=== PATIENT | female | born 1950 | race Caucasian/White ===

== ENCOUNTER 2019-08-13 14:03 | Outpatient (CLI) | payer MEDICARE, SELFPAY ==
[2019-08-13 15:43] LABS: Add Urine Microscopic? YES; Appearance Urine Clear (Clear); Basophils Percent Auto 0.4 % (0.2-1.2); Bilirubin Urine Negative (Negative); Blood Urine 1+ (Negative); Color Urine Yellow (Yellow); Eosinophils Absolute Auto 0.2 K/mm3 (0-0.3); Eosinophils Percent Auto 2.2 % (0-4.4); Glucose Urine UA Negative (Negative); Hematocrit 41.5 % (37.0-47.0); Immature Granulocyte Absolute 0.03 K/mm3 (0.00-0.031); Immature Granulocyte Percent A 0.4 % (0-0.5); Ketones Urine Trace mg/dL (Negative); Leukocyte Esterase Ur Negative LEU/UL (Negative); Lymphocytes Absolute Auto 2.47 K/mm3 (0.9-3.2); Lymphocytes Percent Auto 30.8 % (18.3-44.2); Mean Corpuscular HGB Conc 31.3 g/dl (32-36); Mean Corpuscular Hemoglobin 29.5 pg (26-34); Mean Corpuscular Volume 94.1 fl (80-100); Mean Platelet Volume 11.9 fl (7.4-10.4); Monocytes Absolute Auto 0.6 K/mm3 (0.1-0.6); Mucus Urine Rare /lpf; Neutrophils Absolute Auto 4.8 K/mm3 (1.3-6.7); Neutrophils Percent Auto 59.2 % (45.5-73.1); Nitrate Urine Negative (Negative); Platelet Count Result 173 k/mm3 (150-375); Protein Urine 1+ mg/dL (Negative); Red Blood Count 4.41 M/mm3 (4.2-5.4); Red Cell Distribution Width 13.2 % (11.5-14.5); Squamous Epithelial Cell Urine Few /hpf (Few); WBC Urine 0-3 /hpf
[2019-08-13 15:48] LABS: INR 0.9; Prothrombin Time 12.2 Seconds (11.1-14.7)
[2019-08-13 15:49] LABS: Partial Thromboplastin Time 31.5 SECONDS (22.3-36.8)
[2019-08-13 15:51] LABS: Albumin Level 4.1 g/dL (3.5-5.1); Blood Urea Nitrogen 14 mg/dL (7-17); Calcium 8.3 mg/dL (8.4-10.2); Carbon Dioxide 32 mmol/L (22-30); Chloride 99 mmol/L (98-107); Estimated Glomerular Filt Rate > 60; Glucose 86 mg/dL (65-105); Potassium 3.9 mmol/L (3.4-5.0); Sodium 142 mmol/L (137-145)
[2019-08-13 16:10] LABS: Hemoglobin A1C 5.5 % (<5.7)
[2019-08-13 16:22] LABS: Urine Cotinine NEGATIVE
== END 2019-08-13 14:04 | disposition home or self-care (01) ==
LOC: ANHSURGERY 14:08
PROVIDERS: PCP Family Medicine Adolescent Medicine; Visit Provider Orthopaedic Surgery
DX: Z01.818 Encounter for other preprocedural examination (principal); M17.11 Unilateral primary osteoarthritis, right knee
CPT/HCPCS: 36415; 80048; 80307; 81001; 82040; 83036; 85025; 85610; 85730; 86850; 86900; 86901; 87081

== ENCOUNTER 2019-08-19 14:49 | Inpatient (IN) | payer MEDICARE, SELFPAY ==
[2019-08-13 14:43] VITALS: BP 128/54; PULSE 50; RESP 20; TEMP 36.8; O2SAT 97; BMI 23.7
[2019-08-19] VITALS (12 sets, daily range): BP systolic 111–168; BP diastolic 46–84; PULSE 51–85; RESP 12–18; TEMP 36.3–37.1; O2SAT 95–100
--- NOTE | ~2019-08-19 | XR_ITS ---
EXAMINATION: XR knee RT 2V DATE: 08/19/2019 14:53 CDT INDICATION: Right total knee arthroplasty TECHNIQUE: 2 views right knee FINDINGS: There is a right total knee arthroplasty in expected position. Subcutaneous gas with fluid and air in the joint and overlying skin rufus are consistent with recent surgery. No evidence of p eriprosthetic fracture. IMPRESSION: 1. Recent right total knee arthroplasty. Reviewed, dictated and finalized at location A.
--- NOTE | 2019-08-19 08:20 | WPDHPUPDATE1 ---
History and Physical Update Update Date/Time: 08/19/19 08:20 History and Physical has been reviewed, including an updated exam of the patient. There are NO changes in the patient's condition. Risks, benefits, and alternatives have been discussed and questions answered. Patient agrees to proceed with procedure.
--- NOTE | 2019-08-19 08:21 | WPDHPUPDATE1 ---
History and Physical Update Update Date/Time: 08/19/19 08:21 History and Physical has been reviewed, including an updated exam of the patient. There are NO changes in the patient's condition. Risks, benefits, and alternatives have been discussed and questions answered. Patient agrees to proceed with procedure.
--- NOTE | 2019-08-19 09:35 | WPDANESPNB ---
Anes - Peripheral Nerve Block Date/Time: 08/19/19 09:35 I have discussed with the patient/family/POA the placement of a peripheral nerve block for post-operative pain management, including associated risks, benefits, complications, and side effects. Alternative methods of post-operative analgesia were detailed. Questions were solicited and answers provided to the satisfaction of the patient/family/POA. Time-Out: A pre-procedural Time-Out was completed immediately before starting the procedure and confirmed: Patient Identification, Site, Procedure, Patient Position and the Availability of Requisite Equipment. Clinical Indications: Acute post-operative pain management requested by the operative surgeon. Nerve Block Insertion Note Anes-nerve block: adductor canal right Patient position: supine Skin prep: chlorhexidine Needle: 22 gauge, stimulating, insulated echogenic needle. Needle length: 80 mm Technique: ultrasound Injectate: bupivacaine 0.5% with epi 5 mcg/ml (30cc) Observations: tolerated well Complications: none Procedure start time:: 1144 Procedure end time:: 114
[2019-08-19] MEDS: LACTATED RINGERS 1,000 ML 30 ML IV CONT ×2 (10:40→14:26)
--- NOTE | 2019-08-19 10:51 | WPDANESEPPF ---
Anes - Initial Pre Proc Eval Procedure: Operation Date: 08/19/19 12:00 Proposed Procedures p Right Total Knee Arthroplasty - Hector Merrill MD Date/Time: 08/19/19 10:51 Surgeon: Hector Merrill MD Pre Op Diagnosis: Rt Knee DJD Patient Data Age: 68 Gender: F Height: 1.57 m Weight: 58.9 kg Last Vital Signs Temp 36.8 C 08/13/19 14:43 Pulse 50 L 08/13/19 14:43 Resp 20 08/13/19 14:43 BP 128/54 L 08/13/19 14:43 Pulse Ox 97 08/13/19 14:43 Allergies Allergy/AdvReac Type Severity Reaction Status Date / Time adhesive tape Allergy Unknown RASH Verified 08/19/19 11:08 clindamycin Allergy Unknown Diarrhea Verified 08/19/19 11:08 morphine Allergy Unknown Nausea and Verified 08/19/19 11:08 Vomiting nitrofurantoin Allergy Unknown Nausea and Verified 08/19/19 11:08 Vomiting Penicillins Allergy Unknown Rash Verified 08/19/19 11:08 Sulfa (Sulfonamide AdvReac Mild FINE RASH Verified 08/19/19 11:08 Antibiotics) Home Medications Medication Instructions Recorded Confirmed Type chlorhexidine gluconate 4 % 1 applic TOPICAL ONCE #237 ml 07/22/19 08/13/19 Rx topical liquid alirocumab [Praluent Pen] 75 mg SUBCUT ONCE 08/13/19 08/13/19 History alprazolam 1 mg PO TID PRN 08/13/19 08/13/19 History clonazepam [Klonopin] 1 mg PO HS 08/13/19 08/13/19 History oamaksb-jwncfileng-TBJ-caff 1 cap PO Q4-6H PRN 08/13/19 08/13/19 History [Ascomp with Codeine] donepezil [Aricept] 10 mg PO HS 08/13/19 08/13/19 History duloxetine [Cymbalta] 60 mg PO DAILY 08/13/19 08/13/19 History ezetimibe [Zetia] 10 mg PO HS 08/13/19 08/13/19 History fexofenadine [Swapna Allergy] 180 mg PO DAILY 08/13/19 08/13/19 History gabapentin 800 mg PO QID 08/13/19 08/13/19 History memantine 5 mg PO BID 08/13/19 08/13/19 History nitroglycerin [Nitrostat] 0.4 mg SUBLINGUAL ONCE PRN 08/13/19 08/13/19 History oxycodone 15 mg PO Q6H PRN 08/13/19 08/13/19 History pantoprazole 40 mg PO HS 08/13/19 08/13/19 History rosuvastatin [Crestor] 40 mg PO HS 08/13/19 08/13/19 History Other Studies: Neg stress echo , EF 70% 2014 medical and cardiac clearance in chart Patient hx anesthesia problems: none Family hx anesthesia problems: none PMFSH Past Medical History Medical History (Updated 08/18/19 @ 10:41 by Emerson Seals DO) Chronic pain Chronic, continuous use of opioids Dementia Fibromyalgia GERD (gastroesophageal reflux disease) History of heart attack 1994 Hyperlipidemia Migraine MVP (mitral valve prolapse) Neuropathy Osteoarthritis Seizure last one in Surgical History Surgical History (Updated 08/18/19 @ 10:41 by Emerson Seals DO) History of coronary artery stent placement x2 2007 Hx of CABG x2 vessel 1994 Social History Social History Smoking status: Current every day smoker Alcohol intake: current Anes - Eval Final PreProcedure Day of Procedure 08/19/19 10:51 Patient weight: normal Heart: regular rate and rhythm Lungs: clear to auscultation and normal air movement Airway: Mallampati scale class III Neurological: alert and oriented Last oral intake: >/= 8 hours ASA classification: III Emergent: no Anesthetic plan: proceed Anesthesia type and monitoring: general LMA and standard monitoring Informed Consent: The patient's anesthetic plan and its attendant risks and benefits were discussed with the patient/family/POA. Questions were solicited and answers provided to the satisfaction of the patient/family/POA.
[2019-08-19] MEDS: TRANEXAMIC ACID 1,000MG/ISO100 1,000 MG/100 ML BAG 200 MG IVPB (11:15)
[2019-08-19] MEDS: IBUPROFEN IV 800 MG/200 ML 800 MG/200 ML BAG 400 MG IVPB (11:25)
[2019-08-19] MEDS: ceFAZolin 2 GM/D5W 50 ML 2 GM/50 ML BAG IVPB ×2 (11:57→17:29)
[2019-08-19] MEDS: GENTAMICIN BONE CEMENT REFOBACIN 1 EACH TOPICAL (13:02)
--- NOTE | 2019-08-19 14:43 | PM.OP ---
Procedure Note - Brief Procedure Note - Brief Date of procedure: 08/19/19 Pre-op diagnosis: Rt Knee DJD Post-op diagnosis: same Procedure performed: R TKA Anesthesia: GETA Surgeon: Hector Merrill MD Estimated blood loss (mL): 100 Complications: No immediate complications Condition: stable Disposition: PACU
--- NOTE | 2019-08-19 16:36 | ADMGEN ---
This patient, Natalie Millan, was admitted to 3 Med Surg Room 329-01. Patient/family oriented to hospital policies and general routines including ID bracelet, bed and alarms, visiting hours, pain management, procedures, bathroom and other care routines, personal items, smoking policy, room service/diet, and visiting hours. Valuables list has been completed. Information on how to activate the Rapid Response Team has been discussed. Patient/Family are encouraged to report perceived risks to care and to ask questions if they do not understand what they are told or what they should do.
[2019-08-19] MEDS: DOCUSATE SODIUM 100 MG CAPSULE PO (17:26)
[2019-08-19] MEDS: CELECOXIB 200 MG CAPSULE PO (17:27)
[2019-08-19] MEDS: MEMANTINE 5 MG TABLET PO (17:27)
[2019-08-19] MEDS: SODIUM CHLORIDE 0.9% IV 1,000 ML 125 ML IV CONT (18:02)
[2019-08-19] MEDS: DIAZEPAM 5 MG TABLET PO (19:02)
--- NOTE | 2019-08-19 20:23 | OP_ITS ---
DATE OF PROCEDURE: 08/19/2019 PREOPERATIVE DIAGNOSIS: Right knee DJD. POSTOPERATIVE DIAGNOSIS: Right knee DJD. PROCEDURE: Right total knee arthroplasty. ANESTHESIA: General. COMPLICATIONS: None. INDICATIONS: This is a 68-year-old female with right knee DJD and severe pain and she was indicated for right total knee arthroplasty. DESCRIPTION OF PROCEDURE: The patient was taken to the operating room in stable condition and placed in the supine position. General anesthesia was induced and then, the right lower extremity was prepped and draped sterilely from the toes to the thigh. A midline skin incision was made. Medial parapatellar arthrotomy was made. Patella was everted. IM emily was placed in the femur and distal femoral cut was made at 5 degrees of valgus on the femur removing approximately 9 mm of bone from the high side. Next, the knee was sized to a 65, so a cutting block then was placed in line with Whitesides line and anterior, posterior, and chamfer cuts were made to the femur. Next, an IM emily was placed in the tibia and a transtibial cut was made removing approximately 10 mm of bone from the high side of the tibia. The tibia was planed to a smooth surface. Posterior osteophytes were removed from the femur with an osteotome. A trial of 75 tibial component was placed and then, a trial 65 femoral component was placed. The tibial trial was in line with the 1/3rd medial aspect of the tibial tubercle. A 12 CR poly trial was placed, and the knee came out to full extension. Next, the patella was measured and it measured approximately 27 mm in thickness. The patella then was cut and the cut was approximately 7 mm. A patellar component guide then was placed and drill holes were performed. A trial 31 patellar component was placed. Then, the knee joint was reduced when the knee was placed for range of motion and it was found that there was good patellar tracking without any tilt. There was good stability in varus and valgus stress. There was good anterior-posterior stability and the knee came out to full extension. There was no excessive rollback in flexion. Trial instrumentation was removed and then, a Biomet #75 tibia was cemented in place and then, a 65 femoral component was cemented into place and then, a 31 3-pronged polyethylene patellar component was placed. Once cement was hardened, the knee came out to full extension again and it was very stable in the anterior-posterior plane also of the varus-valgus plane as well. The patella tracked without any tilt. There was no excessive rollback in flexion. The wound was irrigated thoroughly. The tourniquet was deflated. The bleeders were cauterized. The knee joint was irrigated with sterile Betadine sterile water for 3 minutes and the fascial layer was approximated with #1 Vicryl, subcutaneous tissue with 2-0 Vicryl, and the skin was approximated with rufus. Wound was washed, placed a sterile dressing. The patient was extubated, sent to Recovery. Liz I MT: Riley
[2019-08-19] MEDS: DONEPEZIL HCL 10 MG TABLET PO (20:52)
[2019-08-19] MEDS: ROSUVASTATIN 10 MG TABLET 40 MG PO (20:53)
[2019-08-19] MEDS: FAMOTIDINE 20 MG TABLET PO (20:53)
[2019-08-19] MEDS: EZETIMIBE 10 MG TABLET PO (20:53)
[2019-08-20 02:00] VITALS: BP 130/60; PULSE 63; RESP 18; TEMP 37.2; O2SAT 97
[2019-08-20] MEDS: ceFAZolin 2 GM/D5W 50 ML 2 GM/50 ML BAG IVPB ×2 (02:36→10:06)
[2019-08-20 06:00] VITALS: BP 133/63; PULSE 60; RESP 20; TEMP 36.4; O2SAT 99
[2019-08-20 06:05] LABS: Basophils Percent Auto 0.1 % (0.2-1.2); Eosinophils Percent Auto 0.1 % (0-4.4); Hematocrit 33.4 % (37.0-47.0); Hemoglobin 10.5 g/dL (12.0-15.0); Immature Granulocyte Absolute 0.08 K/mm3 (0.00-0.031); Immature Granulocyte Percent A 0.6 % (0-0.5); Lymphocytes Absolute Auto 1.55 K/mm3 (0.9-3.2); Lymphocytes Percent Auto 11.1 % (18.3-44.2); Mean Corpuscular HGB Conc 31.4 g/dl (32-36); Mean Corpuscular Hemoglobin 29.5 pg (26-34); Mean Corpuscular Volume 93.8 fl (80-100); Monocytes Absolute Auto 0.7 K/mm3 (0.1-0.6); Monocytes Percent Auto 4.9 % (2.6-8.5); Neutrophils Absolute Auto 11.6 K/mm3 (1.3-6.7); Neutrophils Percent Auto 83.2 % (45.5-73.1); Platelet Count Result 112 k/mm3 (150-375); Red Blood Count 3.56 M/mm3 (4.2-5.4); Red Cell Distribution Width 12.9 % (11.5-14.5)
[2019-08-20 07:25] LABS: Blood Urea Nitrogen 9 mg/dL (7-17); Calcium 8.6 mg/dL (8.4-10.2); Carbon Dioxide 31 mmol/L (22-30); Chloride 106 mmol/L (98-107); Estimated CRCL calculation 59 ml/min; Estimated Glomerular Filt Rate > 60; Glucose 100 mg/dL (65-105); Potassium 4.5 mmol/L (3.4-5.0); Sodium 139 mmol/L (137-145)
--- NOTE | 2019-08-20 08:42 | P.PNAN_ITS ---
Anes - Prog Note Post-Op Date/Time: 08/20/19 08:42 Cardiovascular status: normal Respiratory status: normal Airway patency: baseline Mental status: baseline Post-Op hydration status: normal Vital Signs: Last Vital Signs Temp 97.6 F 08/20/19 06:00 Pulse 60 08/20/19 06:00 Resp 20 08/20/19 06:00 BP 133/63 08/20/19 06:00 Pulse Ox 99 08/20/19 06:00 Pain Score (VAS): knee pain tolerable and well controlled with block. pt's primary complaint is her chronic back pain. using her spinal stimulator to try to control. awaiting ortho to adjust pain meds. I/O: Intake & Output 08/19/19 08/20/19 08/20/19 23:59 07:59 15:59 Intake Total 690 1050 Balance 690 1050 Laboratory Tests 08/20/19 05:41 08/20/19 05:41 08/20/19 08/20/19 05:41 05:41 WBC 14.0 H RBC 3.56 L Hgb 10.5 L Hct 33.4 L MCV 93.8 MCH 29.5 MCHC 31.4 L RDW 12.9 Plt Count 112 L MPV 12.0 H Immature Gran % (Auto) 0.6 H Neut % (Auto) 83.2 H Lymph % (Auto) 11.1 L [place] % (Auto) 4.9 Eos % (Auto) 0.1 Baso % (Auto) 0.1 L Lymph # (Auto) 1.55 [place] # (Auto) 0.7 H Eos # (Auto) 0.0 Baso # (Auto) 0.0 Abs Immat Gran (auto) 0.08 H Absolute Neuts (auto) 11.6 H Absolute Nucleated RBC 0.0 Nucleated RBC % 0.0 Sodium 139 Potassium 4.5 Chloride 106 Carbon Dioxide 31 H BUN 9 D Creatinine 0.60 L Estim Creat Clear Calc 59 Estimated GFR > 60 Glucose 100 Calcium 8.6 Post-procedural complaints: none Patient Feedback: Patient satisfied with anesthetic care.
[2019-08-20] MEDS: DOCUSATE SODIUM 100 MG CAPSULE PO (10:05)
[2019-08-20] MEDS: ASPIRIN 325 MG ENTERIC TABLET 650 MG PO (10:05)
[2019-08-20] MEDS: DULOXETINE 60 MG CAPSULE.DR PO (10:05)
[2019-08-20] MEDS: CELECOXIB 200 MG CAPSULE PO (10:06)
[2019-08-20] MEDS: FAMOTIDINE 20 MG TABLET PO (10:06)
--- NOTE | 2019-08-20 10:45 | PC.NURSE ---
Dr Merrill notified at office that patient safe from physical therapy standpoint for discharge.
[2019-08-20] MEDS: MEMANTINE 5 MG TABLET PO (11:33)
[2019-08-20 12:12] VITALS: BMI 23.3
--- NOTE | 2019-08-20 14:07 | PM.PNORT ---
Progress Note: A&P Additional Plan POD 1 DOING WELL. SHE HAS PASSED PT AND WOULD LIKE TO GO HOME. SHE WILL F/U IN 3 WEEKS. Time Spent With Patient Time with patient: 15 - 25 minutes Subjective Subjective Date/Time Seen: 08/20/19 14:07 POD 1 DOING WELL. NO CALF PAIN Exam Extrem: Other: VSS AFEBRILE DRESSING DRY [place] INTACT NEG HOMANS SIGN. Objective Data Vital Signs Vital Signs: Vital Signs - 24 hr 08/19/19 14:26 08/19/19 14:40 08/19/19 14:49 Temperature 36.8 C 36.3 C L Pulse Rate 82 82 83 Respiratory Rate 13 12 16 Blood Pressure 146/67 H 165/67 H 148/70 H Pulse Oximetry 97 100 96 08/19/19 14:55 08/19/19 15:04 08/19/19 15:10 Temperature 36.3 C L Pulse Rate 85 84 84 Respiratory Rate 14 16 17 Blood Pressure 167/84 H 130/55 L 111/59 L Pulse Oximetry 100 96 95 08/19/19 15:20 08/19/19 15:34 08/19/19 15:35 Temperature 36.4 C L Pulse Rate 72 78 65 Respiratory Rate 13 18 12 Blood Pressure 160/60 H 129/58 L 158/62 H Pulse Oximetry 98 99 98 08/19/19 15:50 08/19/19 22:00 08/20/19 02:00 Temperature 36.7 C 37.2 C Pulse Rate 83 63 63 Respiratory Rate 14 18 18 Blood Pressure 168/67 H 125/50 L 130/60 Pulse Oximetry 99 97 97 08/20/19 06:00 Temperature 36.4 C Pulse Rate 60 Respiratory Rate 20 Blood Pressure 133/63 Pulse Oximetry 99 Intake/Output Intake/Output: Intake & Output 08/17/19 08/18/19 08/19/19 08/20/19 23:59 23:59 23:59 23:59 Intake Total 1040 1770 Output Total 575 Balance 465 1770 Meds/Results Medications: Active Medications Generic Name Dose Route Start Last Admin Trade Name Freq PRN Reason Stop Dose Admin Acetaminophen 1,000 mg 08/19/19 14:49 Tylenol Tablet PO Q6H PRN Mild Pain (1-3) Alprazolam 1 mg 08/19/19 15:57 Xanax PO TID PRN Agitation Aspirin 650 mg 08/20/19 09:00 08/20/19 10:05 Aspirin Ec PO 650 mg DAILY COLLIN Administration Celecoxib 200 mg 08/19/19 17:00 08/20/19 10:06 Celebrex PO 200 mg BIDWM COLLIN Administration Clonazepam 1 mg 08/19/19 21:00 08/20/19 03:56 Klonopin Tablet PO Not Given HS COLLIN Diazepam 5 mg 08/19/19 14:49 08/19/19 19:02 Valium Po PO 5 mg Q8H PRN Administration Spasms Diphenhydramine HCl 25 mg 08/19/19 14:49 Benadryl Inj IV PUSH Q6H PRN Itching Docusate Sodium 100 mg 08/19/19 17:00 08/20/19 10:05 Colace Capsule PO 100 mg BID COLLIN Administration Donepezil HCl 10 mg 08/19/19 21:00 08/19/19 20:52 Aricept PO 10 mg HS COLLIN Administration Duloxetine HCl 60 mg 08/20/19 09:00 08/20/19 10:05 Cymbalta PO 60 mg DAILY COLLIN Administration Ezetimibe 10 mg 08/19/19 21:00 08/19/19 20:53 Zetia PO 10 mg HS COLLIN Administration Famotidine 20 mg 08/19/19 21:00 08/20/19 10:06 Pepcid PO 20 mg Q12HR COLLIN Administration Fentanyl Citrate 25 mcg 08/18/19 10:41 08/19/19 15:49 Sublimaze IV PUSH 25 mcg Q2M PRN Administration Pain Lactated Ringer's 1,000 mls @ 30 mls/hr 08/18/19 10:45 08/20/19 11:37 Lr - Lactated Ringers Iv IV CONT Not Given .Q24H COLLIN Lactated Ringer's 1,000 mls @ 30 mls/hr 08/18/19 10:45 08/20/19 11:38 Lr - Lactated Ringers Iv IV CONT Not Given .Q24H COLLIN Memantine 5 mg 08/19/19 17:00 08/20/19 11:33 Namenda PO 5 mg BID COLLIN Administration Naloxone HCl 0.1 mg 08/19/19 14:49 Narcan IV PUSH Q2M PRN Opiate Reversal Nitroglycerin 0.4 mg 08/19/19 15:57 Nitrostat Subl 0.4 Mg (1/150) SUBLINGUAL ONCE PRN Chest Pain Non-Formulary Medication 75 mg 08/19/19 15:57 Alirocumab [Praluent Pen] SUB-Q 09/18/19 15:58 ONCE COLLIN Ondansetron HCl 4 mg 08/18/19 10:41 Zofran Inj IV PUSH ONCE PRN Nausea Ondansetron HCl 4 mg 08/19/19 14:49 Zofran Inj IV PUSH Q4H PRN Nausea And Vomiting Oxycodone/Acetaminophen 1 tablet 08/19/19 14:49 08/20/19 02:40 Percocet 5-325 Mg PO 1 ta
--- NOTE | 2019-08-20 14:16 | P.DS_ITS ---
DS: Diagnosis Admitting Diagnosis Admitting Diagnosis: Unilateral primary osteoarthritis, right knee DS: Summary Time Spent with Patient Time attestation: Total time spent providing and/or coordinating discharge se rvices: DS: Data Data Completed and Pending Labs on day of discharge: Labs from last 24 hours 08/20/19 08/20/19 05:41 05:41 WBC 14.0 H RBC 3.56 L Hgb 10.5 L Hct 33.4 L MCV 93.8 MCH 29.5 MCHC 31.4 L RDW 12.9 Plt Count 112 L MPV 12.0 H Immature Gran % (Auto) 0.6 H Neut % (Auto) 83.2 H Lymph % (Auto) 11.1 L [place] % (Auto) 4.9 Eos % (Auto) 0.1 Baso % (Auto) 0.1 L Lymph # (Auto) 1.55 [place] # (Auto) 0.7 H Eos # (Auto) 0.0 Baso # (Auto) 0.0 Abs Immat Gran (auto) 0.08 H Absolute Neuts (auto) 11.6 H Absolute Nucleated RBC 0.0 Nucleated RBC % 0.0 Sodium 139 Potassium 4.5 Chloride 106 Carbon Dioxide 31 H BUN 9 D Creatinine 0.60 L Estim Creat Clear Calc 59 Estimated GFR > 60 Glucose 100 Calcium 8.6 Discharge Plan Discharge Attending physician on discharge: Hector Merrill Consulting providers: Shaggy Spence Discharging Clinician: Hector Merrill Anticipated Discharge Date/Time: 08/20/19 14:11 Patient Disposition: Home Health Service Activity: may shower, no driving and follow weight bearing status Diet: as tolerated Wound Care Instructions: keep dressing dry Discharge Instructions: TAKE ASPIRIN 325 MG 2 TABS PER DAY X 4 WEEKS Patient Instructions: Antibiotic Form, Pain Management (DC), Precautions after Total Joint Replacement Surgery (DC), Knee Replacement (DC) Stand Alone Forms: General Discharge Information Follow-up/Referrals: Hector Merrill MD [Physician] - 3 Weeks Discharge Medications: Continued alprazolam 1 mg Tablet 1 mg PO TID PRN (Reason: Agitation) RF: 0 donepezil [Aricept] 10 mg Tablet 10 mg PO HS RF: 0 clonazepam [Klonopin] 1 mg Tablet 1 mg PO HS RF: 0 fexofenadine [Swapna Allergy] 180 mg Tablet 180 mg PO DAILY RF: 0 oxycodone 15 mg Tablet 15 mg PO Q6H PRN (Reason: PAIN) RF: 0 gabapentin 800 mg Tablet 800 mg PO QID RF: 0 boyqcoc-telzyjdhat-HYI-caff [Ascomp with Codeine] 25-11-199-40 mg Capsule 1 cap PO Q4-6H PRN (Reason: MIGRAINE) RF: 0 pantoprazole 40 mg Tablet,Delayed Release (Dr/Ec) 40 mg PO HS RF: 0 nitroglycerin [Nitrostat] 0.4 mg Tablet, Sublingual 0.4 mg SUBLINGUAL ONCE PRN (Reason: Chest Pain) RF: 0 ezetimibe [Zetia] 10 mg Tablet 10 mg PO HS RF: 0 rosuvastatin [Crestor] 40 mg Tablet 40 mg PO HS RF: 0 memantine 5 mg Tablet 5 mg PO BID RF: 0 duloxetine [Cymbalta] 60 mg Capsule,Delayed Release(Dr/Ec) 60 mg PO DAILY RF: 0 Praluent Pen 75 mg/mL Pen Injector 75 mg SUBCUT ONCE RF: 0 chlorhexidine gluconate [Hibiclens] 4 % liquid 1 applic TOPICAL ONCE Qty: 237 RF: 0 Date of admission: 08/19/19 14:49 Primary Care Provider: Abdiel Butcher Admitting Provider: Hector Merrill Attending physician on admission: Hector Merrill Quality VTE Prophylaxis VTE prophylaxis: pharmacologic ordered
--- NOTE | 2019-08-20 14:17 | P.DS_ITS ---
DS: Diagnosis Admitting Diagnosis Admitting Diagnosis: Unilateral primary osteoarthritis, right knee DS: Summary Time Spent with Patient Time attestation: Total time spent providing and/or coordinating discharge se rvices: DS: Data Data Completed and Pending Labs on day of discharge: Labs from last 24 hours 08/20/19 08/20/19 05:41 05:41 WBC 14.0 H RBC 3.56 L Hgb 10.5 L Hct 33.4 L MCV 93.8 MCH 29.5 MCHC 31.4 L RDW 12.9 Plt Count 112 L MPV 12.0 H Immature Gran % (Auto) 0.6 H Neut % (Auto) 83.2 H Lymph % (Auto) 11.1 L [place] % (Auto) 4.9 Eos % (Auto) 0.1 Baso % (Auto) 0.1 L Lymph # (Auto) 1.55 [place] # (Auto) 0.7 H Eos # (Auto) 0.0 Baso # (Auto) 0.0 Abs Immat Gran (auto) 0.08 H Absolute Neuts (auto) 11.6 H Absolute Nucleated RBC 0.0 Nucleated RBC % 0.0 Sodium 139 Potassium 4.5 Chloride 106 Carbon Dioxide 31 H BUN 9 D Creatinine 0.60 L Estim Creat Clear Calc 59 Estimated GFR > 60 Glucose 100 Calcium 8.6 Discharge Plan Discharge Attending physician on discharge: Hector Merrill Consulting providers: Shaggy Spence Discharging Clinician: Hector Merrill Anticipated Discharge Date/Time: 08/20/19 14:11 Patient Disposition: Home Health Service Activity: may shower, no driving and follow weight bearing status Diet: as tolerated Wound Care Instructions: keep dressing dry Discharge Instructions: TAKE ASPIRIN 325 MG 2 TABS PER DAY X 4 WEEKS Patient Instructions: Antibiotic Form, Pain Management (DC), Precautions after Total Joint Replacement Surgery (DC), Knee Replacement (DC) Stand Alone Forms: General Discharge Information Follow-up/Referrals: Hector Merrill MD [Physician] - 3 Weeks Discharge Medications: Continued alprazolam 1 mg Tablet 1 mg PO TID PRN (Reason: Agitation) RF: 0 donepezil [Aricept] 10 mg Tablet 10 mg PO HS RF: 0 clonazepam [Klonopin] 1 mg Tablet 1 mg PO HS RF: 0 fexofenadine [Swapna Allergy] 180 mg Tablet 180 mg PO DAILY RF: 0 oxycodone 15 mg Tablet 15 mg PO Q6H PRN (Reason: PAIN) RF: 0 gabapentin 800 mg Tablet 800 mg PO QID RF: 0 gaoayvh-uzaibedowj-BJH-caff [Ascomp with Codeine] 73-81-606-40 mg Capsule 1 cap PO Q4-6H PRN (Reason: MIGRAINE) RF: 0 pantoprazole 40 mg Tablet,Delayed Release (Dr/Ec) 40 mg PO HS RF: 0 nitroglycerin [Nitrostat] 0.4 mg Tablet, Sublingual 0.4 mg SUBLINGUAL ONCE PRN (Reason: Chest Pain) RF: 0 ezetimibe [Zetia] 10 mg Tablet 10 mg PO HS RF: 0 rosuvastatin [Crestor] 40 mg Tablet 40 mg PO HS RF: 0 memantine 5 mg Tablet 5 mg PO BID RF: 0 duloxetine [Cymbalta] 60 mg Capsule,Delayed Release(Dr/Ec) 60 mg PO DAILY RF: 0 Praluent Pen 75 mg/mL Pen Injector 75 mg SUBCUT ONCE RF: 0 chlorhexidine gluconate [Hibiclens] 4 % liquid 1 applic TOPICAL ONCE Qty: 237 RF: 0 Date of admission: 08/19/19 14:49 Primary Care Provider: Abdiel Butcher Admitting Provider: Hector Merrill Attending physician on admission: Hector Merrill Quality VTE Prophylaxis VTE prophylaxis: pharmacologic ordered
[2019-08-20 14:36] VITALS: BP 167/61; PULSE 60; RESP 18; TEMP 36.8; O2SAT 97
--- NOTE | 2019-08-20 22:05 | CONS_ITS ---
DATE OF CONSULTATION: 08/20/2019 This is a consult for Dr. Merrill, Orthopedics, medical consultation. HISTORY OF PRESENT ILLNESS: The patient has a history of coronary artery disease, intractable back pain, aneurysm, anxiety, depression, esophagitis, overactive bladder. The patient admitted to the Orthopedic Service under Dr. Merrill for right knee arthroplasty. The patient did well, had her right knee arthroplasty for right knee DJD. No significant problems. MEDICATIONS ON ADMISSION: 1. Crestor 40 p.o. daily. 2. Nitroglycerin 0.4 sublingual. 3. Memantine 5 p.o. b.i.d. 4. Zetia 10 p.o. q.h.s. 5. Cymbalta 60 p.o. daily. 6. Aricept 10 p.o. q.h.s. 7. Klonopin 1 mg p.o. q.h.s. 8. Xanax 1 mg p.o. t.i.d. p.r.n. 9. Protonix 40 p.o. q.h.s. 10. Oxycodone 15 p.o. q.6 p.r.n. 11. Praluent Pen 75 subcutaneous daily. 12. Gabapentin 800 p.o. q.i.d. 13. Swapna 180 p.o. daily. 14. Codeine 32-78-469-40 for migraine. 15. Hibiclens 4% liquid 1 application daily. ALLERGIES: THE PATIENT HAS ALLERGIES TO ADHESIVE TAPE, CLINDAMYCIN, MORPHINE, NITROFURANTOIN, PENICILLIN, SULFA. PAST MEDICAL HISTORY: CAD, lumbar spinal stenosis with chronic back pain, migraine, peripheral neuropathy, anxiety, depression, esophagitis. PAST SURGICAL HISTORY: CABG in 1994, stents in 2006, neck surgery in and , bilateral cataracts. SOCIAL HISTORY: The patient sees Dr. Walker. Smokes occasionally. FAMILY HISTORY: Father has MA. Mother has MA. REVIEW OF SYSTEMS: Systems review positive for knee pain only. PHYSICAL EXAMINATION: VITAL SIGNS: Stable on discharge. GENERAL: The patient is in no acute distress. HEENT: PERRLA. NECK: Supple. LUNGS: Sounds are normal. HEART: Sounds normal. ABDOMEN: Soft, nontender. EXTREMITIES: The patient has a fresh occlusive dressing on the right knee with minimal swelling up to the calf with mild bruising on the knee. PSYCH: The patient is quite anxious. ASSESSMENT AND PLAN: 1. Status post right knee arthroplasty. 2. History of lumbar spinal stenosis. 3. History of intractable back pain. 4. Coronary artery disease. 5. Hyperlipidemia. 6. Anxiety. 7. Depression. 8. Gastroesophageal reflux disease. The patient can be discharged on her home medication. The patient to follow routine advice of Orthopedics. On discharge, the patient has some concerns about bruising of the right knee and swelling. The patient is advised to watch this for the pain or tenderness or increase in redness, mentioned that this is normal after surgery to have some swelling and some minimal bruising. Total time taken in consultation 25 minutes. TYRA ESPINO M.D. CONCRETE BLOCK MAKER CONCRETE BLOCK MAKER D I MT: Riley FRYE
--- NOTE | 2019-09-04 13:53 | PM.DS ---
DS: Diagnosis Admitting Diagnosis Admitting Diagnosis: Unilateral primary osteoarthritis, right knee Discharge Diagnosis (1) Total knee replacement status: Qualifiers: Laterality: right Qualified Code(s): Z96.651 - Presence of right artificial knee joint Code(s): Z96.659 - Presence of unspecified artificial knee joint Status: Acute (2) Right knee DJD: Code(s): M17.11 - Unilateral primary osteoarthritis, right knee Status: Acute DS: Summary Time Spent with Patient Time attestation: Total time spent providing and/or coordinating discharge services: Discharge Plan Discharge Attending physician on discharge: Hector Merrill Consulting providers: Rizwana Galvin Discharging Clinician: Hector Merrill Anticipated Discharge Date/Time: 08/20/19 14:11 Patient Disposition: Home Health Service Activity: may shower, no driving and follow weight bearing status Diet: as tolerated Wound Care Instructions: keep dressing dry Discharge Instructions: TAKE ASPIRIN 325 MG 2 TABS PER DAY X 4 WEEKS per care coordination, Jero BLUNT arranged to eval and treat. P: [phone] Patient Instructions: Pain Management (DC), Precautions after Total Joint Replacement Surgery (DC), Knee Replacement (DC) Stand Alone Forms: General Discharge Information Follow-up/Referrals: Hector Merrill MD [Physician] - 3 Weeks Discharge Medications: Continued donepezil [Aricept] 10 mg Tablet 10 mg PO HS RF: 0 fexofenadine [Swapna Allergy] 180 mg Tablet 180 mg PO DAILY RF: 0 gabapentin 800 mg Tablet 800 mg PO QID RF: 0 [id number]-caff [Ascomp with Codeine] 66-00-254-40 mg Capsule 1 cap PO DAILY PRN (Reason: MIGRAINE) RF: 0 pantoprazole 40 mg Tablet,Delayed Release (Dr/Ec) 40 mg PO BID RF: 0 nitroglycerin [Nitrostat] 0.4 mg Tablet, Sublingual 0.4 mg SUBLINGUAL ONCE PRN (Reason: Chest Pain) RF: 0 ezetimibe [Zetia] 10 mg Tablet 10 mg PO HS RF: 0 rosuvastatin [Crestor] 40 mg Tablet 40 mg PO HS RF: 0 memantine 5 mg Tablet 5 mg PO BID RF: 0 duloxetine [Cymbalta] 60 mg Capsule,Delayed Release(Dr/Ec) 60 mg PO DAILY RF: 0 Praluent Pen 75 mg/mL Pen Injector 75 mg SUBCUT [id number] RF: 0 No Action aspirin 325 mg Tablet 650 mg PO DAILY RF: 0 doxycycline monohydrate 100 mg capsule 100 mg PO BID Qty: 20 RF: 0 alprazolam 1 mg Tablet 1 mg PO TID PRN (Reason: Agitation) Qty: 10 RF: 0 clonazepam [Klonopin] 1 mg Tablet 1 mg PO HS Qty: 10 RF: 0 oxycodone 15 mg Tablet 15 mg PO Q6H PRN (Reason: PAIN) Qty: 10 RF: 0 Date of admission: 08/19/19 14:49 Primary Care Provider: Abdiel Butcher Admitting Provider: Hector Merrill Discharge Date/Time: 08/20/19 16:00 Attending physician on admission: Hector Merrill Quality VTE Prophylaxis VTE prophylaxis: pharmacologic ordered
== END 2019-08-20 16:00 | disposition home health service (06) | DRG 470 ==
LOC: ANH3MEDSUR 16:16
PROVIDERS: Admitting Provider Orthopaedic Surgery; PCP Family Medicine Adolescent Medicine; Visit Provider Orthopaedic Surgery
PROC: 0SRC0J9 Replacement of Right Knee Joint with Synthetic Substitute, Cemented, Open Approach (ICD-10-PCS; CPT 27447; principal; 2019-08-19 12:00)
DX: M17.11 Unilateral primary osteoarthritis, right knee (principal); F03.90 Unspecified dementia, unspecified severity, without behavioral disturbance, psychotic disturbance, mood disturbance, and anxiety; E78.5 Hyperlipidemia, unspecified; M48.061 Spinal stenosis, lumbar region without neurogenic claudication; G89.29 Other chronic pain; Z96.82 Presence of neurostimulator; F17.200 Nicotine dependence, unspecified, uncomplicated; I25.10 Atherosclerotic heart disease of native coronary artery without angina pectoris; I25.2 Old myocardial infarction; I34.1 Nonrheumatic mitral (valve) prolapse; M79.7 Fibromyalgia; G62.9 Polyneuropathy, unspecified; K21.9 Gastro-esophageal reflux disease without esophagitis; G43.909 Migraine, unspecified, not intractable, without status migrainosus; N32.81 Overactive bladder; F41.8 Other specified anxiety disorders; Z79.891 Long term (current) use of opiate analgesic; Z79.899 Other long term (current) drug therapy; Z91.81 History of falling; Z95.1 Presence of aortocoronary bypass graft; Z95.5 Presence of coronary angioplasty implant and graft
CPT/HCPCS: 36415; 73560; 80048; 80307; 81001; 82040; 83036; 85025; 85610; 85730; 86850; 86900; 86901; 87081; 97110; 97116; 97161; 97165; 97530; 97535; A9270; C1713; C1776; J0131; J0171; J0690; J1100; J1741; J2250; J2270; J2370; J2405; J2704; J2795; J3010; J7030; J7120

== ENCOUNTER 2019-08-25 17:12 | Inpatient (IN) | payer MEDICARE, SELFPAY ==
[2019-08-25] VITALS (9 sets, daily range): BP systolic 115–147; BP diastolic 45–67; PULSE 73–104; RESP 13–20; TEMP 36.2–37.3; O2SAT 93–99; BMI 24.9
--- NOTE | ~2019-08-25 | XR_ITS ---
EXAMINATION: XR hip RT min 3V w AP pelvis INDICATION: Right hip pain TECHNIQUE: AP view the pelvis and two views of the right hip are obtained. COMPARISON: None available FINDINGS: Bone alignment is normal. There is no fracture. The visualized soft tissues are unremarkabl e. A neurostimulator device projects over the left iliac wing. IMPRESSION: 1. No acute osseous abnormality. Reviewed, dictated and finalized at location A.
--- NOTE | ~2019-08-25 | XR_ITS ---
EXAMINATION: XR chest 2V DATE: 08/25/2019 19:32 INDICATION: Pain after fall TECHNIQUE: AP and lateral views of the chest are obtained. COMPARISON: 05/13/2015 FINDINGS: The lungs are free of acute opacities. There is no pleural effusion or pneumothorax. Median sternotomy wires are consistent with prior cardiac surgery. Neurostimulator leads entering the centr al spinal canal projecting over the midthoracic spine. There is moderate thoracic spondylosis. IMPRESSION: 1. No acute cardiopulmonary abnormality. Reviewed, dictated and finalized at location A.
--- NOTE | ~2019-08-25 | CT_ITS ---
EXAMINATION: CT brain wo con INDICATION: Head injury COMPARISON: 10/08/2013 TECHNIQUE: Standard unenhanced head CT. The dose-length product (DLP) was 605.33 mGy-cm. The mA was a djusted according to patient size. Iterative reconstruction technique was employed. FINDINGS: There is no acute intraparenchymal hemorrhage. No evidence of mass lesion. Left parasellar aneurysm clips are again noted. No evidence of acute infarction. There is mild periventricular and virgen bcortical hypodensity probably related to small vessel ischemic disease. There is mild prominence of the sulci and ventricles related to cerebral atrophy. Intracranial calcified cerebral atherosclerosis is noted. There are no extra-axial collections. There is no mass effect or midline shift. Changes in the globes are likely from ocular lens surgery. The visualized sinuses and mastoid air cells are we ll aerated. Surgical defect is noted within the left temporal bone. IMPRESSION: 1. No acute intracranial abnormality. 2. Age related findings. Reviewed, dictated and finalized at location A.
--- NOTE | ~2019-08-25 | CT_ITS ---
EXAMINATION: CT cervical spine wo con DATE: 08/25/2019 19:30 INDICATION: Neck pain TECHNIQUE: Computed tomography (CT) of the cervical spine was performed without intravenous contrast. The dose-length product (DLP) was 141.81 mGy-cm. Automated exposure control and iterative reconstruc tion technique were employed. COMPARISON: None FINDINGS: There are changes of anterior fusion from C4 through C6. No fracture is identified. The caron tebral body heights and alignment are normal. There is moderate loss of intervertebral disc space hei ght at C3-4, C5-6, and C6-7. The odontoid is intact. The prevertebral soft tissues are normal. There are minimal airspace opacities of the visualized lung apices. IMPRESSION: 1. Surgical changes in the cervical spine without acute osseous abnormality. 2. Moderate cervical spondylosis. Reviewed, dictated and finalized at location A.
--- NOTE | ~2019-08-25 | XR_ITS ---
EXAMINATION: XR knee RT 3V DATE: 08/25/2019 19:32 INDICATION: Right knee pain, recent knee replacement TECHNIQUE: Four views of the right knee were obtained. COMPARISON: 08/19/2019 FINDINGS: There are postsurgical changes of total knee arthroplasty. There is expected soft tissue ed todd and joint effusion, both of which have decreased. The hardware appears to be intact. IMPRESSION: 1. Changes of recent total knee arthroplasty without evidence of acute abnormality. Reviewed, dictated and finalized at location A. IMPRESSION: 1. Changes of recent total knee arthroplasty without evidence of acute abnormal ity.
--- NOTE | 2019-08-25 17:17 | ED.FALL ---
HPI - Fall General Chief Complaint: Back Pain/Injury Stated Complaint: fall Time Seen by Provider: 08/25/19 17:14 Source: patient, EMS and RN notes reviewed Mode of arrival: EMS Limitations: no limitations History of Present Illness HPI Narrative: Pt is a 68 y/o female who presents to the ED with c/o a fall that occurred last night. Pt notes that she lost her balance and fell in the bathroom. Pt also notes that she hit her posterior head on the bath tub. Per EMS, pt had right knee surgery on 08/19/[address] Merrill. EMS states that her right knee is hot to the touch. Per EMS, pt's family reports the pt is confused, but not severely confused. Pt's confusion began today. EMS states that pt was talking to her spouse about her son being deployed to [facility] which is not true. EMS states the pt's son has been home for about 10 years now. Pt also reports right hip pain and chronic back pain, but denies a fever, vision changes, nausea, abdominal pain, and chest pain. MD complaint: fall Onset (ago): day(s) (1) Fall from: standing Place fall occurred: home Loss of consciousness: none Prolonged down time: no Symptoms prior to fall: none Context: tripped/slipped Location of injury: head (posterior) Associated symptoms (after fall): other (right hip pain, chronic back pain) Related Data Home Medications Medication Instructions Recorded Confirmed Praluent Pen 75 mg SUBCUT ONCE 08/13/19 08/19/19 alprazolam 1 mg PO TID PRN 08/13/19 08/19/19 clonazepam [Klonopin] 1 mg PO HS 08/13/19 08/19/19 crrpebz-aehxmfszke-UKH-caff 1 cap PO Q4-6H PRN 08/13/19 08/19/19 [Ascomp with Codeine] donepezil [Aricept] 10 mg PO HS 08/13/19 08/19/19 duloxetine [Cymbalta] 60 mg PO DAILY 08/13/19 08/19/19 ezetimibe [Zetia] 10 mg PO HS 08/13/19 08/19/19 fexofenadine [Swapna Allergy] 180 mg PO DAILY 08/13/19 08/19/19 gabapentin 800 mg PO QID 08/13/19 08/19/19 memantine 5 mg PO BID 08/13/19 08/19/19 nitroglycerin [Nitrostat] 0.4 mg SUBLINGUAL ONCE PRN 08/13/19 08/19/19 oxycodone 15 mg PO Q6H PRN 08/13/19 08/19/19 pantoprazole 40 mg PO HS 08/13/19 08/19/19 rosuvastatin [Crestor] 40 mg PO HS 08/13/19 08/19/19 Allergies Allergy/AdvReac Type Severity Reaction Status Date / Time adhesive tape Allergy Unknown RASH Verified 08/19/19 11:08 clindamycin Allergy Unknown Diarrhea Verified 08/19/19 11:08 morphine Allergy Unknown Nausea and Verified 08/19/19 11:08 Vomiting nitrofurantoin Allergy Unknown Nausea and Verified 08/19/19 11:08 Vomiting Penicillins Allergy Unknown Rash Verified 08/19/19 11:08 Sulfa (Sulfonamide AdvReac Mild FINE RASH Verified 08/19/19 11:08 Antibiotics) Review of Systems Review of Systems: Narrative: CONSTITUTIONAL: Denies fever. EYES: Denies vision changes. CARDIOVASCULAR: Denies chest pain. GASTROINTESTINAL: Denies nausea and abdominal pain. MUSCULOSKELETAL: Reports right hip pain and chronic back pain. NEUROLOGIC: Reports confusion. All systems reviewed & are unremarkable except as noted in HPI and below PMFSH Past Medical History Medical History (Updated 08/25/19 @ 23:09 by Nicole Cortés MD) Anxiety Brain aneurysm CAD (coronary artery disease) Cataracts, bilateral Chronic pain Chronic, continuous use of opioids DDD (degenerative disc disease) Dementia with frontal lobe atrophy, short term memory loss Depression Diverticulitis Endometriosis Fibrocystic breast disease Fibromyalgia GERD (gastroesophageal reflux disease) History of angina History of heart attack 1994 Hyperlipidemia Kidney stone Liver disease Migraine MVP (mitral valve prolapse) Neuropathy Osteoarthritis Osteomyelitis Osteoporosis Peripheral neuropathy Pneumonia Seasonal allergies Seizure last one in Spinal cord stimulator status Thyroid nodule UTI (urinary tract infection) Surgical History Surgical History (Updated 08/25/19 @ 17:58 by Gay Hendrix) H/O breast biopsy bilateral H/O cervical spine surgery x2, 2006 & 2006 H/
--- NOTE | 2019-08-25 17:21 | ECG_ITS ---
Measurements Intervals [place] Rate: 97 P: 214 DE: 329 QRS: 30 QRSD: 90 T: 44 QT: 322 QTc: 409 Interpretive Statements SINUS RHYTHM FREQUENT ATRIAL PREMATURE COMPLEXES NONSPECIFIC ST-T WAVE ABNORMALITY- DIFFUSE LEADS BASELINE ARTIFACT- I, II, III, AVR, AVL,A VF, V2-V4 ABNORMAL ECG Electronically Signed On 08-25-2019 19:34:50 CDT by Zacarias Lucas D.O.
[2019-08-25] MEDS: SODIUM CHLORIDE 0.9% IV 1,000 ML 999 ML IV CONT (17:39)
[2019-08-25 18:01] LABS: Basophils Percent Auto 0.3 % (0.2-1.2); Eosinophils Absolute Auto 0.1 K/mm3 (0-0.3); Eosinophils Percent Auto 1.1 % (0-4.4); Hematocrit 22.4 % (37.0-47.0); Immature Granulocyte Absolute 0.03 K/mm3 (0.00-0.031); Immature Granulocyte Percent A 0.5 % (0-0.5); Lymphocytes Absolute Auto 1.09 K/mm3 (0.9-3.2); Lymphocytes Percent Auto 17.1 % (18.3-44.2); Mean Corpuscular HGB Conc 31.3 g/dl (32-36); Mean Corpuscular Hemoglobin 29.2 pg (26-34); Mean Corpuscular Volume 93.3 fl (80-100); Mean Platelet Volume 10.9 fl (7.4-10.4); Monocytes Absolute Auto 0.7 K/mm3 (0.1-0.6); Monocytes Percent Auto 11.2 % (2.6-8.5); Neutrophils Absolute Auto 4.4 K/mm3 (1.3-6.7); Neutrophils Percent Auto 69.8 % (45.5-73.1); Platelet Count Result 202 k/mm3 (150-375); Red Cell Distribution Width 12.7 % (11.5-14.5); White Blood Count 6.4 K/mm3 (4.5-10.0)
[2019-08-25 18:11] LABS: INR 1.1; Partial Thromboplastin Time 29.2 SECONDS (22.3-36.8); Prothrombin Time 13.7 Seconds (11.1-14.7)
[2019-08-25 18:13] LABS: Lactic Acid Reflex 0.8 mmol/L (0.7-2.1)
[2019-08-25 18:16] LABS: Blood Urea Nitrogen 17 mg/dL (7-17); Calcium 7.6 mg/dL (8.4-10.2); Carbon Dioxide 31 mmol/L (22-30); Chloride 96 mmol/L (98-107); Estimated CRCL calculation 60 ml/min; Estimated Glomerular Filt Rate > 60; Glucose 106 mg/dL (65-105); Potassium 3.2 mmol/L (3.4-5.0); Sodium 133 mmol/L (137-145)
[2019-08-25 18:29] LABS: CRP 20.8 mg/dL (<1.0)
[2019-08-25 18:35] LABS: Glucose Point of Care 100 (65-105)
[2019-08-25 18:45] LABS: Erythrocyte Sedimentation Rate > 140 mm/hr (0-20)
--- NOTE | 2019-08-25 18:47 | PC.NURSE ---
vanco ivpb stopped at this time per ed physician's verbal request
--- NOTE | 2019-08-25 20:19 | PC.NURSE ---
synovial fluid from rt knee hand carried to lab by yesi cuellar 4 x 4 drsg applied to puncture site per md request
[2019-08-25 20:50] LABS: Appearance Synovial Fluid Bloody (Clear); Color Synovial Fluid Red (Colorless); Source Synovial Fluid Synovial fluid
[2019-08-25 21:02] LABS: RBC Synovial Fluid 29734 /uL (0-0)
[2019-08-25 21:04] LABS: Neutrophils Synovial Fluid 100 % (0-25)
[2019-08-25 21:06] LABS: Crystals Synovial Fluid None Seen (None Seen)
[2019-08-25] MEDS: MORPHINE SULFATE 2 MG/ML INJ IV PUSH (21:27)
--- NOTE | 2019-08-25 22:04 | PC.NURSE ---
blood consent in chart, signed by pt
[2019-08-26 00:10] VITALS: BP 107/46; PULSE 69; RESP 16; TEMP 36.8; O2SAT 94
[2019-08-26] MEDS: SODIUM CHLORIDE 0.9% IV 1,000 ML 125 ML IV CONT ×3 (00:14→16:50)
[2019-08-26 04:35] LABS: Hematocrit 26.8 % (37.0-47.0); Hemoglobin 8.5 g/dL (12.0-15.0)
[2019-08-26 06:00] VITALS: BP 134/54; PULSE 63; RESP 20; TEMP 36.8; O2SAT 96
[2019-08-26 09:21] LABS: Hematocrit 27.4 % (37.0-47.0); Hemoglobin 8.8 g/dL (12.0-15.0)
--- NOTE | 2019-08-26 09:25 | PTEVAL ---
Physical Therapy Evaluation Potential for Rehabilitation: Treatment Plan: I evaluated Natalie Millan and recommend the outlined treatment plan:
--- NOTE | 2019-08-26 12:36 | PM.PNORT ---
Subjective Subjective Date/Time Seen: 08/26/19 12:36 PTIENT WAS ADMITTED WITH SUSPICION OF R KNEE INFECTION. SHE IS 1 WEEKS/P R TKA. SHE WAS NOT HAVING ANY SIGNIFICANT PAIN POSTOPERATIVELY. SHE FELL TWICE AND WAS SENT TO THE ED FOR CONCUSSION EVALUATION. SHE UNDERWENT ASPIRATION DUE TO APPARENT HEMATOMA AND REDNESS. TODAY SHE APPEARS FROM A CLINICAL POINT TO HAVE AN EXPECTED APPEARING R TKA FROM 1 WEEK POSTOP. DESPITE A NORMAL APPEARING KNEE SHE DOES HAVE A POSITIVE GRAM STAIN FROM ASPIRATION. THIS MAY BE A CONTAMINANT WELL. REGARDLESS WE WILL CONTINUE ABX AND FOLLOW HER CRP AND AWAIT CULTURE RESULTS BEFORE PROCEEDING WITH A POSSIBLE WASH OUT. Objective Data Vital Signs Vital Signs: Vital Signs - 24 hr 08/25/19 17:24 08/25/19 18:29 08/25/19 20:26 Temperature 37.3 C Pulse Rate 104 H 89 85 Respiratory Rate 18 14 14 Blood Pressure 147/49 H 130/55 L 118/45 L Pulse Oximetry 99 93 93 08/25/19 21:19 08/25/19 22:00 08/25/19 22:05 Temperature 36.2 C L Pulse Rate 85 85 73 Respiratory Rate 13 16 18 Blood Pressure 136/67 117/59 L 117/45 L Pulse Oximetry 95 97 96 08/25/19 22:45 08/25/19 23:38 08/25/19 23:45 Temperature 36.8 C 36.8 C 37.1 C Pulse Rate 78 78 73 Respiratory Rate 20 20 20 Blood Pressure 119/53 L 119/53 L 115/49 L Pulse Oximetry 94 94 93 08/26/19 00:10 08/26/19 06:00 Temperature 36.8 C 36.8 C Pulse Rate 69 63 Respiratory Rate 16 20 Blood Pressure 107/46 L 134/54 L Pulse Oximetry 94 96 Intake/Output Intake/Output: Intake & Output 08/23/19 08/24/19 08/25/19 08/26/19 23:59 23:59 23:59 23:59 Intake Total 1150 1286 Output Total 1100 Balance 1150 186 Meds/Results Medications: Active Medications Generic Name Dose Route Start Last Admin Trade Name Freq PRN Reason Stop Dose Admin Hydrocodone Bitart/Acetaminophen 2 tab 08/25/19 20:45 08/26/19 08:47 Hansen 5-325 Mg PO 2 tab Q4H PRN Administration Pain Rated 7-10 Sodium Chloride 1,000 mls @ 125 mls/hr 08/25/19 20:45 08/26/19 08:46 Normal Saline Iv IV CONT 125 mls/hr .Q8H COLLIN Administration Ondansetron HCl 4 mg 08/25/19 20:45 Zofran Inj IV PUSH Q4H PRN Nausea Radiology Results: ITS Impressions Head CT 08/25/19 19:35 IMPRESSION: 1. No acute intracranial abnormality. 2. Age related findings. Cervical Spine CT 08/25/19 20:12 IMPRESSION: 1. Surgical changes in the cervical spine without acute osseous abnormality. 2. Moderate cervical spondylosis. Chest X-Ray 08/25/19 20:18 IMPRESSION: 1. No acute cardiopulmonary abnormality. Hip/Pelvis X-Ray 08/25/19 20:22 IMPRESSION: 1. No acute osseous abnormality. Knee X-Ray 08/25/19 20:26 IMPRESSION: 1. Changes of recent total knee arthroplasty without evidence of acute abnormality. Labs Labs: Laboratory Results - last 24 hr 08/25/19 08/25/19 08/25/19 17:49 17:49 17:49 WBC 6.4 RBC 2.40 L Hgb 7.0 L D Hct 22.4 L MCV 93.3 MCH 29.2 MCHC 31.3 L RDW 12.7 Plt Count 202 D MPV 10.9 H Immature Gran % (Auto) 0.5 Neut % (Auto) 69.8 Lymph % (Auto) 17.1 L [place] % (Auto) 11.2 H Eos % (Auto) 1.1 Baso % (Auto) 0.3 Lymph # (Auto) 1.09 [place] # (Auto) 0.7 H Eos # (Auto) 0.1 Baso # (Auto) 0.0 Abs Immat Gran (auto) 0.03 Absolute Neuts (auto) 4.4 Absolute Nucleated RBC 0.0 Nucleated RBC % 0.0 ESR > 140 H PT 13.7 INR 1.1 APTT 29.2 Sodium 133 L Potassium 3.2 L Chloride 96 L Carbon Dioxide 31 H BUN 17 Creatinine 0.70 Estim Creat Clear Calc 60 Estimated GFR > 60 Glucose 106 H POC Capillary Glucose Lactic Acid Calcium 7.6 L C-Reactive Protein 20.8 H Synovial Source Synovial Color Synovial Appearance Synovial RBC Synovial Nuc Cells Synovial Neutrophils Synovial Crystals Blood Type Antibody Screen Crossmatch 08/25/19 08/25/1908/24
--- NOTE | 2019-08-26 14:14 | HP_ITS ---
DATE OF SERVICE: 08/26/2019 HISTORY OF PRESENT ILLNESS: This is a 68-year-old female who reported to the emergency department after she had fallen a few times and hit her head in the bathroom. She is recently postop approximately 1 week from right total knee arthroplasty. She was not complaining of any significant knee pain prior to her admission. She had an uneventful knee replacement without any complications. She denies any loss of consciousness. Does have some confusion per her 's input and she does not complain of any significant knee pain more than expected after knee replacement. She presented to the emergency department and she underwent evaluation by the emergency room physician. The emergency room physician thought that the knee looked suspicious for hemarthrosis versus infection. She had an aspiration, which showed some gram-positive cocci in the aspirate. She was then evaluated for a potential concussion and she was admitted for observation for a potential concussion and for potential infected right knee. She was started on vancomycin and sent to the med/surg floor. Currently, she does not have any significant knee pain, which we generally see after one week's postop and examination of the knee does not show any significant or alarming concern for infection from a typical 1-week postoperative knee. The patient feels appropriate. She answers questions appropriately and this appears to be no different than her preoperative mental status. She denies any other neck pain, any back pain, or any other extremity pain. PAST MEDICAL HISTORY: Anxiety, brain aneurysm, coronary artery disease, cataracts, chronic pain, chronic use of opioids, dementia, depression, diverticulitis, endometriosis, fibrocystic breast disease, fibromyalgia, GERD, angina, heart attack in 1994, hyperlipidemia, kidney stones, liver disease, migraine, mitral valve prolapse, neuropathy, osteoarthritis, osteomyelitis, osteoporosis, peripheral neuropathy, pneumonia, seasonal allergies, seizure disorder, spinal cord stimulator, thyroid nodule, urinary tract infection. SURGICAL HISTORY: Bilateral knee replacements, last one is the right knee 1-week ago, cataract surgery, lumpectomy, tonsillectomy, cervical spine surgery, D and C's, mastectomy, vascular surgery, bunionectomy, cardiac cath, coronary artery stent placement. SOCIAL HISTORY: She smokes half-pack cigarettes a day from former smoking, she currently does not smoke cigarettes. She takes some alcohol intake, is a social drinker. Does not have any history of any illicit drug abuse. PHYSICAL EXAMINATION: HEENT: Pupils are equal and reactive to light and accommodation. Extraocular moves are intact. LUNGS: Clear to auscultation. HEART: Regular rate and rhythm. ABDOMEN: Soft, nontender. Normoactive bowel sounds. EXTREMITIES: The right knee was examined. She has rufus intact. She has mild hematoma of the skin. She does not appear to have any cellulitis. She has no drainage to the wound. Alpha are all intact. She has an effusion, which appears to be hematoma and it is mild and expected for postoperative. She has no active drainage and no drainage is able to be expressed with palpation. She has minimal tenderness in the knee. She has minimal discomfort with active and passive range of motion. She is able to do a straight leg raise without any difficulty. The thigh is nontender. Calf is nontender. Popliteal fossa is nontender. The tib-fib is nontender. She is able to dorsi and plantar flex the right foot. She has dorsalis pedis pulse 2+, posterior tib pulse 2+. The left lower extremity examined. She has a well-healed incision scar. She has smooth range of motion of the knee without any pain. She has no effusion. She has no thigh tenderness. She has no tib-fib
[2019-08-26 14:18] VITALS: BP 128/50; PULSE 75; RESP 16; TEMP 36.6; O2SAT 97
[2019-08-26 15:02] VITALS: BMI 24.9
[2019-08-26 15:19] LABS: Hematocrit 27.5 % (37.0-47.0); Hemoglobin 8.9 g/dL (12.0-15.0)
[2019-08-26] MEDS: CELECOXIB 200 MG CAPSULE PO (16:50)
[2019-08-26] MEDS: MEMANTINE 5 MG TABLET PO (16:50)
--- NOTE | 2019-08-26 19:25 | PM.IMCN ---
Assessment and Plan Assessment and plan (1) Joint infection: Code(s): M00.9 - Pyogenic arthritis, unspecified Status: Acute Assessment and Plan: Per Dr. Merrill. Patient is on vancomycin. Blood cultures are pending. May consider infectious disease if needed. Pain management per Dr. Merrill. (2) Dementia: Code(s): F03.90 - Unspecified dementia without behavioral disturbance Status: Chronic Assessment and Plan: Patient is on Namenda and Aricept. (3) Anxiety: Code(s): F41.9 - Anxiety disorder, unspecified Status: Chronic Assessment and Plan: Continue Xanax. And Klonopin at HS. She also has Valium p.r.n.. May consider downsizing on some of the benzodiazepines. (4) Depression: Code(s): F32.9 - Major depressive disorder, single episode, unspecified Status: Chronic Assessment and Plan: Patient is on Cymbalta. (5) Anemia: Qualifiers: Anemia type: other cause Other causes of anemia: other cause, not classified Qualified Code(s): D64.89 - Other specified anemias Code(s): D64.9 - Anemia, unspecified Status: Acute Assessment and Plan: Patient is at baseline continue to monitor. [facility] Data of Consult Consult date: 08/26/19 Requesting Physician: Hector Merrill MD Primary Care Provider: Abdiel Butcher MD Consult Narrative Narrative: Natalie Millan is a 68 year old female who had a right total knee arthroplasty per Dr. Merrill on the of this month. The patient complained of having a fall on the that occurred the previous night. She lost her balance and fell in the bathroom. She hit the back of her head on the bathtub. She was confused. She was talking to her spouse about their son being deployed to [facility]. And their son has been home for at least 10 years now.Patient was admitted for suspicion of right knee infection. She underwent aspiration due to apparent hematoma and redness and had positive Gram stain from the aspiration. Patient was started on antibiotics and cultures are pending. The hospitalist group was consulted for medical management. Date of service 08/26/2019 Review of Systems Review of Systems: All systems reviewed & are unremarkable except as noted in HPI and below Constitutional: Constitutional: Reports as per HPI and Reports no additional constitutional complaints Eyes: Eyes: Reports as per HPI and Reports no additional eye complaints ENT: Reports system reviewed and no additional complaints, except as documented and Reports Normal hearing present Cardiovascular: Cardiovascular: Reports no additional cardiovascular complaints Respiratory: Respiratory: Reports no additional respiratory complaints and Reports no additional respiratory complaints Gastrointestinal: Gastrointestinal: Reports as per HPI and Reports no additional gastrointestinal complaints Musculoskeletal: Musculoskeletal: Reports no additional musculoskeletal complaints Integumentary/Breasts: Skin/Breast: Reports system reviewed and no additional complaints, except as docu and Reports as per HPI Neurologic: Reports system reviewed and no additional complaints, except as documented, Reports as per HPI and Reports Normal hearing present Psychiatric: Psychiatric: Reports no additional psychiatric complaints and Reports as per HPI Endocrine: Endocrine: Reports no additional endocrine complaints Hematologic/Lymphatic: Hematologic/Lymphatic: Reports no additional hematologic/lymphatic complaints Allergic/Immunologic: Allergic/Immunologic: Reports no additional allergic/immunologic complaints PMFSH Past Medical History Medical History (Updated 08/26/19 @ 19:36 by Cortney Marquez NP) Anxiety Brain aneurysm Status post clips CAD (coronary artery disease) Cataracts, bilateral Chronic pain Chronic, continuous use of opioids DDD (degenerative disc disease) Dementia with frontal lobe atrophy, short term m
[2019-08-26] MEDS: CLONAZEPAM 0.5 MG TAB 1 MG PO (21:05)
[2019-08-26] MEDS: ROSUVASTATIN 10 MG TABLET 40 MG PO (21:05)
[2019-08-26] MEDS: PANTOPRAZOLE 40 MG TABLET PO (21:05)
[2019-08-26] MEDS: DONEPEZIL HCL 10 MG TABLET PO (21:05)
[2019-08-26] MEDS: EZETIMIBE 10 MG TABLET PO (21:05)
[2019-08-26 22:00] VITALS: BP 145/54; PULSE 77; RESP 18; TEMP 36.6; O2SAT 94
[2019-08-27] MEDS: SODIUM CHLORIDE 0.9% IV 1,000 ML 125 ML IV CONT (02:03)
[2019-08-27 06:00] VITALS: BP 155/55; PULSE 73; RESP 18; TEMP 36.6; O2SAT 97
[2019-08-27 06:02] LABS: Basophils Percent Auto 0.1 % (0.2-1.2); Eosinophils Absolute Auto 0.1 K/mm3 (0-0.3); Eosinophils Percent Auto 1.5 % (0-4.4); Hematocrit 28.2 % (37.0-47.0); Immature Granulocyte Absolute 0.04 K/mm3 (0.00-0.031); Immature Granulocyte Percent A 0.6 % (0-0.5); Lymphocytes Absolute Auto 1.02 K/mm3 (0.9-3.2); Lymphocytes Percent Auto 14.2 % (18.3-44.2); Mean Corpuscular HGB Conc 31.9 g/dl (32-36); Mean Corpuscular Hemoglobin 29.3 pg (26-34); Mean Corpuscular Volume 91.9 fl (80-100); Mean Platelet Volume 10.5 fl (7.4-10.4); Monocytes Absolute Auto 0.5 K/mm3 (0.1-0.6); Monocytes Percent Auto 7.4 % (2.6-8.5); Neutrophils Absolute Auto 5.5 K/mm3 (1.3-6.7); Neutrophils Percent Auto 76.2 % (45.5-73.1); Platelet Count Result 263 k/mm3 (150-375); Red Blood Count 3.07 M/mm3 (4.2-5.4); Red Cell Distribution Width 13.3 % (11.5-14.5); White Blood Count 7.2 K/mm3 (4.5-10.0)
[2019-08-27 06:15] LABS: Blood Urea Nitrogen 8 mg/dL (7-17); Calcium 8.1 mg/dL (8.4-10.2); Carbon Dioxide 30 mmol/L (22-30); Chloride 105 mmol/L (98-107); Estimated CRCL calculation 67 ml/min; Estimated Glomerular Filt Rate > 60; Glucose 97 mg/dL (65-105); Potassium 2.7 mmol/L (3.4-5.0); Sodium 138 mmol/L (137-145)
[2019-08-27] MEDS: POTASSIUM CHLORIDE 20 MEQ TABLET 40 MEQ PO (09:08)
[2019-08-27] MEDS: POTASSIUM CHLORIDE 20 MEQ TABLET PO (09:08)
[2019-08-27] MEDS: CELECOXIB 200 MG CAPSULE PO ×2 (09:09→16:52)
[2019-08-27] MEDS: PANTOPRAZOLE 40 MG TABLET PO ×2 (09:09→21:23)
[2019-08-27] MEDS: DULOXETINE 60 MG CAPSULE.DR PO (09:09)
[2019-08-27] MEDS: MEMANTINE 5 MG TABLET PO ×2 (09:09→16:52)
[2019-08-27] MEDS: MAGNESIUM OXIDE 400 MG TABLET PO (10:23)
--- NOTE | 2019-08-27 11:04 | PM.IMPN ---
Progress Note: A&P Assessment and Plan (1) Joint infection: Code(s): M00.9 - Pyogenic arthritis, unspecified Status: Acute Assessment and Plan: Dr. Merrill is the admitting physician. Pain management per Dr. Merrill. Discharge planning per Dr. Merrill. DVT Prophylaxis per Dr. Merrill. The patient was started on IV Vancomycin. Gram stain from right knee aspiration showed Gram-positive cocci. Pending right knee aspiration culture and blood cultures. May consider infectious disease if needed. The patient is otherwise feeling little better today. Will continue monitoring patient's symptoms at this time. (2) Anemia: Qualifiers: Anemia type: other cause Other causes of anemia: other cause, not classified Qualified Code(s): D64.89 - Other specified anemias Code(s): D64.9 - Anemia, unspecified Status: Acute Assessment and Plan: The patient's hemoglobin on arrival was 7.0 and hematocrit was 22.4. She was given 1 unit of PRBCs with improvement of her H&H. Today her hemoglobin was 9 and hematocrit was 28.2%. She has no acute signs of blood loss at this time just healing ecchymosis to her right leg from fall. Continue trending H&H and transfuse as needed. (3) Hypokalemia: Code(s): E87.6 - Hypokalemia Status: Acute Assessment and Plan: The patient's potassium this morning was 2.7 which is severely low. She was given 60 mg p.o. of potassium as well as 400 mg p.o. magnesium. Will recheck her magnesium and potassium 1400 today and replenish as needed. (4) Dementia: Code(s): F03.90 - Unspecified dementia without behavioral disturbance Status: Chronic Assessment and Plan: Patient is on Namenda and Aricept. states she has been more confused lately as well as agitated. Could be from underlying infection versus worsening dementia. (5) Anxiety: Code(s): F41.9 - Anxiety disorder, unspecified Status: Chronic Assessment and Plan: Continue Xanax and Klonopin at HS. She also has Valium p.r.n.. May consider downsizing on some of the benzodiazepines. (6) Depression: Code(s): F32.9 - Major depressive disorder, single episode, unspecified Status: Chronic Assessment and Plan: Patient is on Cymbalta. Patient states she does feel sad that her mother is not around any more to help her after her surgery. Her mother in November of 2018. I informed the patient has been that she may need some type of social media director, counselor or psychiatrist to help her through this time and possible further treatment of her anxiety and depression. Time Spent With Patient Time with patient: 25 - 35 minutes Subjective Date/time seen: 08/27/19 11:04 Interval history: Date of service 08/27/2019: The patient reports feeling slightly confused today but her states it is improved from yesterday when she came into the hospital. She has chronic back pain that she is complaining of since she is laying on her back as well as her right knee swelling and pain. The patient denies any chest pain, shortness of breath, cough, nausea, vomiting, diarrhea, constipation, lightheadedness, dizziness, syncope, headaches, vision changes, or any other symptoms at this time. The patient has been states she has been more confused the last few days and agitated at times. He is very concerned with her mom few falls at home and staying in their small house. He would really like the patient to go to a skilled rehab facility for further therapy before returning back home. Review of Systems Review of Systems: All systems reviewed & are unremarkable except as noted in HPI and be
--- NOTE | 2019-08-27 11:42 | PM.PNORT ---
Progress Note: A&P Assessment and Plan (1) Total knee replacement status: Qualifiers: Laterality: right Qualified Code(s): Z96.651 - Presence of right artificial knee joint Code(s): Z96.659 - Presence of unspecified artificial knee joint Status: Acute Assessment and Plan: Right knee overall continues to appear stable. Initial culture results negative aerobic and anaerobic. Continue with PT/OT. Continue IV antibiotics. Continue to watch culture results. No signs of active infection at this time. Needs potassium replacement. Subjective Subjective Date/Time Seen: 08/27/19 11:42 Patient complaint back pain. States her right knee has minimal pain. She would like to return home as soon as possible. Exam Const: General: healthy appearing; No in distress or confusion Orientation/consciousness: patient oriented x3 and No confusion HENMT: Head: normal to inspection, normocephalic and atraumatic Eyes: Conjunctivae: conjunctivae normal Sclera: sclerae normal Resp: Effort & Inspection: normal respiratory effort and no audible wheezes Neuro: General: patient oriented x3 and No confusion Extrem: Right lower extremity: knee (Knee incision clean dry and intact. Dressing in place. No active drainage) Details: other (Mild erythema threaded surrounding the incision consistent with postop, mild swelling, minimally tender to palpation. Nontender to flexion and extension passive and active.) Psych: Affect: normal affect Objective Data Vital Signs Vital Signs: Vital Signs - 24 hr 08/26/19 14:18 08/26/19 22:00 08/27/19 06:00 Temperature 97.8 F 97.9 F 97.8 F Pulse Rate 75 77 73 Respiratory Rate 16 18 18 Blood Pressure 128/50 L 145/54 H 155/55 H Pulse Oximetry 97 94 97 Intake/Output Intake/Output: Intake & Output 08/24/19 08/25/19 08/26/19 08/27/19 23:59 23:59 23:59 23:59 Intake Total 1150 3626 1380 Output Total 2600 2100 Balance 1150 1026 -720 Meds/Results Medications: Active Medications Generic Name Dose Route Start Last Admin Trade Name Freq PRN Reason Stop Dose Admin Acetaminophen 1,000 mg 08/26/19 12:44 Tylenol Tablet PO Q6H PRN Mild Pain (1-3) Alprazolam 1 mg 08/26/19 13:01 Xanax PO TID PRN Agitation Celecoxib 200 mg 08/26/19 17:00 08/27/19 09:09 Celebrex PO 200 mg BIDWM COLLIN Administration Clonazepam 1 mg 08/26/19 21:00 08/26/19 21:05 Klonopin Tablet PO 1 mg HS COLLIN Administration Diazepam 5 mg 08/26/19 12:44 Valium Po PO Q8H PRN Spasms Diphenhydramine HCl 25 mg 08/26/19 12:44 Benadryl Inj IV PUSH Q6H PRN Itching Donepezil HCl 10 mg 08/26/19 21:00 08/26/19 21:05 Aricept PO 10 mg HS COLLIN Administration Duloxetine HCl 60 mg 08/27/19 09:00 08/27/19 09:09 Cymbalta PO 60 mg DAILY COLLIN Administration Ezetimibe 10 mg 08/26/19 21:00 08/26/19 21:05 Zetia PO 10 mg HS COLLIN Administration Vancomycin HCl 1,000 mg in 250 mls @ 250 mls/hr 08/27/19 12:00 Vancomycin 1,000 Mg/D5w 250 Ml IVPB Q18H COLLIN Magnesium Oxide 400 mg 08/27/19 09:00 08/27/19 10:23 Mag-Ox PO 400 mg QAM COLLIN Administration Memantine 5 mg 08/26/19 17:00 08/27/19 09:09 Namenda PO 5 mg BID COLLIN Administration Naloxone HCl 0.1 mg 08/26/19 12:44 Narcan IV PUSH Q2M PRN Opiate Reversal Ondansetron HCl 4 mg 08/25/19 20:45 Zofran Inj IV PUSH Q4H PRN Nausea Oxycodone HCl 15 mg 08/27/19 11:32 Roxicodone Ir Tablet PO Q6H PRN Pain Rated 7-10 Pantoprazole Sodium 40 mg 08/26/19 21:00 08/27/19 09:09 Protonix PO 40 mg Q12HR COLLIN Administration Rosuvastatin Calcium 40 mg 08/26/19 21:00 08/26/19 21:05 Crestor PO 40 mg HS COLLIN Administration Radiology Results: ITS Impressions Head CT 08/25/19 19:35 IMPRESSION: 1. No acute intracranial abnormality. 2. Age related findings. C
[2019-08-27] MEDS: GABAPENTIN 400 MG CAPSULE 800 MG PO ×3 (12:48→21:23)
[2019-08-27 13:15] LABS: Glucose Synovial Fluid 51 mg/dL
[2019-08-27 13:17] LABS: Add Urine Microscopic? YES; Appearance Urine Clear (Clear); Bacteria Urine Trace /hpf; Bilirubin Urine Negative (Negative); Blood Urine 1+ (Negative); Color Urine Yellow (Yellow); Glucose Urine UA Negative (Negative); Ketones Urine Trace mg/dL (Negative); Leukocyte Esterase Ur Negative LEU/UL (Negative); Mucus Urine Few /lpf; Nitrate Urine Negative (Negative); Protein Urine Negative (Negative); Specific Grav Ur 1.013 (1.001-1.035); Squamous Epithelial Cell Urine Moderate /hpf (Few); WBC Urine 0-3 /hpf
[2019-08-27] MEDS: DIAZEPAM 5 MG TABLET PO (15:19)
[2019-08-27 15:34] LABS: Magnesium 1.7 mg/dL (1.6-2.3); Potassium 3.3 mmol/L (3.4-5.0)
[2019-08-27] MEDS: ROSUVASTATIN 10 MG TABLET 40 MG PO (21:22)
[2019-08-27] MEDS: EZETIMIBE 10 MG TABLET PO (21:23)
[2019-08-27] MEDS: DONEPEZIL HCL 10 MG TABLET PO (21:23)
[2019-08-27] MEDS: CLONAZEPAM 0.5 MG TAB 1 MG PO (21:23)
[2019-08-27 22:00] VITALS: BP 152/60; PULSE 87; RESP 18; TEMP 36.4; O2SAT 97
[2019-08-28] MEDS: DIAZEPAM 5 MG TABLET PO (02:17)
[2019-08-28 06:00] VITALS: BP 139/61; PULSE 80; RESP 18; TEMP 36.8; O2SAT 96
[2019-08-28 06:19] LABS: Basophils Percent Auto 0.4 % (0.2-1.2); Eosinophils Absolute Auto 0.2 K/mm3 (0-0.3); Eosinophils Percent Auto 2.3 % (0-4.4); Hematocrit 29.7 % (37.0-47.0); Hemoglobin 9.2 g/dL (12.0-15.0); Immature Granulocyte Absolute 0.05 K/mm3 (0.00-0.031); Immature Granulocyte Percent A 0.7 % (0-0.5); Lymphocytes Absolute Auto 1.45 K/mm3 (0.9-3.2); Lymphocytes Percent Auto 21.1 % (18.3-44.2); Mean Corpuscular Hemoglobin 29.4 pg (26-34); Mean Corpuscular Volume 94.9 fl (80-100); Mean Platelet Volume 9.9 fl (7.4-10.4); Monocytes Absolute Auto 0.6 K/mm3 (0.1-0.6); Monocytes Percent Auto 8.9 % (2.6-8.5); Neutrophils Absolute Auto 4.6 K/mm3 (1.3-6.7); Neutrophils Percent Auto 66.6 % (45.5-73.1); Platelet Count Result 327 k/mm3 (150-375); Red Blood Count 3.13 M/mm3 (4.2-5.4); Red Cell Distribution Width 13.6 % (11.5-14.5); White Blood Count 6.9 K/mm3 (4.5-10.0)
[2019-08-28 06:30] LABS: Blood Urea Nitrogen 9 mg/dL (7-17); Calcium 8.5 mg/dL (8.4-10.2); Carbon Dioxide 32 mmol/L (22-30); Chloride 105 mmol/L (98-107); Estimated CRCL calculation 57 ml/min; Estimated Glomerular Filt Rate > 60; Glucose 104 mg/dL (65-105); Magnesium 1.7 mg/dL (1.6-2.3); Potassium 3.4 mmol/L (3.4-5.0); Sodium 138 mmol/L (137-145)
--- NOTE | 2019-08-28 09:01 | PM.IMPN ---
Progress Note: A&P Assessment and Plan (1) Joint infection: Code(s): M00.9 - Pyogenic arthritis, unspecified Status: Acute Assessment and Plan: Dr. Merrill is the admitting physician. Pain management per Dr. Merrill. Discharge planning per Dr. Merrill. DVT Prophylaxis per Dr. Merrill. The patient was started on IV Vancomycin. Gram stain from right knee aspiration showed Gram-positive cocci. Pending right knee aspiration Aerobic Culture showing no growth and Anaerobic culture showing moderate WBCs. Blood cultures negative to date. May consider infectious disease if needed. The patient is otherwise feeling little better today. Will continue monitoring patient's symptoms at this time. Continue PT/OT. (2) Anemia: Qualifiers: Anemia type: other cause Other causes of anemia: other cause, not classified Qualified Code(s): D64.89 - Other specified anemias Code(s): D64.9 - Anemia, unspecified Status: Acute Assessment and Plan: The patient's hemoglobin on arrival was 7.0 and hematocrit was 22.4. She was given 1 unit of PRBCs with improvement of her H&H. Today her hemoglobin was 9.2 and hematocrit was 29.7%. She has no acute signs of blood loss at this time just healing ecchymosis to her right leg from fall. Continue trending H&H and transfuse as needed. (3) Hypokalemia: Code(s): E87.6 - Hypokalemia Status: Acute Assessment and Plan: The patient's potassium this morning was 3.4 which is low normal. She was given 40 mg p.o. of potassium as well as 400 mg p.o. magnesium BID. Will recheck her magnesium and potassium in the morning and replenish if needed. (4) Dementia: Code(s): F03.90 - Unspecified dementia without behavioral disturbance Status: Chronic Assessment and Plan: Patient is on Namenda and Aricept. states she has been more confused lately as well as agitated. Could be from underlying infection versus worsening dementia. (5) Anxiety: Code(s): F41.9 - Anxiety disorder, unspecified Status: Chronic Assessment and Plan: Continue Xanax and Klonopin at HS. She also has Valium p.r.n.. May consider downsizing on some of the benzodiazepines. (6) Depression: Code(s): F32.9 - Major depressive disorder, single episode, unspecified Status: Chronic Assessment and Plan: Patient is on Cymbalta. Patient states she does feel sad that her mother is not around any more to help her after her surgery. Her mother in November of 2018. I informed the patient has been that she may need some type of socially responsible investment adviser, counselor or psychiatrist to help her through this time and possible further treatment of her anxiety and depression. Time Spent With Patient Time with patient: 25 - 35 minutes Subjective Date/time seen: 08/28/19 09:01 Interval history: Date of service 08/28/2019: The patient reports feeling better today. She is only complaining of her chronic back pain rated greater than 10 on the pain scale. She has been adjusting her pain stimulator in her back to see if this will help. She states her will also bring and her topical [place] to see if it will help. She denies much right knee pain at all. The patient denies any chest pain, shortness of breath, cough, nausea, vomiting, diarrhea, constipation, lightheadedness, dizziness, syncope, headaches, vision changes, or any other symptoms at this time. Review of Systems Review of Systems: All systems reviewed & are unremarkable except as noted in HPI and below Exam Narrative: Exam Narrative: General: 68-year-old woman laying flat in bed with the head elevate
[2019-08-28] MEDS: CELECOXIB 200 MG CAPSULE PO (09:30)
[2019-08-28] MEDS: POTASSIUM CHLORIDE 20 MEQ TABLET 40 MEQ PO (09:30)
[2019-08-28] MEDS: GABAPENTIN 400 MG CAPSULE 800 MG PO ×2 (09:30→12:12)
[2019-08-28] MEDS: DULOXETINE 60 MG CAPSULE.DR PO (09:30)
[2019-08-28] MEDS: MEMANTINE 5 MG TABLET PO (09:30)
[2019-08-28] MEDS: MAGNESIUM OXIDE 400 MG TABLET PO (09:30)
[2019-08-28] MEDS: PANTOPRAZOLE 40 MG TABLET PO (09:30)
--- NOTE | 2019-08-28 10:53 | PM.PNORT ---
Progress Note: A&P Assessment and Plan (1) Total knee replacement status: Qualifiers: Laterality: right Qualified Code(s): Z96.651 - Presence of right artificial knee joint Code(s): Z96.659 - Presence of unspecified artificial knee joint Status: Acute Assessment and Plan: Right knee overall continues to appear stable. Preliminary culture results remain negative aerobic and anaerobic. Continue with PT/OT. patient only able to ambulate 25 ft. Continue IV antibiotics. Continue to watch culture results. No signs of active infection at this time. Potassium improved with replacement yesterday. May require placement due to strength and mobility issues. (2) 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: Code(s): M53.86 - Other specified dorsopathies, lumbar region Status: Acute Assessment and Plan: history of previous sciatica. Now with exacerbation with right sided radiculopathy. Reviewed pain management and muscle relaxants. Continue with therapy. Subjective Subjective Date/Time Seen: 08/28/19 10:53 Patient reports low back pain radiating down the right leg. Has had a history of sciatica. Right knee pain mildly improved. Ambulated 25 ft with therapy. Exam Const: General: healthy appearing; No in distress or confusion Orientation/consciousness: patient oriented x3 and No confusion HENMT: Head: normal to inspection, normocephalic and atraumatic Eyes: Conjunctivae: conjunctivae normal Sclera: sclerae normal Resp: Effort & Inspection: normal respiratory effort and no audible wheezes Neuro: General: patient oriented x3 and No confusion Extrem: Right lower extremity: knee (Knee incision clean dry and intact. Dressing in place. No active drainage) Details: other (Mild erythema threaded surrounding the incision consistent with postop, mild swelling, minimally tender to palpation. Nontender to flexion and extension passive and active.) Psych: Affect: normal affect Objective Data Vital Signs Vital Signs: Vital Signs - 24 hr 08/27/19 22:00 08/28/19 06:00 Temperature 97.6 F 98.2 F Pulse Rate 87 80 Respiratory Rate 18 18 Blood Pressure 152/60 H 139/61 Pulse Oximetry 97 96 Intake/Output Intake/Output: Intake & Output 08/25/19 08/26/19 08/27/19 08/28/19 23:59 23:59 23:59 23:59 Intake Total 1150 3626 3860 650 Output Total 2600 2700 700 Balance 1150 1026 1160 -50 Meds/Results Medications: Active Medications Generic Name Dose Route Start Last Admin Trade Name Johnq PRN Reason Stop Dose Admin Acetaminophen 1,000 mg 08/26/19 12:44 Tylenol Tablet PO Q6H PRN Mild Pain (1-3) Alprazolam 1 mg 08/26/19 13:01 Xanax PO TID PRN Agitation Celecoxib 200 mg 08/26/19 17:00 08/28/19 09:30 Celebrex PO 200 mg BIDWM COLLIN Administration Clonazepam 1 mg 08/26/19 21:00 08/27/19 21:23 Klonopin Tablet PO 1 mg HS COLLIN Administration Diazepam 5 mg 08/26/19 12:44 08/28/19 02:17 Valium Po PO 5 mg Q8H PRN Administration Spasms Diphenhydramine HCl 25 mg 08/26/19 12:44 Benadryl Inj IV PUSH Q6H PRN Itching Donepezil HCl 10 mg 08/26/19 21:00 08/27/19 21:23 Aricept PO 10 mg HS COLLIN Administration Duloxetine HCl 60 mg 08/27/19 09:00 08/28/19 09:30 Cymbalta PO 60 mg DAILY COLLIN Administration Ezetimibe 10 mg 08/26/19 21:00 08/27/19 21:23 Zetia PO 10 mg HS COLLIN Administration Gabapentin 800 mg 08/27/19 12:00 08/28/19 09:30 Neurontin PO 800 mg 0800,1200,1600,2100 COLLIN Administration Vancomycin HCl 1,000 mg in 250 mls @ 250 mls/hr 08/27/19 12:00 08/28/19 07:52 Vancomycin 1,000 Mg/D5w 250 Ml IVPB Infused Q18H COLLIN Infusion Magnesium Oxide 400 mg 08/28/19 09:00 08/28/19 09:30 Mag-Ox PO 400 mg BID COLLIN Administration Memantine 5 mg 08/26/19 17:00 08/28/19 09:30 Namenda PO 5 mg BID COLLIN Administration
--- NOTE | 2019-09-29 13:28 | PM.DS ---
DS: Diagnosis Admitting Diagnosis Admitting Diagnosis: HEMARTHROSIS RIGHT KNEE DS: Summary Time Spent with Patient Time attestation: Total time spent providing and/or coordinating discharge services: Discharge Plan Discharge Attending physician on discharge: Hector Merrill Consulting providers: Nicola Euceda ; Joana Cano ; Cortney Marquez ; Zacarias Lucas ; Jason Roland ; Hector Merrill ; Roberto Faust Discharging Clinician: Hector Merrill Anticipated Discharge Date/Time: 08/28/19 13:00 Patient Disposition: SNF Activity: may shower, as tolerated and follow weight bearing status Diet: heart healthy Wound Care Instructions: other - see discharge instructions Discharge Instructions: Dr. Merrill Change dressing day of discharge. [place] to be removed 14 days post-op on 09/02/2019. No further dressing needed. Call the office if any questions or concerns. Joana Cano PA-C Hospitalist You were admitted into the hospital after sustaining multiple falls at home after your recent knee surgery. On arrival your blood counts were found to be low any required 1 unit of blood to be transfused. Your blood counts have been much more stable since then and we will recheck these labs in 1 week. Your potassium and magnesium had also been low which we replenished. We will recheck these labs in 1 week. You will be prescribed a narcotic pain medication as needed for your pain. - You should not drive while on this medication because this medication is sedating. - You should not drinking alcohol or take NSAIDS on this medication. - These medications can cause constipation. Make sure you are having regular bowel movements or you may need to take a stool softener or Miralax daily for prevention. I do not recommend you taking your benzodiazepines (clonazepam and alprazolam) together or with your narcotic pain medications (oxycodone). This can suppress your respiratory drive and cause confusion, weakness and falls. Follow up with your Primary Care Provider within 1 week of discharge to further evaluate you on your recovery. Follow up with Dr. Merrill orthopedic surgeon as stated. Return to the ER if you have any new or worsening symptoms of fall, head trauma, confusion, weakness, chest pain, shortness of breath, fever, chills, abdominal pain, vomiting, diarrhea or any other concerning symptoms. Good luck with your recovery! Patient Instructions: Pain Management (DC), Precautions after Total Joint Replacement Surgery (DC), Fall Prevention (DC), Knee Replacement (DC) Stand Alone Forms: General Discharge Information Follow-up/Referrals: Hector Merrill MD [Physician] - 09/11/19 9:15 am (Dr Merrill, [facility] office, [phone]) Abdiel Butcher MD [Primary Care Provider] - 1 Week Discharge Medications: New doxycycline monohydrate 100 mg capsule 100 mg PO BID Qty: 20 RF: 0 alprazolam 1 mg Tablet 1 mg PO TID PRN (Reason: Agitation) Qty: 10 RF: 0 clonazepam [Klonopin] 1 mg Tablet 1 mg PO HS Qty: 10 RF: 0 Continued donepezil [Aricept] 10 mg Tablet 10 mg PO HS RF: 0 fexofenadine [Swapna Allergy] 180 mg Tablet 180 mg PO DAILY RF: 0 gabapentin 800 mg Tablet 800 mg PO QID RF: 0 [id number]-[id number]-caff [Ascomp with Codeine] 26-48-876-40 mg Capsule 1 cap PO DAILY PRN (Reason: MIGRAINE) RF: 0 pantoprazole 40 mg Tablet,Delayed Release (Dr/Ec) 40 mg PO BID RF: 0 nitroglycerin [Nitrostat] 0.4 mg Tablet, Sublingual 0.4 mg SUBLINGUAL ONCE PRN (Reason: Chest Pain) RF: 0 ezetimibe [Zetia] 10 mg Tablet 10 mg PO HS RF: 0 rosuvastatin [Crestor] 40 mg Tablet 40 mg PO HS RF: 0 memantine 5 mg Tablet 5 mg PO BID RF: 0 duloxetine [Cymbalta] 60 mg Capsule,Delayed Release(Dr/Ec) 60 mg PO DAILY RF: 0 Praluent Pen 75 mg/mL P
== END 2019-08-28 14:40 | DRG 921 ==
LOC: ANHED 17:32 → ANH3MEDSUR 21:27
PROVIDERS: Physician Assistant; Admitting Provider Orthopaedic Surgery; Emergency Provider Emergency Medicine; PCP Family Medicine Adolescent Medicine; Visit Provider Orthopaedic Surgery
DX: M96.840 Postprocedural hematoma of a musculoskeletal structure following a musculoskeletal system procedure (principal); W19.XXXA Unspecified fall, initial encounter; Z91.81 History of falling; F41.8 Other specified anxiety disorders; Z95.5 Presence of coronary angioplasty implant and graft; I25.10 Atherosclerotic heart disease of native coronary artery without angina pectoris; Z98.49 Cataract extraction status, unspecified eye; G89.29 Other chronic pain; Z79.891 Long term (current) use of opiate analgesic; F03.90 Unspecified dementia, unspecified severity, without behavioral disturbance, psychotic disturbance, mood disturbance, and anxiety; N60.19 Diffuse cystic mastopathy of unspecified breast; K21.9 Gastro-esophageal reflux disease without esophagitis; M79.7 Fibromyalgia; I25.2 Old myocardial infarction; E78.5 Hyperlipidemia, unspecified; Z87.442 Personal history of urinary calculi; I34.1 Nonrheumatic mitral (valve) prolapse; G62.9 Polyneuropathy, unspecified; M19.90 Unspecified osteoarthritis, unspecified site; M81.0 Age-related osteoporosis without current pathological fracture; Z96.82 Presence of neurostimulator; Z87.891 Personal history of nicotine dependence; G40.909 Epilepsy, unspecified, not intractable, without status epilepticus; G31.89 Other specified degenerative diseases of nervous system; R41.3 Other amnesia; D64.9 Anemia, unspecified; E87.6 Hypokalemia; Z96.651 Presence of right artificial knee joint; M54.9 Dorsalgia, unspecified; M54.31 Sciatica, right side
CPT/HCPCS: 36415; 36430; 70450; 71046; 72125; 73502; 73562; 80048; 81001; 82945; 82948; 83605; 83735; 84132; 85014; 85018; 85025; 85610; 85652; 85730; 86140; 86850; 86900; 86901; 86923; 87040; 87070; 87075; 87205; 88305; 88311; 89051; 89060; 93005; 96361; 96365; 96366; 96367; 96375; 97110; 97116; 97161; 97165; 97530; 97535; 99285; A9270; G0378; J0131; J2270; J3370; J7030; P9016

== ENCOUNTER 2019-10-08 16:00 | Outpatient (CLI) | payer MEDICARE, SELFPAY ==
--- NOTE | ~2019-10-08 | US_ITS ---
EXAMINATION: US venous doppler LE RT EXAM DATE: 10/08/2019 16:30 INDICATION: Right calf pain. TECHNIQUE: Multiple grayscale, color flow and Doppler images of the right lower extremity deep venous system were obtained and reviewed. There is no prior study for comparison. FINDINGS: The right common femoral, femoral and profunda veins demonstrate normal color flow, respira tory variation, augmentation and compressibility. Compressibility, color flow confirmed within the r ight popliteal, posterior tibial, peroneal, and greater saphenous veins. IMPRESSION: 1. No right lower extremity deep venous thrombosis. Reviewed, dictated and finalized at location A.
== END 2019-10-08 16:01 | disposition home or self-care (01) ==
PROVIDERS: PCP Family Medicine Adolescent Medicine; Visit Provider Orthopaedic Surgery
DX: M79.661 Pain in right lower leg (principal)
CPT/HCPCS: 93971

== ENCOUNTER → 2020-03-30 11:58 | Outpatient (CLI) | payer MEDICARE, SELFPAY ==
--- NOTE | ~2020-03-30 | XR_ITS ---
EXAMINATION: XR thoracic spine 3V DATE: 03/30/2020 12:25 INDICATION: Upper back pain after fall TECHNIQUE: AP, lateral and lateral swimmer's views of the thoracic spine were obtained. COMPARISON: None. FINDINGS: The vertebral body heights and alignment are normal. There is mild loss of intervertebral d isc space height at multiple levels throughout the thoracic spine. Changes of anterior fusion are not ed at the cervicothoracic junction. Neurostimulator leads end in the central spinal canal in the midt horacic spine. Median sternotomy wires and mediastinal surgical clips are seen, likely from prior cor onary artery bypass grafting. IMPRESSION: 1. Mild thoracic spondylosis without acute findings or significant interval change. Reviewed, dictated and finalized at location A. IMPRESSION: 1. Mild thoracic spondylosis without acute findings or significant interval shantel nge.
== END ==
PROVIDERS: PCP Family Medicine Adolescent Medicine; Visit Provider Family Medicine Adolescent Medicine
DX: M47.894 Other spondylosis, thoracic region (principal)
CPT/HCPCS: 72072

== ENCOUNTER 2020-08-21 16:03 | Observation (INO) | payer MEDICARE, SELFPAY ==
[2020-08-21] VITALS (15 sets, daily range): BP systolic 98–143; BP diastolic 46–86; PULSE 49–67; RESP 13–60; TEMP 36.4–37.4; O2SAT 88–100; BMI 24.5
--- NOTE | ~2020-08-21 | XR_ITS ---
XR chest 2V 08/21/2020 17:24 Indication: Hypoxia. Chest pain. Procedure: AP and lateral views of the chest Comparison: Comparison to multiple prior studies sequentially, with oldest reviewed study dated 11/05. Findings: Heart size normal. Status post median sternotomy for CABG. Neurostimulator leads overlie th e mid thoracic spine. No focal air space disease, pulmonary edema, pleural effusion or suspected pneu mothorax. The lungs are hyperinflated which is consistent with, but not diagnostic of chronic obstruc tive pulmonary disease. Impression: 1: No acute cardiopulmonary disease. Reviewed, dictated and finalized at location A. [employer] Impression: 1: No acute cardiopulmonary disease.
--- NOTE | 2020-08-21 16:49 | ED.GENADULT ---
HPI - General Adult General Chief complaint: Unspecified Stated complaint: DRY MOUTH/DIFFICULTY SWALLOWING Time Seen by Provider: 08/21/20 16:22 Source: patient Mode of arrival: EMS Limitations: no limitations History of Present Illness HPI narrative: This is a 69 year old female that presents to the ER for dry mouth. Reports she has had some trouble with dry mouth over the last week. Reports she was started on Morphine for her chronic pain a couple of days ago and her dry mouth has worsened. Reports she has not been drinking much water. Denies fever, chest pain, shortness of breath, nausea or vomiting. Related Data Home Medications Medication Instructions Recorded Confirmed Praluent Pen 75 mg SUBCUT [id number] 08/13/19 07/23/20 [id number]-jffdnbnagb-BAA-caff 1 cap PO DAILY PRN 08/13/19 07/23/20 [Ascomp with Codeine] donepezil [Aricept] 10 mg PO HS 08/13/19 07/23/20 duloxetine [Cymbalta] 60 mg PO DAILY 08/13/19 07/23/20 ezetimibe [Zetia] 10 mg PO HS 08/13/19 07/23/20 fexofenadine [Swapna Allergy] 180 mg PO DAILY 08/13/19 07/23/20 gabapentin 800 mg PO QID 08/13/19 07/23/20 memantine 5 mg PO BID 08/13/19 07/23/20 nitroglycerin [Nitrostat] 0.4 mg SUBLINGUAL ONCE PRN 08/13/19 07/23/20 pantoprazole 40 mg PO BID 08/13/19 07/23/20 rosuvastatin [Crestor] 40 mg PO HS 08/13/19 07/23/20 aspirin 650 mg PO DAILY 08/26/19 07/23/20 Allergies Allergy/AdvReac Type Severity Reaction Status Date / Time adhesive tape Allergy Unknown RASH Verified 08/21/20 16:07 clindamycin Allergy Unknown Diarrhea Verified 08/21/20 16:07 nitrofurantoin Allergy Unknown Nausea and Verified 08/21/20 16:07 Vomiting Penicillins Allergy Unknown Rash Verified 08/21/20 16:07 Sulfa (Sulfonamide AdvReac Mild FINE RASH Verified 08/21/20 16:07 Antibiotics) Review of Systems Review of Systems: Narrative: CONSTITUTIONAL: Denies fever CARDIOVASCULAR: Denies chest pain RESPIRATORY: Denies dyspnea. GASTROINTESTINAL: Denies nausea, vomiting All systems reviewed & are unremarkable except as noted in HPI and below PMFSH Past Medical History Medical History (Updated 08/21/20 @ 20:06 by Maddy Shi PA-C) Anxiety Brain aneurysm Status post clips CAD (coronary artery disease) Cataracts, bilateral Chronic pain Chronic, continuous use of opioids DDD (degenerative disc disease) Dementia with frontal lobe atrophy, short term memory loss Depression Diverticulitis Endometriosis Fibrocystic breast disease Fibromyalgia GERD (gastroesophageal reflux disease) History of angina History of heart attack 1994 Hyperlipidemia Kidney stone Liver disease Migraine MVP (mitral valve prolapse) Neuropathy Osteoarthritis Osteomyelitis Osteoporosis Peripheral neuropathy Pneumonia 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l H/O cervical spine surgery x2, 2005 & 2006 H/O dilation and curettage H/O mastectomy H/O vascular surgery to clip brain aneurysm History of bunionectomy History of cardiac catheterization History of coronary artery stent placement x2 2007 History of knee replacement, total bilateral History of repair of ACL in left knee Hx of CABG x2 vessel 1994 Hx of cataract removal with insertion of prosthetic lens Hx of lumpectomy Hx of tonsillectomy Total knee replacement status Family History Family History Mother Family history of osteoarthritis Acute myocardial infarction Father Heart disease Social History Social History Social History: Patient lives with her Angel. She tells me that she just stop smoking a couple months ago. She is retired from being
[2020-08-21 16:51] LABS: Basophils Percent Auto 0.4 % (0.2-1.2); Eosinophils Absolute Auto 0.1 K/mm3 (0-0.3); Hematocrit 40.6 % (37.0-47.0); Hemoglobin 12.9 g/dL (12.0-15.0); Immature Granulocyte Absolute 0.01 K/mm3 (0.00-0.031); Immature Granulocyte Percent A 0.2 % (0-0.5); Immature Platelet Fraction Pct 8.6 % (0.9-11.2); Lymphocytes Absolute Auto 1.96 K/mm3 (0.9-3.2); Lymphocytes Percent Auto 34.9 % (18.3-44.2); Mean Corpuscular HGB Conc 31.8 g/dl (32-36); Mean Corpuscular Hemoglobin 30.4 pg (26-34); Mean Corpuscular Volume 95.8 fl (80-100); Mean Platelet Volume 11.7 fl (7.4-10.4); Monocytes Absolute Auto 0.4 K/mm3 (0.1-0.6); Monocytes Percent Auto 7.1 % (2.6-8.5); Neutrophils Absolute Auto 3.1 K/mm3 (1.3-6.7); Neutrophils Percent Auto 55.4 % (45.5-73.1); Platelet Count Result 143 k/mm3 (150-375); Red Blood Count 4.24 M/mm3 (4.2-5.4); Red Cell Distribution Width 12.7 % (11.5-14.5); White Blood Count 5.6 K/mm3 (4.5-10.0)
[2020-08-21 17:02] LABS: Base Excess ABG 4.9 mEq/l (+/-2.0); Carboxyhemoglobin 6.2 % THb (0-2.0); Device NASAL CANNULA; Fractional Inspired Oxygen 24 %; HCO3 ABG 32.6 mEq/l (22.0-26.0); Methemoglobin ABG 0.1 %THb (0-1.5); Modified Allen's Test Pass; Oxygen Content ABG 17.6 %vol (16.0-22.0); Oxygen Saturation ABG 94.9 % (95.0-100.0); Oxyhemoglobin 89.3 % THb (90.0-100.0); PCO2 ABG 62.6 mmHg (35.0-45.0); PO2 ABG 80.6 mmHg (80.0-100.0); PO2 FiO2 Ratio Arterial Blood 3.36 %; Reduced Hemoglobin 4.4 %THb (0-5.0); Site Drawn RIGHT RADIAL; pH ABG 7.335 (7.350-7.450)
[2020-08-21 17:05] LABS: Alanine Aminotransferase 13 U/L (4-35); Alkaline Phosphatase 73 U/L (38-126); Anion Gap 1 mmol/L (8-16); Aspartate Amino Transferase 24 U/L (14-36); Bilirubin,Total 0.4 mg/dL (0.2-1.3); Blood Urea Nitrogen 6 mg/dL (7-17); Calcium 8.7 mg/dL (8.4-10.2); Carbon Dioxide 36 mmol/L (22-30); Chloride 103 mmol/L (98-107); Estimated CRCL calculation 48 ml/min; Estimated Glomerular Filt Rate > 60; Glucose 109 mg/dL (65-105); Potassium 3.9 mmol/L (3.4-5.0); Sodium 140 mmol/L (137-145)
[2020-08-21 17:17] LABS: Add Urine Microscopic? YES; Appearance Urine Clear (Clear); Bilirubin Urine Negative (Negative); Blood Urine 1+ (Negative); Color Urine Yellow (Yellow); Glucose Urine UA Negative (Negative); Ketones Urine Negative (Negative); Leukocyte Esterase Ur Negative LEU/UL (Negative); Mucus Urine Rare /lpf; Nitrate Urine Negative (Negative); Protein Urine Negative (Negative); RBC Urine 0-2 /hpf (0-2); Squamous Epithelial Cell Urine Rare /hpf (Few); Urobilinogen Urine Negative mg/dL (<2.0); WBC Urine 0-3 /hpf
[2020-08-21 18:17] LABS: NT Pro B Type Natriuretic Pept 224 PG/ML (5-100)
[2020-08-21] MEDS: methylPREDNISolone SOD SUCC 125 MG VIAL IV PUSH (19:05)
[2020-08-21 19:18] LABS: Base Excess ABG 6.7 mEq/l (+/-2.0); Carboxyhemoglobin 4.1 % THb (0-2.0); Fractional Inspired Oxygen 40 %; HCO3 ABG 29.4 mEq/l (22.0-26.0); Methemoglobin ABG 0.2 %THb (0-1.5); Oxygen Content ABG 17.4 %vol (16.0-22.0); Oxygen Saturation ABG 96.6 % (95.0-100.0); PCO2 ABG 35.2 mmHg (35.0-45.0); PO2 ABG 75.7 mmHg (80.0-100.0); PO2 FiO2 Ratio Arterial Blood 1.89 %; Reduced Hemoglobin 3.7 %THb (0-5.0); Total Hemoglobin 13.4 g/dL (12.0-18.0)
[2020-08-21 19:19] LABS: Device NON-INVASIVE VENT; Modified Allen's Test Pass; Site Drawn RIGHT RADIAL; pH ABG 7.539 (7.350-7.450)
[2020-08-21 19:20] LABS: Non-Invasive Expiratory Pressure 6 CMH2O; Non-Invasive Inspiratory Pressure 12 CMH2O; Non-Invasive Vent Rate 4 /MIN
--- NOTE | 2020-08-21 19:47 | PC.NURSE ---
Pt resting on cart with at bedside. Pt in no obvious distress with stable vitals. Pt alert and oriented x4. No complaints or concerns voiced at this time. Pt denies all pain and discomfort at this time. Pt states she presented to ED due to persistent dry mouth and difficulty swallowing. States it is not dry now as she is eating hard candy per ok from previous nurse. Pt states she has a hx difficulty swallowing and esophagitis and had to have an esophageal stretch approx one year ago. Pt has no complaints or concerns voiced and is aware of poc. Call button and personal items within reach. Pt advised to press call button for assistance.
--- NOTE | 2020-08-21 21:53 | ADMGEN ---
This patient, Natalie Millan, was admitted to 2 Medical Room 256-01 07/24/20 @ 2150. Patient/family oriented to hospital policies and general routines including ID bracelet, bed and alarms, visiting hours, pain management, procedures, bathroom and other care routines, personal items, smoking policy, room service/diet, and visiting hours. Information on how to activate the Rapid Response Team has been discussed. Patient/Family are encouraged to report perceived risks to care and to ask questions if they do not understand what they are told or what they should do.
[2020-08-22] VITALS: PULSE 54; O2SAT 97
--- NOTE | 2020-08-22 03:05 | PC.NURSE ---
Daylight Savings Time For Daylight Savings Time Ending in the Fall - Clocks are moved back. For Daylight Savings Time Beginning in the Spring - Clocks are moved ahead. For [facility], the time of change occurs at 0200 hrs. Time is taken from the tower observer. This entry on the patient's chart recognizes the change in time reflected during documentation. Example: 2 entries for vital signs may be charted for 0200 hrs.
--- NOTE | 2020-08-22 03:10 | PM.IMHP ---
H&P: HPI History of Present Illness Date/Time: 08/22/20 03:10 Chief Complaint: Dry mouth+ Narrative: This is a 69 year old female with known history of dementia, CAD, and hyperlipidemia who is known to be a chronic tobacco user who presented to the hospital with a complaint of dry mouth. The patient was just recently started on oral morphine for her chronic pain this past . She denies any known history of chronic pulmonary disease, fever, chills, cough, chest pain, shortness of breath, abdominal pain, dysuria, nausea, vomiting, diarrhea, or rectal bleeding. The patient was evaluated in the ER yesterday and ABG was obtained which demonstrated hypercapnia. The patient appears to have chronic hypercapnia and likely has undiagnosed COPD. CXR was unremarkable. No other complaints. Review of Systems Review of Systems: All systems reviewed & are unremarkable except as noted in HPI and below PMFSH Past Medical History Medical History (Updated 08/24/20 @ 06:31 by Nicola Euceda MD) Anxiety Brain aneurysm Status post clips CAD (coronary artery disease) Cataracts, bilateral Chronic pain Chronic, continuous use of opioids DDD (degenerative disc disease) Dementia with frontal lobe atrophy, short term memory loss Depression Diverticulitis Endometriosis Fibrocystic breast disease Fibromyalgia GERD (gastroesophageal reflux disease) History of angina History of heart attack 1994 Hyperlipidemia Kidney stone Liver disease Migraine MVP (mitral valve prolapse) Neuropathy Osteoarthritis Osteomyelitis Osteoporosis Peripheral neuropathy Pneumonia 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l H/O cervical spine surgery x2, 2006 & 2006 H/O dilation and curettage H/O mastectomy H/O vascular surgery to clip brain aneurysm History of bunionectomy History of cardiac catheterization History of coronary artery stent placement x2 2006 History of knee replacement, total bilateral History of repair of ACL in left knee Hx of CABG x2 vessel 1994 Hx of cataract removal with insertion of prosthetic lens Hx of lumpectomy Hx of tonsillectomy Total knee replacement status Family History Family History Mother Family history of osteoarthritis Acute myocardial infarction Father Heart disease Sibling Non-Hodgkin lymphoma Social History Social History Social History: Patient lives with her Angel. She tells me that she just stop smoking a couple months ago. 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 She has 3 children. She desires to be a full code. Smoking packs per day: 0 Smoking cigarettes per day: 0.0 Years smoked: 25 Smoking pack-years: 0.00 Smoking status: Light tobacco smoker Tobacco type: cigarettes Second hand tobacco smoke exposure: Yes Smoking end date: 07/21/19 Alcohol intake: never Drinks per week: 1 Substance use: current Substance use type: sedatives, opiates, painkillers and prescription drug Gender identity (if verbalized by the patient): Female Spiritual care concerns: No Agree to blood products: Yes Meds Home Medications and Allergies Home Medications Medication Instructions Recorded Confirmed Type Praluent Pen 75 mg SUBCUT [id number] 08/13/19 08/21/20 History ilnuzqm-pdhtchzvve-TZT-caff 1 cap PO DAILY PRN 08/13/19 08/21/20 History [Ascomp with Codeine] donepezil [Aricept] 10 mg PO HS 08/13/19 08/21/20 History duloxetine [Cymbalta] 60 mg PO DAILY 08/13/19 08/21/20 History ezetimibe [Zetia] 10 mg PO DAILY 08/13/19 08/21/20 History fexofenadine [Swapna Allergy] 18
[2020-08-22 04:00] VITALS: PULSE 47
[2020-08-22 06:00] VITALS: BP 135/54; PULSE 54; RESP 16; TEMP 36.1; O2SAT 92
[2020-08-22 08:44] VITALS: O2SAT 93
[2020-08-22] MEDS: ROSUVASTATIN 10 MG TABLET 40 MG PO (08:58)
[2020-08-22] MEDS: GABAPENTIN 400 MG CAPSULE 800 MG PO (08:58)
[2020-08-22] MEDS: EZETIMIBE 10 MG TABLET PO (08:59)
[2020-08-22] MEDS: PANTOPRAZOLE 40 MG TABLET PO (08:59)
[2020-08-22] MEDS: LORATADINE 10 MG TABLET PO (08:59)
[2020-08-22] MEDS: DULoxetine HCL 60 MG CAPSULE.DR PO (08:59)
[2020-08-22 09:00] VITALS: PULSE 58
--- NOTE | 2020-08-22 09:59 | PM.DS ---
DS: Admitting Diagnosis Admitting Diagnosis Admitting Diagnosis: Dry mouth DS: Discharge Diagnosis Discharge Diagnosis (1) Xerostomia: Code(s): K11.7 - Disturbances of salivary secretion Status: Acute Assessment and Plan: The patient has been placed in observation status. Likely secondary to morphine. (2) Hypercapnia: Code(s): R06.89 - Other abnormalities of breathing Status: Acute Assessment and Plan: The patient appears to be compensated on ABG. (3) Dementia: Qualifiers: Dementia type: unspecified type Dementia behavioral disturbance: without behavioral disturbance Qualified Code(s): F03.90 - Unspecified dementia without behavioral disturbance Code(s): F03.90 - Unspecified dementia without behavioral disturbance Status: Chronic (4) Anxiety: Code(s): F41.9 - Anxiety disorder, unspecified Status: Chronic (5) Chronic pain: Qualifiers: Chronic pain type: other chronic pain Qualified Code(s): G89.29 - Other chronic pain Code(s): G89.29 - Other chronic pain Status: Acute (6) GERD (gastroesophageal reflux disease): Qualifiers: Esophagitis presence: esophagitis presence not specified Qualified Code(s): K21.9 - Gastro-esophageal reflux disease without esophagitis Code(s): K21.9 - Gastro-esophageal reflux disease without esophagitis Status: Acute DS: Summary Hospital Course Reason for hospitalization: Dry mouth Hospital Course: 69 years old female with history of multiple medical problems who was recently started on morphine, admitted through the emergency room the complains of having dry mouth. Patient was assumed to have dry mouth secondary to morphine intake because a new medication for the patient. Patient was observed without overnight. Patient did not have any complication during the stay in the hospital. Today patient is awake and alert so patient was discharged home stable condition. Follow-up with primary care physician scheduled. Time spent discussing smoking cessation with patient: 3 to 10 minutes Status at Discharge Cognitive/behavioral status at discharge: Stable Functional status at discharge: independent ambulation Overall status at discharge: patient is back to baseline Time Spent with Patient Time attestation: Total time spent providing and/or coordinating discharge services: Time spent: Less than 30 minutes Exam Const: General: cooperative, no acute distress, alert and awake Nutritional Appearance: well nourished Orientation/consciousness: patient oriented x3 HENMT: Head: normal to inspection General nose exam: Normal external nose present Face and sinus: normal facial exam Mouth: Yes Normal oral and palatal mucosa present and Yes oropharynx normal Eyes: Pupils: Equal, round and reactive pupils present EOM: EOMs intact bilaterally Neck: Neck: supple and no JVD Thyroid: thyroid normal Lymphatic: lymphadenopathy not noted Resp: Effort & Inspection: normal respiratory effort Auscultation: clear to auscultation bilaterally Cardio: Rate: regular rate Rhythm: regular rhythm Heart sounds: no murmurs GI: Inspection: normal to inspection Auscultation: normal bowel sounds Skin: General skin exam: normal color and no rashes or lesions noted Neuro: General: patient oriented x3 Cranial nerves: Yes CN's II-XII intact bilaterally and Yes Equal, round and reactive pupils present Speech: normal speech Motor exam (neuro): 5/5 motor strength present throughout Sensory Exam: normal sensation Extrem: General: normal to inspection and no edema Psych: Mental Status: mental status grossly normal Affect: normal affect DS: Data Data Completed and Pending Labs on day of discharge: Labs from last 24 hours 08/21/20 08/21/20 08/21/20 19:13 17:08 16:57 WBC RBC Hgb Hct MCV MCH MCHC RDW Plt Count MPV Immature Gran % (Auto) Neut % (Au
== END 2020-08-22 11:05 | disposition home or self-care (01) ==
LOC: ANHED 16:22 → ANH2MED 19:48
PROVIDERS: Physician Assistant; Admitting Provider Internal Medicine; Emergency Provider Emergency Medicine; PCP Family Medicine Adolescent Medicine; Visit Provider Internal Medicine
DX: K11.7 Disturbances of salivary secretion (principal); R06.89 Other abnormalities of breathing; F03.90 Unspecified dementia, unspecified severity, without behavioral disturbance, psychotic disturbance, mood disturbance, and anxiety; G89.29 Other chronic pain; K21.9 Gastro-esophageal reflux disease without esophagitis; Z87.891 Personal history of nicotine dependence
CPT/HCPCS: 36415; 36600; 51701; 71046; 80053; 81001; 82375; 82805; 83050; 83880; 85025; 85055; 94002; 96374; 99285; A9270; G0378; J2930

== ENCOUNTER → 2020-12-24 07:04 | Outpatient (CLI) | payer MEDICARE, SELFPAY ==
[2020-12-24 19:11] LABS: SARS-CoV-2 RNA PCR Negative
== END ==
PROVIDERS: PCP Family Medicine Adolescent Medicine; Visit Provider Family Medicine Adolescent Medicine
DX: R43.9 Unspecified disturbances of smell and taste (principal); Z20.822 Contact with and (suspected) exposure to COVID-19
CPT/HCPCS: C9803; U0003; U0005

== ENCOUNTER 2021-11-10 07:54 | Outpatient (CLI) | payer MEDICARE, SELFPAY ==
--- NOTE | ~2021-11-10 | NM_ITS ---
EXAM: NM gastric emptying study DATE: 11/10/2021 12:56 INDICATION: Vomiting, unspecified. TECHNIQUE: A gastric emptying study was performed using the methodology of Dave GOFF, et al. J Nucl Med 2007; 48:568-572. The patient was given a meal consisting of 2 scrambled eggs labeled with 0.953 mCi Tc-99m sulfur colloid, 2 slices of toast, two packages of jam, and approximately 120 mL of water . Simultaneous anterior and posterior 1-min images of the abdomen were obtained with the patient supi ne at multiple time points over a total period of 4 hours. The geometric mean of anterior and posteri or views was determined, and the percentage retention was calculated for each time point. COMPARISON: None. FINDINGS: Gastric retention of the radiotracer-labeled meal was 51%, 27%, and 10% at the 1-hour, 2-h our, and 4-hour time points, respectively. With this technique, apparent rapid gastric emptying is virgen ggested by <30% gastric retention at 1 hour. Delayed gastric emptying is defined by gastric retention of >90% at 1 hour, >60% retention at 2 hours, or >10% retention at 4 hours. IMPRESSION: 1. Normal gastric emptying. Reviewed, dictated and finalized at location A. IMPRESSION: 1. Normal gastric emptying.
== END 2021-11-10 07:55 | disposition home or self-care (01) ==
PROVIDERS: PCP Family Medicine Adolescent Medicine; Visit Provider Family Medicine Adolescent Medicine
DX: R11.10 Vomiting, unspecified (principal)
CPT/HCPCS: 78264; A9541

== ENCOUNTER 2021-12-28 12:52 | Emergency (ER) | payer MEDICARE, SELFPAY ==
--- NOTE | ~2021-12-28 | XR_ITS ---
EXAMINATION: XR ribs LT 2V DATE: 12/28/2021 13:58 INDICATION: Left rib pain. TECHNIQUE: 2 views of the left ribs on 3 radiographs were obtained. COMPARISON: Chest 2 views 08/21/2020 FINDINGS: There is mild atelectasis at left lung base. No left-sided pleural effusion or pneumothorax . The heart size is normal. Median sternotomy wires and mediastinal surgical clips are seen, likely f rom prior coronary artery bypass grafting. Epidural electrodes are noted. There are changes of anteri or fusion procedure in cervical spine. Surgical clips overlie the abdomen. There is an old healed fra cture of left fifth rib. IMPRESSION: 1. No acute rib fracture. Reviewed, dictated and finalized at location A. IMPRESSION: 1. No acute rib fracture.
--- NOTE | ~2021-12-28 | XR_ITS ---
XR foot RT min 3V DATE: 12/28/2021 13:58 INDICATION: Dropped paper weight on to right foot TECHNIQUE: 4 views COMPARISON: None FINDINGS: Status post bunionectomy. There is a stable device in the proximal phalanx of the great toe . There is mild osteoarthritic change at the first metatarsophalangeal joint. Os tibiale externum, normal variant. Osteopenia. No fracture, dislocation, periosteal reaction or bone destruction is detected. IMPRESSION: Status post bunionectomy Postoperative change of proximal phalanx of great toe Mild first metatarsophalangeal joint osteoarthritis Reviewed, dictated and finalized at location B.
[2021-12-28 13:03] VITALS: BP 112/67; PULSE 83; RESP 16; TEMP 37; O2SAT 83
--- NOTE | 2021-12-28 13:11 | ED.FALL ---
HPI - Fall General Chief Complaint: Fall Stated Complaint: fall Time Seen by Provider: 12/28/21 13:21 Source: patient Mode of arrival: ambulatory Limitations: no limitations History of Present Illness HPI Narrative: Ms. Millan is a 71-year-old female patient presenting to the clinic today with complaints of recent falls yesterday and today-she also dropped a paper weight on her right foot. She reports she fell yesterday and injured her left ribs and right foot and today she fell and hit her face. Complains of a dull headache. Has an abrasion to her nose. When asked about any urinary symptoms she reports that she is has urgency and frequency. She denies any fever or chills. She denies any flank pain or abdominal pain. States that when she fell she landed on a antique rolling chair and hit her ribs. Reports pain to the lateral right foot with some mild bruising noted. She denies any shortness of breath or chest pain. States she is unsure as to why she is falling. She denies any loss of consciousness. She reports that she thinks she may have narcolepsy. Related Data Home Medications Medication Instructions Recorded Confirmed alirocumab 75 mg/mL subcutaneous 75 mg subcut [id number] 08/13/19 12/13/21 pen injector (Praluent Pen) fexofenadine 180 mg tablet 180 mg PO DAILY 08/13/19 12/13/21 (Swapna Allergy) nitroglycerin 0.4 mg sublingual 0.4 mg sublingual ONCE PRN Chest 08/13/19 12/13/21 tablet (Nitrostat) Pain pantoprazole 40 mg tablet,delayed 40 mg PO BID 08/13/19 12/13/21 release rosuvastatin 40 mg tablet (Crestor) 40 mg PO DAILY 08/13/19 12/13/21 fluticasone propionate 50 1 spray intranasal DAILY 09/28/20 12/13/21 mcg/actuation nasal spray,suspension saliva substitute combo no.9 15 ml mucous membrane QID 09/28/20 12/13/21 (Biotene Dry Mouth Oral Rinse mouthwash) Allergies Allergy/AdvReac Type Severity Reaction Status Date / Time adhesive tape Allergy Unknown RASH Verified 12/22/21 11:28 Review of Systems Review of Systems: Pertinent positives per HPI. Patient denies any fever, chills, rash, headache, visual changes, dizziness, cough, runny nose, sore throat, shortness of breath, chest pain, palpitations, nausea, vomiting, diarrhea, constipation, or abdominal pain. [facility] Past Medical History Medical History Anxiety Aortic atherosclerosis 11/2017 Brain aneurysm Status post clips CAD (coronary artery disease) Cataracts, bilateral Cerebral atherosclerosis Chronic fatigue Chronic pain Chronic, continuous use of opioids DDD (degenerative disc disease) Dementia with frontal lobe atrophy, short term memory loss Depression Diverticulitis Endometriosis Fibrocystic breast disease Fibromyalgia GERD (gastroesophageal reflux disease) History of angina History of heart attack 1994 Hyperlipidemia Kidney stone Liver disease Migraine MVP (mitral valve prolapse) Neuropathy Osteoarthritis Osteomyelitis Osteoporosis Peripheral neuropathy Peripheral vascular disease, unspecified 11/2017 Pneumonia Right knee pain 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l H/O cervical spine surgery x2, 2006 & 2007 H/O dilation and curettage H/O mastectomy H/O vascular surgery to clip brain aneurysm History of bunionectomy History of cardiac catheterization History of coronary artery stent placement x2 2007 History of knee replacement, total bilateral History of repair of ACL in left knee Hx of CABG x2 vessel 1994 Hx of cataract removal with insertion of prosthetic lens Hx of lumpectomy Hx of tonsillectomy Total knee replacement status Family History Family Histo
== END 2021-12-28 15:08 | disposition home or self-care (01) ==
PROVIDERS: Emergency Provider Nurse Practitioner Family; PCP Family Medicine Adolescent Medicine
DX: S90.31XA Contusion of right foot, initial encounter (principal); S20.212A Contusion of left front wall of thorax, initial encounter; S00.31XA Abrasion of nose, initial encounter; W19.XXXA Unspecified fall, initial encounter; I70.0 Atherosclerosis of aorta; I67.2 Cerebral atherosclerosis; F03.90 Unspecified dementia, unspecified severity, without behavioral disturbance, psychotic disturbance, mood disturbance, and anxiety; N80.9 Endometriosis, unspecified; N60.19 Diffuse cystic mastopathy of unspecified breast; M79.7 Fibromyalgia; K21.9 Gastro-esophageal reflux disease without esophagitis; I25.2 Old myocardial infarction; E78.5 Hyperlipidemia, unspecified; M34.1 CR(E)ST syndrome; M19.90 Unspecified osteoarthritis, unspecified site; M81.0 Age-related osteoporosis without current pathological fracture; G62.9 Polyneuropathy, unspecified; I73.9 Peripheral vascular disease, unspecified; Z96.82 Presence of neurostimulator; Z95.5 Presence of coronary angioplasty implant and graft; Z96.653 Presence of artificial knee joint, bilateral; Z98.49 Cataract extraction status, unspecified eye; Z96.1 Presence of intraocular lens; Z90.10 Acquired absence of unspecified breast and nipple; I25.110 Atherosclerotic heart disease of native coronary artery with unstable angina pectoris
CPT/HCPCS: 71100; 73630; 99214; G0463

== ENCOUNTER 2021-12-29 15:30 | Observation (INO) | payer MEDICARE, SELFPAY ==
[2021-12-29] VITALS (12 sets, daily range): BP systolic 110–133; BP diastolic 44–98; PULSE 55–80; RESP 12–20; TEMP 36.1–37.2; O2SAT 96–100; BMI 19.7
--- NOTE | ~2021-12-29 | CT_ITS ---
EXAMINATION: CT facial bones wo con DATE: 12/29/2021 18:48 INDICATION: Face injury. TECHNIQUE: Computed tomography (CT) of the facial bones and maxillofacial region was performed withou t intravenous contrast. Automated exposure control and iterative reconstruction technique were employ ed. The dose-length product was 256.43 mGy-cm. COMPARISON: CT sinuses 11/30/2003 FINDINGS: There are likely changes of ocular lens replacement surgeries. There is an aneurysm clip in suprasellar cistern. There are changes of left-sided craniotomy. There is rightward deviation of the nasal septum. No fracture. The paranasal sinuses are clear. There are changes of anterior fusion pro cedure in cervical spine. There is severe cervical spondylosis. IMPRESSION: 1. No fracture. Reviewed, dictated and finalized at location A. IMPRESSION: 1. No fracture.
--- NOTE | ~2021-12-29 | CT_ITS ---
EXAMINATION: CT brain wo con DATE: 12/29/2021 18:48 INDICATION: Confusion. Dizziness. Syncope. Head injury. TECHNIQUE: Computed tomography (CT) of the head was performed without intravenous contrast. The mA wa s adjusted according to patient size. Iterative reconstruction technique was employed. The dose-lengt h product was 605.33 mGy-cm. COMPARISON: Head CT 08/25/2019 FINDINGS: There is no intracranial hemorrhage, acute infarction, or abnormal intracranial mass lesion . There is chronic encephalomalacia in anterior left temporal lobe. There is an aneurysm clip in supr asellar cistern. There are changes of left-sided craniotomy. The mastoid air cells are normal. There are likely changes of ocular lens replacement surgeries. The paranasal sinuses are clear. IMPRESSION: 1. Chronic encephalomalacia in anterior left temporal lobe. Reviewed, dictated and finalized at location A.
--- NOTE | 2021-12-29 16:18 | ECG_ITS ---
Measurements Intervals [place] Rate: 61 P: 37 NE: 138 QRS: 67 QRSD: 82 T: 65 QT: 388 QTc: 393 Interpretive Statements SINUS RHYTHM BASELINE ARTIFACT- V4 NORMAL ECG Electronically Signed On 12-29-2021 20:20:26 CDT by Zacarias Lucas D.O.
[2021-12-29 16:50] LABS: Basophils Percent Auto 0.4 % (0.2-1.2); Eosinophils Absolute Auto 0.1 K/mm3 (0-0.3); Eosinophils Percent Auto 2.2 % (0-4.4); Hemoglobin 12.3 g/dL (12.0-15.0); Immature Granulocyte Absolute 0.01 K/mm3 (0.00-0.031); Immature Granulocyte Percent A 0.2 % (0-0.5); Immature Platelet Fraction Pct 9.3 % (0.9-11.2); Lymphocytes Absolute Auto 1.81 K/mm3 (0.9-3.2); Lymphocytes Percent Auto 33.2 % (18.3-44.2); Mean Corpuscular HGB Conc 30.8 g/dl (32-36); Mean Corpuscular Hemoglobin 29.6 pg (26-34); Mean Corpuscular Volume 96.2 fl (80-100); Mean Platelet Volume 11.4 fl (7.4-10.4); Monocytes Absolute Auto 0.4 K/mm3 (0.1-0.6); Monocytes Percent Auto 7.5 % (2.6-8.5); Neutrophils Absolute Auto 3.1 K/mm3 (1.3-6.7); Neutrophils Percent Auto 56.5 % (45.5-73.1); Platelet Count Result 124 k/mm3 (150-375); Red Blood Count 4.16 M/mm3 (4.2-5.4); Red Cell Distribution Width 12.9 % (11.5-14.5); White Blood Count 5.5 K/mm3 (4.5-10.0)
[2021-12-29 16:56] LABS: Alanine Aminotransferase 22 U/L (6-35); Alkaline Phosphatase 56 U/L (38-126); Anion Gap 2 mmol/L (8-16); Aspartate Amino Transferase 34 U/L (14-36); Bilirubin,Total 0.4 mg/dL (0.2-1.3); Blood Urea Nitrogen 12 mg/dL (7-17); Calcium 8.9 mg/dL (8.4-10.2); Carbon Dioxide 36 mmol/L (22-30); Chloride 101 mmol/L (98-107); Estimated CRCL calculation 47 ml/min; Estimated Glomerular Filt Rate > 60; Glucose 111 mg/dL (65-110); Potassium 3.9 mmol/L (3.4-5.0); Sodium 139 mmol/L (137-145)
--- NOTE | 2021-12-29 16:59 | ED.FALL ---
HPI - Fall General Chief Complaint: Fall <Maddy Chacon PA-C - Last Filed: 12/30/21 03:11> Stated Complaint: frequent fall, dizzy <Maddy Chacon PA-C - Last Filed: 12/30/21 03:11> Time Seen by Provider: 12/29/21 16:57 <Maddy Chacon PA-C - Last Filed: 12/30/21 03:11> History of Present Illness HPI Narrative: Patient is a 71-year-old female with a complex medical history including brain aneurysm status post clipping 30 years prior, chronic back pain, chronic dizziness, MVP here for evaluation of dizziness with frequent falls. Patient states that she feels dizzy most notably when she goes from sitting to standing. Yesterday, after she had the sensation, she fell forward and hit the left side of her ribs against a chair. She was evaluated at an urgent care facility, had a chest x-ray that was negative for acute rib fracture or cardiopulmonary disease, and was discharged home. After she was discharged home, she had 2 more falls, 1 of which were she fell forward and hit her face, leading to nasal swelling and pain and a diffuse headache. Patient states that she feels dizzy constantly, but it is most notable with position changes. Also notes blurry and double vision. Denies any chest pain, shortness of breath. She takes morphine every 12 hours for chronic back pain, states this has not been working as well as usual. States that she is afraid to go home and states she is nervous she will fall again. <Maddy Chacon PA-C - Last Filed: 12/30/21 03:11> Related Data Home Medications: Home Medications Medication Instructions Recorded Confirmed alirocumab 75 mg/mL subcutaneous 75 mg subcut [id number] 08/13/19 12/29/21 pen injector (Praluent Pen) fexofenadine 180 mg tablet 180 mg PO DAILY 08/13/19 12/29/21 (Swapna Allergy) nitroglycerin 0.4 mg sublingual 0.4 mg sublingual ONCE PRN Chest 08/13/19 12/29/21 tablet (Nitrostat) Pain rosuvastatin 40 mg tablet (Crestor) 40 mg PO DAILY 08/13/19 12/29/21 fluticasone propionate 50 1 spray intranasal DAILY PRN 09/28/20 12/29/21 mcg/actuation nasal Allergy Symptoms spray,suspension saliva substitute combo no.9 15 ml mucous membrane QID 09/28/20 12/29/21 (Biotene Dry Mouth Oral Rinse mouthwash) alprazolam 1 mg tablet 1 mg PO TID 12/29/21 12/29/21 nystatin 100,000 unit/gram topical 1 applic topical DAILY 12/29/21 12/29/21 ointment <TAM Terry Last Filed: 12/30/21 03:11> Allergies/Adverse Reactions: Allergies Allergy/AdvReac Type Severity Reaction Status Date / Time adhesive tape Allergy Unknown RASH Verified 12/30/21 00:57 <TAM Terry Last Filed: 12/30/21 03:11> Review of Systems Review of Systems: Gen: Denies fevers or chills Eyes: Denies eye pain or visual change ENT: Denies congestion Respiratory: Denies shortness of breath or cough CV: Denies chest pain or palpitations GI: Denies abdominal pain nausea, emesis or diarrhea : denies burning, urgency, frequency or hematuria Musculoskeletal: Reports left-sided rib pain Neuro: Reports dizziness, headaches, double vision. Skin: Denies rash Except as documented, all other systems reviewed and negative <TAM Terry Last Filed: 12/30/21 03:11> [facility] Past Medical History Medical History: Medical History Anxiety Aortic atherosclerosis 11/2017 Brain aneurysm Status post clips CAD (coronary artery disease) Cataracts, bilateral Cerebral atherosclerosis Chronic fatigue Chronic pain Chronic, continuous use of opioids DDD (degenerative disc disease) Dementia with frontal lobe atrophy, short term memory loss Depression Diverticulitis Endometriosis Fibrocystic breast disease Fibromyalgia GERD (gastroesophageal reflux disease) History of angina History of heart attack 1994 Hyperlipidemia Kidney stone Liver disease Migraine M
[2021-12-29] MEDS: SODIUM CHLORIDE 0.9% IV 1,000 ML 999 ML IV CONT (17:42)
[2021-12-29 18:30] LABS: SARS-CoV-2 RNA PCR Negative
[2021-12-29 19:17] LABS: Appearance Urine Clear (Clear); Bilirubin Urine Negative (Negative); Blood Urine 1+ (Negative); Color Urine Yellow (Yellow); Glucose Urine UA Negative (Negative); Ketones Urine Negative (Negative); Leukocyte Esterase Ur 1+ LEU/UL (Negative); Nitrate Urine Negative (Negative); Protein Urine Trace mg/dL (Negative); Specific Grav Ur 1.015 (1.001-1.035); Urobilinogen Urine 0.2 mg/dL (<2.0); pH Urine 7.5 (5.0-9.0)
[2021-12-29 19:33] LABS: Add Urine Microscopic? YES; Bacteria Urine Trace /hpf; Mucus Urine Rare /lpf; RBC Urine 0-2 /hpf (0-2); Squamous Epithelial Cell Urine Rare /hpf (Few)
--- NOTE | 2021-12-29 21:05 | PM.IMHP ---
H&P: HPI History of Present Illness Date/Time: 12/29/21 21:05 Chief Complaint: Falls, dizziness Narrative: Patient is a 71-year-old female past medical history of brain aneurysm status post clipping, chronic back pain with pain pump, chronic dizziness, GERD, hyperlipidemia, dementia presents to the ED with complaints of weakness and falls. Patient has longstanding dizziness issues, recently had fall fell forward hit her and her left side of her ribs. She had been seen in Urgent Care with negative imaging patient was sent home. Patient and had more falls leading her to come to the hospital. Sometimes her symptoms are exacerbated with double vision, blurriness, nausea. Of note patient was recently seen by PCP on 12/22/2021 with concerns of stomach pain cramping, at that time her Protonix was stopped concern for muscle spasms. Patient takes Xanax for muscle spasms and panic attacks. There was concern of polypharmacy as well and some medications have been stopped, at that point was oxybutynin. She was seen on 12/13/2021 as well for multiple issues including UTI in November, muscle spasms which she is on Xanax 1 mg t.i.d. p.r.n. In October of 2021 patient was seen by PCP Dr. Walker for persistent dizziness. PCP had arranged physical therapy at [facility] which has not been helping. Patient states sometimes of physical therapy will exacerbate her symptoms. At that time PCP thought she may have polypharmacy while on donepezil, memantine, gabapentin, duloxetine, myrbetriq. So far her medications have been stopped recently was gabapentin 100 mg 4 times a day, Klonopin for sleep, pantoprazole, oxycodone 4 times a day. Current med list includes donepezil, memantine for dementia which she states she has to take. Zetia and Crestor and Praluent for hyperlipidemia. For pain control she is on morphine 60 mg q.12 hours with tramadol as breakthrough 100 mg 4 times a day as needed Xanax 1 mg t.i.d. p.r.n. for panic attacks and for muscle spasms. She had stopped her Protonix for concern of muscle spasms? She is on hyoscyamine for GERD. She has topical ketoconazole for fungal infection on her nose. Patient is having a hard time weaning these medications even further. Each 1 of these medications seem to be essential to her. In the ED: Labs and vitals within normal limits. Head CT shows chronic encephalomalacia anterior left temporal lobe. There are no acute findings on workup. Patient to be admitted for observation for frequent falls which may be due to some polypharmacy. Review of Systems Review of Systems: Constitutional: No Fever, No Chills, No Night Sweats, endorses weakness ENT/Mouth: No Hearing Changes, No Ear Pain, No Nasal Congestion, No Sinus Pain, No Hoarseness, No sore throat, No Rhinorrhea, No Swallowing Difficulty Eyes: No Eye Pain, No Redness, No Vision Changes Cardiovascular: No Chest Pain, No Palpitations, No Dyspnea on Exertion, No Orthopnea, No Claudication, No Edema Respiratory: No Cough, No Sputum, No Wheezing, No Shortness of Breath Gastrointestinal: No Vomiting, No Diarrhea, No Constipation, No Abdominal Pain, No Heartburn, No Hematochezia, No Melena. Endorses nausea Genitourinary: No Dysuria, No Urinary Frequency, No Hematuria, No Urinary Incontinence, No Urgency Musculoskeletal: No Arthralgias, No Myalgias, No Joint Swelling, No Joint Stiffness, No Back Pain Skin: No Skin Lesions, No Pruritis, No Hair Changes Neuro: No Numbness, No Paresthesias, No Loss of Consciousness, No Syncope, No Dizziness, No Headache. Endorses falls and generalized weakness Psych: No Anxiety/Panic, No Depression Heme: No Bruising, No Bleeding Lymph: No Adenopathy Endocrine: No Polyuria, No Polydipsia, No Temperature Intolerance PMFSH Past Medical History Medical History Anxiety Aortic atherosclerosis 11/2017 Brain aneurysm Status post clips CAD (coronary artery disease) Cataracts, bilateral
[2021-12-30 00:45] VITALS: PULSE 58; RESP 20; O2SAT 98
--- NOTE | 2021-12-30 00:53 | ADMGEN ---
This patient, Natalie Millan, was admitted to 2 Medical Room 261-01. Patient/family oriented to hospital policies and general routines including ID bracelet, bed and alarms, visiting hours, pain management, procedures, bathroom and other care routines, personal items, smoking policy, room service/diet, and visiting hours. Information on how to activate the Rapid Response Team has been discussed. Patient/Family are encouraged to report perceived risks to care and to ask questions if they do not understand what they are told or what they should do.
[2021-12-30] MEDS: HEPARIN SODIUM 5,000 UNITS/ML VIAL 5000 UNITS SUB-Q ×2 (02:10→10:07)
[2021-12-30 05:15] VITALS: BP 109/48; PULSE 63; RESP 18; TEMP 36.6; O2SAT 95
[2021-12-30] MEDS: traMADol HCL (*CRX) 50 MG TABLET 100 MG PO (05:28)
[2021-12-30] MEDS: ALPRAZolam (*CRX) 0.5 MG TABLET 1 MG PO (05:29)
[2021-12-30] MEDS: MORPHINE SULFATE (*CRX) 60 MG TABCR PO (10:04)
[2021-12-30] MEDS: ROSUVASTATIN 10 MG TABLET 40 MG PO (10:05)
[2021-12-30] MEDS: SALIVA SUBSTITUTE RINSE 473 ML BOTTLE 15 ML MUCOUS MEM (10:06)
[2021-12-30] MEDS: MICONAZOLE NITRATE 2% CREAM 30 GM TUBE 1 APPLIC TOPICAL (10:07)
[2021-12-30] MEDS: EZETIMIBE 10 MG TABLET PO (11:09)
[2021-12-30] MEDS: LORATADINE 10 MG TABLET PO (11:09)
[2021-12-30] MEDS: MEMANTINE 5 MG TABLET PO (11:09)
--- NOTE | 2021-12-30 12:32 | PM.DS ---
DS: Admitting Diagnosis Discharge Date 12/30/21 1243 Admitting Diagnosis Dizziness Polypharmacy Recurrent falls DS: Discharge Diagnosis Discharge Diagnosis (1) Dizziness: Code(s): R42 - Dizziness and giddiness Status: Acute Assessment and Plan: -Thought to be secondary to polypharmacy, patient followed closely by her PCP Dr. Walker (who has been very thorough with her meds) -Palliative care consult outpatient may be beneficial and was discussed on admission for further management of chronic pain control. She may be getting dizziness, nausea, weakness from the opiates despite lack of pain control, which makes it very difficult to control the side effects as they are becoming debilitating, however we are unable to stop these medications as she is very reliant on them -no abnormalities on physical exam no focal deficits, CT head only shows chronic changes.? Patient's weakness may be due to polypharmacy.? At this time there appears to be no metabolic reason for her dizziness and falls, electrolytes within normal limits.? No infectious etiology -orthostatic vitals were negative.? -recently had stopped oxycodone, gabapentin, Klonopin, Protonix? -current med list appears to be all essential, it is very difficult to wean further -PT and OT consulted and recommended outpatient therapy may be appropriate.? -1 liter of IV fluids given in ED. - Dizziness resolved by discharge. Gait was steady. She was counseled on changing positions slowly and maintaining adequate hydration. 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 (3) Chronically on opiate therapy: Code(s): Z79.891 - [facility] (current) use of opiate analgesic Status: Acute Assessment and Plan: As above. (4) Tinea: Code(s): B35.9 - Dermatophytosis, unspecified Status: Acute Assessment and Plan: Of nose, continued on ketoconazole cream. (5) Recurrent falls: Code(s): R29.6 - Repeated falls Status: Acute Assessment and Plan: Secondary to dizziness. PT/OT evaluation and outpatient PT referral for balance and gait training. DS: Summary Hospital Course Reason for hospitalization: Dizziness and recurrent falls Hospital Course: Patient is a 71-year-old female past medical history of brain aneurysm status post clipping, chronic back pain with pain pump, chronic dizziness, GERD, hyperlipidemia, dementia presents to the ED with complaints of weakness and falls.? Patient has longstanding dizziness issues, recently had fallen forward, hit her and her left side of her ribs.? She had been seen in Urgent Care with negative imaging and was sent home.? Patient and had more falls leading her to come to the hospital.? Sometimes her symptoms are exacerbated with double vision, blurriness, nausea. Of note patient was recently seen by PCP on 12/22/2021 with concerns of stomach pain cramping, at that time her Protonix was stopped concern for muscle spasms.? Patient takes Xanax for muscle spasms and panic attacks.? There was concern of polypharmacy as well and some medications have been stopped, at that point was oxybutynin.? She was seen on 12/13/2021 as well for multiple issues including UTI in November, muscle spasms which she is on Xanax 1 mg t.i.d. p.r.n. In October of 2021 patient was seen by PCP Dr. Walker for persistent dizziness.? PCP had arranged physical therapy at [place] which has not been helping.? Patient states sometimes of physical therapy will exacerbate her symptoms.? At that time PCP thought she may have polypharmacy while on donepezil, memantine, gabapentin, duloxetine, myrbetriq.? So far her medications have been stopped recently was gabapentin 100 mg 4 times a day, Klonopin for sleep, pantoprazole, oxycodone 4 times a day. Current med list
== END 2021-12-30 13:42 | disposition home or self-care (01) ==
LOC: ANHED 19:33 → ANH2MED 12-30 05:42
PROVIDERS: Emergency Medicine; Physician Assistant; Admitting Provider Student in an Organized Health Care Education/Training Program; Emergency Provider General Practice; PCP Family Medicine Adolescent Medicine; Visit Provider Nurse Practitioner Family
DX: R42 Dizziness and giddiness (principal); Z79.899 Other long term (current) drug therapy; Z87.891 Personal history of nicotine dependence; B35.9 Dermatophytosis, unspecified; R29.6 Repeated falls; G89.29 Other chronic pain; I34.1 Nonrheumatic mitral (valve) prolapse; I25.10 Atherosclerotic heart disease of native coronary artery without angina pectoris; Z95.5 Presence of coronary angioplasty implant and graft; Z95.1 Presence of aortocoronary bypass graft; Z86.79 Personal history of other diseases of the circulatory system; Z79.51 Long term (current) use of inhaled steroids; R53.82 Chronic fatigue, unspecified; G31.09 Other frontotemporal neurocognitive disorder; F02.80 Dementia in other diseases classified elsewhere, unspecified severity, without behavioral disturbance, psychotic disturbance, mood disturbance, and anxiety; R41.3 Other amnesia; F32.A Depression, unspecified; F41.9 Anxiety disorder, unspecified; N80.9 Endometriosis, unspecified; N60.19 Diffuse cystic mastopathy of unspecified breast; Z20.822 Contact with and (suspected) exposure to COVID-19; M79.7 Fibromyalgia; K21.9 Gastro-esophageal reflux disease without esophagitis; I25.2 Old myocardial infarction; E78.5 Hyperlipidemia, unspecified; K76.9 Liver disease, unspecified; I73.9 Peripheral vascular disease, unspecified; G62.9 Polyneuropathy, unspecified; Z96.82 Presence of neurostimulator; Z96.653 Presence of artificial knee joint, bilateral; Z80.0 Family history of malignant neoplasm of digestive organs; Z80.42 Family history of malignant neoplasm of prostate; Z80.7 Family history of other malignant neoplasms of lymphoid, hematopoietic and related tissues; G93.89 Other specified disorders of brain; I67.1 Cerebral aneurysm, nonruptured
CPT/HCPCS: 36415; 70450; 70486; 80053; 81001; 85025; 85055; 93005; 96360; 96372; 97161; 97166; 97535; 99285; A9270; C9803; G0378; J1644; J7030; U0003; U0005

== ENCOUNTER → 2022-02-01 16:52 | Outpatient (CLI) | payer MEDICARE, SELFPAY ==
--- NOTE | ~2022-02-01 | XR_ITS ---
EXAM: XR lumbar spine 2-3V DATE: 02/01/2022 17:42 HISTORY: M54.50 - Low back pain, unspecified . COMPARISON: 08/21/2018. FINDINGS: Left posterior stimulator, leads incompletely visualized. Severely decreased mineralizatio n 5 nonrib-bearing lumbar-type vertebral bodies. Pedicles intact. Normal vertebral body alignment. Ve rtebral body heights preserved. Multilevel mild disc space narrowing. Multilevel facet sclerosis and hypertrophy with interspinous narrowing. Atherosclerotic abdominal aortic calcification without evide nt aneurysm. No fracture or dislocation. IMPRESSION: Multilevel mild degenerative disc disease. Multilevel severe facet arthropathy. Reviewed, dictated and finalized at location K.
== END ==
PROVIDERS: PCP Physician Assistant; Visit Provider Physician Assistant
DX: M51.36 Other intervertebral disc degeneration, lumbar region (principal)
CPT/HCPCS: 72100

== ENCOUNTER 2022-03-01 08:52 | Outpatient (CLI) | payer MEDICARE, SELFPAY ==
--- NOTE | ~2022-03-01 | CT_ITS ---
EXAMINATION: CT abdomen pelvis w con DATE: 03/01/2022 09:25 INDICATION: Epigastric abdominal pain, nausea, vomiting, constipation. Weight loss. Loss of appetite. TECHNIQUE: Computed tomography (CT) of the abdomen and pelvis was performed with 100 CC Omnipaque 350 intravenous contrast. Automated exposure control and iterative reconstruction technique were employe d. Exam dose: 179.12 mGy-cm total exam DLP. COMPARISON: 02/28/2019 CT abdomen pelvis FINDINGS: There is minimal atelectasis at the dependent lower lobes, right greater than left. Heart s ize is normal. No pericardial or pleural effusion. Numerous cysts of considerably variable size are scattered throughout the liver, the largest measurin g up to approximately 7 cm maximal dimension. The common bile duct is dilated up to approximately 15 mm, increased since 02/28/2019. Pancreatic duct measures up to 4 mm diameter. Consider correlation with serum bilirubin level and possible MRCP for further evaluation as clinically appropriate. The gallbladder is distended. No gallbladder wall thickening or pericholecystic fluid or fat strandin g. Normal splenic size. No pancreatic mass lesion or calcification. Normal morphology of the adrenal glands. There are small cyst of each kidney is suggested. The kidneys are otherwise unremarkable. No urinary tract calculus or hydroureteronephrosis. The urinary bladder is unremarkable. There is diverticulosis of the colon; no CT evidence of diverticulitis. There is a very prominent joon unt fecal material within the colon, but no bowel obstruction is noted. No evidence of appendicitis. There is abdominal aortic and iliac artery calcification but no abdominal aortic aneurysm. No intrape ritoneal or retroperitoneal or pelvic mass lesion or adenopathy or ascites. Status post sternotomy. No suspicious osteolytic or osteoblastic lesions are noted. There are some degenerative changes of th e thoracic and lumbar spine. IMPRESSION: Increased size of pancreatic and bile ducts and increased gallbladder distention since ; correlation with serum bilirubin is recommended. Consider MRCP as clinically appropriate Diverticulosis of colon; no evidence of diverticulitis Normal appendix Reviewed, dictated and finalized at Location A. Reviewed, dictated and finalized at location B. IMPRESSION: Increased size of pancreatic and bile ducts and increased gallblad clara distention since 02/28/2019; correlation with serum bilirubin is recommended . Consider MRCP as clinically appropriate Diverticulosis of colon; no evidence of diverticulitis Normal appendix
[2022-03-01 09:19] LABS: Estimated Glomerular Filt Rate > 60
== END 2022-03-01 08:53 | disposition home or self-care (01) ==
PROVIDERS: PCP Physician Assistant; Visit Provider Nurse Practitioner
DX: R10.813 Right lower quadrant abdominal tenderness (principal); R10.816 Epigastric abdominal tenderness; R10.84 Generalized abdominal pain; R11.2 Nausea with vomiting, unspecified; R63.4 Abnormal weight loss; R68.81 Early satiety; K57.30 Diverticulosis of large intestine without perforation or abscess without bleeding
CPT/HCPCS: 74177; Q9967

== ENCOUNTER 2022-03-03 00:28 | Day surgery (SDC) | payer MEDICARE, SELFPAY ==
[2022-02-16 12:33] VITALS: BMI 20.8
--- NOTE | 2022-03-03 12:41 | WPDANESEPPF ---
Anes - Initial Pre Proc Eval Procedure: Operation Date: 03/03/22 13:30 Proposed Procedures p Esophagogastroduodenoscopy & Colonoscopy - Travis Partida MD Date/Time: 03/03/22 12:41 Surgeon: Travis Partida MD Pre Op Diagnosis: GERD, Nausea, Vomiting, Weight loss Patient Data Age: 71 Gender: F Height: 1.55 m Weight: 50 kg Allergies Allergy/AdvReac Type Severity Reaction Status Date / Time adhesive tape Allergy Unknown RASH Verified 03/03/22 12:40 Home Medications Medication Instructions Recorded Confirmed Type alirocumab 75 mg/mL subcutaneous 75 mg subcut [id number] 08/13/19 02/16/22 History pen injector (Praluent Pen) fexofenadine 180 mg tablet 180 mg PO DAILY PRN Allergy 08/13/19 02/16/22 History (Swapna Allergy) Symptoms nitroglycerin 0.4 mg sublingual 0.4 mg sublingual ONCE PRN Chest 08/13/19 02/16/22 History tablet (Nitrostat) Pain rosuvastatin 40 mg tablet (Crestor) 40 mg PO DAILY 08/13/19 02/16/22 History butalbital 50 mg-acetaminophen 325 1 cap PO Q4H PRN headache #40 caps 09/22/21 02/16/22 Rx mg-caffeine 40 mg-codeine 30 mg cap ezetimibe 10 mg tablet (Zetia) 10 mg PO DAILY #90 tabs 11/16/21 02/16/22 Rx lansoprazole 30 mg capsule,delayed 30 mg PO DAILY #30 caps 02/01/22 02/16/22 Rx release polyethylene glycol 3350 17 17 g PO DAILY #238 grams 02/01/22 02/16/22 Rx gram/dose oral powder (Miralax) donepezil 10 mg tablet See Rx Instructions .Route 02/16/22 02/16/22 Rx .COMPLEX #90 tabs ketoconazole 2 % topical cream 1 applic topical DAILY PRN Rash 02/16/22 02/16/22 History ondansetron 4 mg disintegrating 4 mg PO Q6H PRN Nausea 02/16/22 02/16/22 History tablet alprazolam 1 mg tablet 1 mg PO TID PRN Anxiety #90 tabs 02/20/22 Rx tramadol 50 mg tablet 100 mg PO Q6H PRN Breakthrough 02/20/22 Rx Pain #60 tabs morphine 60 mg tablet,extended 60 mg PO BID #60 tabs 02/21/22 02/21/22 Rx release hyoscyamine sulfate 0.125 mg tablet 0.125 mg PO QID PRN dyspepsia #30 02/23/22 Rx tabs Patient hx anesthesia problems: none Family hx anesthesia problems: none Results Review: All pre-operative results and documents have been reviewed as part of the pre-operative evaluation. [facility] Past Medical History Medical History (Updated 02/20/22 @ 11:19 by Katarzyna Lee PA-C) Anxiety Aortic atherosclerosis 11/2017 Brain aneurysm Status post clips Burning sensation of mouth CAD (coronary artery disease) Cataracts, bilateral Cerebral atherosclerosis Chronic fatigue Chronic pain Chronic, continuous use of opioids DDD (degenerative disc disease) Dementia with frontal lobe atrophy, short term memory loss Depression Diverticulitis Dysphagia Early satiety Endometriosis Epigastric abdominal tenderness Fibrocystic breast disease Fibromyalgia Generalized abdominal pain GERD (gastroesophageal reflux disease) History of angina History of heart attack 1994 Hyperlipidemia Increased salivation Kidney stone Liver disease Migraine MVP (mitral valve prolapse) Nausea and vomiting Neuropathy Osteoarthritis Osteomyelitis Osteoporosis Peripheral neuropathy Peripheral vascular disease, unspecified 11/2017 Pneumonia Right knee pain RLQ abdominal tenderness 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l H/O cervical spine surgery x2, 2005 & 2006 H/O dilation and curettage H/O mastectomy H/O vascular surgery to clip brain aneurysm History of bunionectomy History of cardiac catheterization History of coronary artery stent placement x2 2007 History of knee replacement, total bilateral History of repair of ACL in left knee Hx of CABG x2 vessel 1994 Hx of cataract removal with insertion of
[2022-03-03 12:43] VITALS: BP 123/91; PULSE 77; RESP 18; TEMP 36.4; O2SAT 99
--- NOTE | 2022-03-03 12:44 | WPDANESEPPF ---
Anes - Initial Pre Proc Eval Procedure: Operation Date: 03/03/22 13:30 Proposed Procedures p Esophagogastroduodenoscopy & Colonoscopy - Travis Partida MD Date/Time: 03/03/22 12:44 Surgeon: Travis Partida MD Pre Op Diagnosis: GERD, Nausea, Vomiting, Weight loss Patient Data Age: 71 Gender: F Height: 1.55 m Weight: 50 kg Allergies Allergy/AdvReac Type Severity Reaction Status Date / Time adhesive tape Allergy Unknown RASH Verified 03/03/22 12:40 Home Medications Medication Instructions Recorded Confirmed Type alirocumab 75 mg/mL subcutaneous 75 mg subcut [id number] 08/13/19 02/16/22 History pen injector (Praluent Pen) fexofenadine 180 mg tablet 180 mg PO DAILY PRN Allergy 08/13/19 02/16/22 History (Swapna Allergy) Symptoms nitroglycerin 0.4 mg sublingual 0.4 mg sublingual ONCE PRN Chest 08/13/19 02/16/22 History tablet (Nitrostat) Pain rosuvastatin 40 mg tablet (Crestor) 40 mg PO DAILY 08/13/19 02/16/22 History butalbital 50 mg-acetaminophen 325 1 cap PO Q4H PRN headache #40 caps 09/22/21 02/16/22 Rx mg-caffeine 40 mg-codeine 30 mg cap ezetimibe 10 mg tablet (Zetia) 10 mg PO DAILY #90 tabs 11/16/21 02/16/22 Rx lansoprazole 30 mg capsule,delayed 30 mg PO DAILY #30 caps 02/01/22 02/16/22 Rx release polyethylene glycol 3350 17 17 g PO DAILY #238 grams 02/01/22 02/16/22 Rx gram/dose oral powder (Miralax) donepezil 10 mg tablet See Rx Instructions .Route 02/16/22 02/16/22 Rx .COMPLEX #90 tabs ketoconazole 2 % topical cream 1 applic topical DAILY PRN Rash 02/16/22 02/16/22 History ondansetron 4 mg disintegrating 4 mg PO Q6H PRN Nausea 02/16/22 02/16/22 History tablet alprazolam 1 mg tablet 1 mg PO TID PRN Anxiety #90 tabs 02/20/22 Rx tramadol 50 mg tablet 100 mg PO Q6H PRN Breakthrough 02/20/22 Rx Pain #60 tabs morphine 60 mg tablet,extended 60 mg PO BID #60 tabs 02/21/22 02/21/22 Rx release hyoscyamine sulfate 0.125 mg tablet 0.125 mg PO QID PRN dyspepsia #30 02/23/22 Rx tabs Patient hx anesthesia problems: none Family hx anesthesia problems: none Results Review: All pre-operative results and documents have been reviewed as part of the pre-operative evaluation. [facility] Past Medical History Medical History (Updated 02/20/22 @ 11:19 by Katarzyna Lee PA-C) Anxiety Aortic atherosclerosis 11/2017 Brain aneurysm Status post clips Burning sensation of mouth CAD (coronary artery disease) Cataracts, bilateral Cerebral atherosclerosis Chronic fatigue Chronic pain Chronic, continuous use of opioids DDD (degenerative disc disease) Dementia with frontal lobe atrophy, short term memory loss Depression Diverticulitis Dysphagia Early satiety Endometriosis Epigastric abdominal tenderness Fibrocystic breast disease Fibromyalgia Generalized abdominal pain GERD (gastroesophageal reflux disease) History of angina History of heart attack 1994 Hyperlipidemia Increased salivation Kidney stone Liver disease Migraine MVP (mitral valve prolapse) Nausea and vomiting Neuropathy Osteoarthritis Osteomyelitis Osteoporosis Peripheral neuropathy Peripheral vascular disease, unspecified 11/2017 Pneumonia Right knee pain RLQ abdominal tenderness 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l H/O cervical spine surgery x2, 2005 & 2006 H/O dilation and curettage H/O mastectomy H/O vascular surgery to clip brain aneurysm History of bunionectomy History of cardiac catheterization History of coronary artery stent placement x2 2007 History of knee replacement, total bilateral History of repair of ACL in left knee Hx of CABG x2 vessel 1994 Hx of cataract removal with insertion of
[2022-03-03] MEDS: LACTATED RINGERS 1,000 ML 150 ML IV CONT (12:48)
--- NOTE | 2022-03-03 13:02 | SUR.OPER ---
EGD: [id number] COLON: [id number]
[2022-03-03 13:15] VITALS: BP 113/49; PULSE 54; RESP 16; O2SAT 100
[2022-03-03 13:25] VITALS: BP 124/55; PULSE 55; RESP 16; O2SAT 100
[2022-03-03 13:35] VITALS: BP 132/57; PULSE 61; RESP 16; O2SAT 100
== END 2022-03-03 13:55 | disposition home or self-care (01) ==
PROVIDERS: PCP Physician Assistant; Visit Provider Internal Medicine Gastroenterology
PROC: 0DJ08ZZ Inspection of Upper Intestinal Tract, Via Natural or Artificial Opening Endoscopic (ICD-10-PCS; CPT 43235; principal; 2022-03-03 13:30)
DX: Z12.11 Encounter for screening for malignant neoplasm of colon (principal); K29.50 Unspecified chronic gastritis without bleeding; K57.30 Diverticulosis of large intestine without perforation or abscess without bleeding; K21.00 Gastro-esophageal reflux disease with esophagitis, without bleeding; R10.817 Generalized abdominal tenderness; R10.31 Right lower quadrant pain; F41.9 Anxiety disorder, unspecified; I70.0 Atherosclerosis of aorta; I25.10 Atherosclerotic heart disease of native coronary artery without angina pectoris; F03.90 Unspecified dementia, unspecified severity, without behavioral disturbance, psychotic disturbance, mood disturbance, and anxiety; N80.9 Endometriosis, unspecified; R53.83 Other fatigue; H26.9 Unspecified cataract; I67.1 Cerebral aneurysm, nonruptured; R68.81 Early satiety; R13.10 Dysphagia, unspecified; I34.1 Nonrheumatic mitral (valve) prolapse; M81.0 Age-related osteoporosis without current pathological fracture; M19.90 Unspecified osteoarthritis, unspecified site; I73.9 Peripheral vascular disease, unspecified; G62.9 Polyneuropathy, unspecified; M54.31 Sciatica, right side; E04.1 Nontoxic single thyroid nodule; R56.9 Unspecified convulsions; Z95.5 Presence of coronary angioplasty implant and graft; Z95.1 Presence of aortocoronary bypass graft; R11.2 Nausea with vomiting, unspecified; R10.816 Epigastric abdominal tenderness; R10.84 Generalized abdominal pain; R63.4 Abnormal weight loss; R10.813 Right lower quadrant abdominal tenderness; R29.6 Repeated falls; Z79.891 Long term (current) use of opiate analgesic; R20.8 Other disturbances of skin sensation
CPT/HCPCS: 43239; G0121; 88305; J2704; J7120

== ENCOUNTER 2022-03-14 09:39 | Emergency (ER) | payer MEDICARE, SELFPAY ==
--- NOTE | ~2022-03-14 | US_ITS ---
EXAMINATION: US right upper quadrant DATE: 03/14/2022 10:52 INDICATION: Right upper quadrant abdominal pain. TECHNIQUE: Multiple grayscale and Doppler ultrasound images of the abdomen were obtained. COMPARISON: Abdomen and pelvis 03/01/2022 FINDINGS: There are cysts in the liver measuring up to 7.4 cm. There is normal flow in main portal ve in. The gallbladder is normal in size. No gallstones or gallbladder wall thickening. There was no son ographic Le sign. The common duct is normal and measures 2 mm. Right kidney is normal. IMPRESSION: 1. No etiology for the patient's symptoms. Reviewed, dictated and finalized at location B.
[2022-03-14 09:39] VITALS: BP 158/65; PULSE 54; RESP 18; TEMP 36.6; O2SAT 97
[2022-03-14 10:00] VITALS: BP 149/53; PULSE 57; RESP 18; O2SAT 97
[2022-03-14 10:08] LABS: Basophils Percent Auto 0.2 % (0.2-1.2); Eosinophils Absolute Auto 0.1 K/mm3 (0-0.3); Eosinophils Percent Auto 1.1 % (0-4.4); Hematocrit 44.1 % (37.0-47.0); Hemoglobin 14.1 g/dL (12.0-15.0); Immature Granulocyte Absolute 0.01 K/mm3 (0.00-0.031); Immature Granulocyte Percent A 0.2 % (0-0.5); Immature Platelet Fraction Pct 14.3 % (0.9-11.2); Lymphocytes Absolute Auto 1.55 K/mm3 (0.9-3.2); Lymphocytes Percent Auto 24.2 % (18.3-44.2); Mean Corpuscular Hemoglobin 30.6 pg (26-34); Mean Corpuscular Volume 95.7 fl (80-100); Mean Platelet Volume 13.4 fl (7.4-10.4); Monocytes Absolute Auto 0.4 K/mm3 (0.1-0.6); Monocytes Percent Auto 5.6 % (2.6-8.5); Neutrophils Absolute Auto 4.4 K/mm3 (1.3-6.7); Neutrophils Percent Auto 68.7 % (45.5-73.1); Platelet Count Result 121 k/mm3 (150-375); Red Blood Count 4.61 M/mm3 (4.2-5.4); Red Cell Distribution Width 12.9 % (11.5-14.5); White Blood Count 6.4 K/mm3 (4.5-10.0)
[2022-03-14 10:20] LABS: Alanine Aminotransferase 18 U/L (6-35); Albumin Level 4.9 g/dL (3.5-5.1); Alkaline Phosphatase 78 U/L (38-126); Anion Gap 11 mmol/L (8-16); Aspartate Amino Transferase 26 U/L (14-36); Bilirubin,Total 0.8 mg/dL (0.2-1.3); Blood Urea Nitrogen 8 mg/dL (7-17); Calcium 9.2 mg/dL (8.4-10.2); Carbon Dioxide 32 mmol/L (22-30); Chloride 99 mmol/L (98-107); Estimated CRCL calculation 54 ml/min; Estimated Glomerular Filt Rate > 60; Glucose 102 mg/dL (65-110); Lipase 32 U/L (23-300); Potassium 3.5 mmol/L (3.4-5.0); Sodium 142 mmol/L (137-145)
[2022-03-14] MEDS: MORPHINE SULFATE (*CRX) 4 MG/ML INJ IV PUSH (10:31)
[2022-03-14 10:45] LABS: Appearance Urine Clear (Clear); Bilirubin Urine Negative (Negative); Blood Urine 1+ (Negative); Color Urine Yellow (Yellow); Glucose Urine UA Negative (Negative); Ketones Urine Negative (Negative); Leukocyte Esterase Ur Negative LEU/UL (Negative); Nitrate Urine Negative (Negative); Protein Urine Negative (Negative); Urobilinogen Urine 0.2 mg/dL (<2.0); pH Urine 6.5 (5.0-9.0)
[2022-03-14 11:02] VITALS: BP 135/54; PULSE 52; RESP 16; O2SAT 99
[2022-03-14 11:06] LABS: RBC Urine 0-2 /hpf (0-2); Squamous Epithelial Cell Urine Rare /hpf (Few); WBC Urine 0-3 /hpf
[2022-03-14 11:07] LABS: Add Urine Microscopic? YES
[2022-03-14 12:02] VITALS: BP 134/46; PULSE 50; RESP 16; O2SAT 100
--- NOTE | 2022-03-14 12:18 | ED.ABDPAIN ---
HPI - Abdominal Pain General Chief Complaint: Abdominal Pain Stated Complaint: ABD pain Time Seen by Provider: 03/14/22 09:43 History of Present Illness HPI narrative: Patient is a 71-year-old female who presents the ER with upper abdominal pain. Sudden onset. Sharp. Radiates to back. Has been having this intermittently for over a year. She recently underwent endoscopic ultrasound yesterday at [facility]. It showed she had a dilated common bile duct measuring up to 12 mm. She had some hyperechoic material consistent with sludge that was seen inside and otherwise normal gallbladder. There was no other acute issue. She had pancreatic atrophy and some cysts. Normal ampulla and periampullary diverticulum were noted. Patient has been following with Dr. Phuc Mcdowell. No fevers or chills or sweats. She is not vomiting. Patient has chronic pain and has a pain stimulator and takes morphine at home. Related Data Home Medications Medication Instructions Recorded Confirmed alirocumab 75 mg/mL subcutaneous 75 mg subcut [id number] 08/13/19 03/08/22 pen injector (Praluent Pen) fexofenadine 180 mg tablet 180 mg PO DAILY PRN Allergy 08/13/19 03/08/22 (Swapna Allergy) Symptoms nitroglycerin 0.4 mg sublingual 0.4 mg sublingual ONCE PRN Chest 08/13/19 03/08/22 tablet (Nitrostat) Pain rosuvastatin 40 mg tablet (Crestor) 40 mg PO DAILY 08/13/19 03/08/22 ketoconazole 2 % topical cream 1 applic topical DAILY PRN Rash 02/16/22 03/08/22 aspirin 81 mg tablet,delayed 81 mg PO DAILY 03/14/22 release Allergies Allergy/AdvReac Type Severity Reaction Status Date / Time adhesive tape Allergy Unknown RASH Verified 03/14/22 09:47 armodafinil [From Nuvigil] AdvReac Unknown Hyperactive Verified 03/14/22 09:47 clindamycin AdvReac Unknown Rash Verified 03/14/22 09:47 Review of Systems Review of Systems: All systems reviewed & are unremarkable except as noted in HPI and below Constitutional: Constitutional: Denies chills, Denies fatigue and Denies fever(s) ENT: Denies nasal congestion and Denies sore throat Cardiovascular: Cardiovascular: Denies chest pain, Denies rapid heart rate and Denies radiating jaw, neck or arm pain Respiratory: Respiratory: Denies cough, Denies dyspnea and Denies wheezing Gastrointestinal: Gastrointestinal: Reports abdominal pain, Denies diarrhea, Reports nausea and Denies vomiting Musculoskeletal: Musculoskeletal: Denies arthralgias and Denies joint swelling Integumentary/Breasts: Skin/Breast: Denies erythema and Denies rash PMFSH Past Medical History Medical History (Updated 03/14/22 @ 13:06 by Ish Hamilton MD) Anxiety Aortic atherosclerosis 11/2017 Brain aneurysm Status post clips Burning sensation of mouth CAD (coronary artery disease) Cataracts, bilateral Cerebral atherosclerosis Chronic fatigue Chronic pain Chronic, continuous use of opioids DDD (degenerative disc disease) Dementia with frontal lobe atrophy, short term memory loss Depression Dilated bile duct Diverticulitis Dysphagia Early satiety Endometriosis Epigastric abdominal tenderness Fibrocystic breast disease Fibromyalgia Gallbladder sludge Generalized abdominal pain GERD (gastroesophageal reflux disease) History of angina History of heart attack 1994 Hyperlipidemia Increased salivation IPMN (intraductal papillary mucinous neoplasm) Kidney stone Liver disease Migraine MVP (mitral valve prolapse) Nausea and vomiting Neuropathy Osteoarthritis Osteomyelitis Osteoporosis Peripheral neuropathy Peripheral vascular disease, unspecified 11/2017 Pneumonia Right knee pain RLQ abdominal tenderness 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l H/O cervi
[2022-03-14 13:15] VITALS: BP 134/55; PULSE 51; RESP 16; O2SAT 100
== END 2022-03-14 13:16 | disposition home or self-care (01) ==
PROVIDERS: Emergency Provider Emergency Medicine; PCP Physician Assistant
DX: K82.8 Other specified diseases of gallbladder (principal); I25.10 Atherosclerotic heart disease of native coronary artery without angina pectoris; F03.90 Unspecified dementia, unspecified severity, without behavioral disturbance, psychotic disturbance, mood disturbance, and anxiety; M79.7 Fibromyalgia; K21.9 Gastro-esophageal reflux disease without esophagitis; I25.2 Old myocardial infarction; E78.5 Hyperlipidemia, unspecified; M81.0 Age-related osteoporosis without current pathological fracture; I73.9 Peripheral vascular disease, unspecified; I34.1 Nonrheumatic mitral (valve) prolapse; G62.9 Polyneuropathy, unspecified; Z95.5 Presence of coronary angioplasty implant and graft; Z95.1 Presence of aortocoronary bypass graft; F17.210 Nicotine dependence, cigarettes, uncomplicated; Z79.82 Long term (current) use of aspirin; Z79.891 Long term (current) use of opiate analgesic
CPT/HCPCS: 36415; 76705; 80053; 81001; 83690; 85025; 85055; 96374; 99284; J2270

== ENCOUNTER 2022-03-29 11:29 | Outpatient (CLI) | payer MEDICARE, SELFPAY ==
[2022-03-29 12:05] LABS: Amylase 44 U/L (30-110)
== END 2022-03-29 11:30 | disposition home or self-care (01) ==
LOC: ANHSURGERY 11:35
PROVIDERS: PCP Physician Assistant; Visit Provider Surgery
DX: Z01.818 Encounter for other preprocedural examination (principal); K80.10 Calculus of gallbladder with chronic cholecystitis without obstruction
CPT/HCPCS: 36415; 82150; 86850; 86900; 86901

== ENCOUNTER 2022-04-06 00:49 | Day surgery (SDC) | payer MEDICARE, SELFPAY ==
[2022-03-27 09:31] VITALS: BMI 19.6
--- NOTE | 2022-03-27 11:01 | PC.NURSE ---
Report to the Outpatient Waiting Room, entrance under the green pavilion located off [facility], at time _10:00AM____ on date ___04/06/22____. OR Time: __12:00PM . Time changes happen often and if your time is changed the preop area will call you the afternoon before. - You and your visitor will be asked to self-screen and do not enter if you have any COVID symptoms. - We encourage only one visitor and NO visitors under age 16 are allowed at this time. Your visitor will receive communication by the phone number that is given day of service. - The patient visitor is requested to social distance or may leave the building when not with patient due to restrictions. - A mask is required within the hospital. Patients may have clear liquids (water, carbonated beverages, clear teas, apple juice) until 3 hours prior to surgery with a maximum of 20 ounces. - No food from midnight until time of surgery Take the following medications with a SIP of water the morning of surgery: ___ALPRAZOLAM, MORPHINE, TRAMADOL AND ZOFRAN NEEDED Medications to discontinue per physician NONE Date to take last dose Please no make-up, nail ugandan, hairspray, perfume, deodorant, or body powder the day of surgery. No jewelry (including any body piercings) or valuables the day of surgery, leave them at home. Please take a shower or bath the night before, or the morning of, surgery with an antibacterial soap. Wear comfortable, loose fitting clothing. Children are encouraged to wear pajamas. - Jewelry must be removed prior to entering the operating room. Rings and piercings that are not removed may be cut off. - The hospital will not accept responsibility for valuables. - Please leave all valuables, including medications, at home the day of surgery. If you are going home after surgery, a licensed bulk tank driver must drive you home. - NO public transportation without another adult. - We recommend that an adult stay with you for 24 hours following discharge. - We also recommend that you do not drive, make important decision, drink alcoholic beverages, or take any drugs that were not prescribed by your health care provider for at least 24 hours after your discharge time. Follow any additional instructions given to you from your surgeon. If you or anyone in your household have experienced Covid symptoms in the past week, please notify your surgeon or the nurse liaison at the phone number below for possible testing. Telephone instructions given to __PATIENT and asked if any additional questions and then verbalized understanding. Patient advised to call surgeon office or pre surgery nurse liaison [phone] if any additional questions.
--- NOTE | 2022-04-05 16:11 | WPDANESEPPF ---
Anes - Initial Pre Proc Eval Procedure: Operation Date: 04/06/22 12:00 Proposed Procedures p Laparoscopic Cholecystectomy - Claudia Hale MD Date/Time: 04/05/22 16:11 Surgeon: Claudai Hale MD Pre Op Diagnosis: chronic cholecystitis with calculus Patient Data Age: 71 Gender: F Height: 1.56 m Weight: 48 kg Allergies Allergy/AdvReac Type Severity Reaction Status Date / Time adhesive tape Allergy Unknown RASH Verified 04/06/22 10:29 clindamycin Allergy Unknown Rash Verified 04/06/22 10:29 armodafinil [From Nuvigil] AdvReac Unknown Hyperactive Verified 04/06/22 10:29 Penicillins AdvReac Unknown Rash Verified 04/06/22 10:29 Sulfa (Sulfonamide AdvReac Unknown Unknown Verified 04/06/22 10:29 Antibiotics) Home Medications Medication Instructions Recorded Confirmed Type alirocumab 75 mg/mL subcutaneous 75 mg subcut [id number] 08/13/19 04/03/22 History pen injector (Praluent Pen) fexofenadine 180 mg tablet 180 mg PO DAILY PRN Allergy 08/13/19 04/03/22 History (Swapna Allergy) Symptoms nitroglycerin 0.4 mg sublingual 0.4 mg sublingual ONCE PRN Chest 08/13/19 04/03/22 History tablet (Nitrostat) Pain rosuvastatin 40 mg tablet (Crestor) 40 mg PO DAILY 08/13/19 04/03/22 History butalbital 50 mg-acetaminophen 325 1 cap PO Q4H PRN headache #40 caps 09/22/21 04/03/22 Rx mg-caffeine 40 mg-codeine 30 mg cap ezetimibe 10 mg tablet (Zetia) 10 mg PO DAILY #90 tabs 11/16/21 04/03/22 Rx lansoprazole 30 mg capsule,delayed 30 mg PO DAILY #30 caps 02/01/22 04/03/22 Rx release polyethylene glycol 3350 17 17 g PO DAILY #238 grams 02/01/22 04/03/22 Rx gram/dose oral powder (Miralax) donepezil 10 mg tablet See Rx Instructions .Route 02/16/22 04/03/22 Rx .COMPLEX #90 tabs ketoconazole 2 % topical cream 1 applic topical DAILY PRN Rash 02/16/22 04/03/22 History hyoscyamine sulfate 0.125 mg tablet 0.125 mg PO QID PRN dyspepsia #40 03/23/22 04/06/22 Rx tabs morphine 60 mg tablet,extended 60 mg PO BID #60 tabs 03/24/22 04/06/22 Rx release ondansetron 4 mg disintegrating See Rx Instructions .Route 03/27/22 04/03/22 History tablet .COMPLEX PRN Nausea alprazolam 1 mg tablet 1 mg PO TID PRN Anxiety #90 tabs 03/30/22 04/06/22 Rx tramadol 50 mg tablet 100 mg PO Q6H PRN Breakthrough 03/30/22 04/03/22 Rx Pain #60 tabs Patient hx anesthesia problems: none Family hx anesthesia problems: none Results Review: All pre-operative results and documents have been reviewed as part of the pre-operative evaluation. [facility] Past Medical History Medical History (Updated 04/06/22 @ 11:07 by Oniel Tatum MD) Anxiety Aortic atherosclerosis 11/2017 Aortic stenosis 1.3 cm2 Brain aneurysm Status post clips Burning sensation of mouth CAD (coronary artery disease) Cataracts, bilateral Cerebral atherosclerosis Chronic fatigue Chronic pain Chronic, continuous use of opioids DDD (degenerative disc disease) Dementia with frontal lobe atrophy, short term memory loss Depression Dilated bile duct Diverticulitis Dysphagia Early satiety Endometriosis Epigastric abdominal tenderness Fibrocystic breast disease Fibromyalgia Gallbladder sludge Generalized abdominal pain GERD (gastroesophageal reflux disease) History of angina History of heart attack 1994 Hyperlipidemia Increased salivation IPMN (intraductal papillary mucinous neoplasm) Kidney stone Liver disease Migraine MVP (mitral valve prolapse) Nausea and vomiting Neuropathy Osteoarthritis Osteomyelitis Osteoporosis Peripheral neuropathy Peripheral vascular disease, unspecified 11/2017 Pneumonia Right knee pain RLQ abdominal tenderness 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
[2022-04-06] VITALS (9 sets, daily range): BP systolic 104–143; BP diastolic 34–64; PULSE 42–64; RESP 12–20; TEMP 36.3; O2SAT 99–100; BMI 18.8
[2022-04-06] MEDS: LACTATED RINGERS 1,000 ML 30 ML IV CONT (10:55)
[2022-04-06] MEDS: ACETAMINOPHEN 500 MG TABLET 1000 MG PO (11:02)
[2022-04-06] MEDS: KETOROLAC 15 MG/ML VIAL (*BKC) IV PUSH (11:03)
--- NOTE | 2022-04-06 12:04 | WPDHPUPDATE1 ---
History and Physical Update Update Date/Time: 04/06/22 12:04 History and Physical has been reviewed, including an updated exam of the patient. There are NO changes in the patient's condition. Risks, benefits, and alternatives have been discussed and questions answered. Patient agrees to proceed with procedure.
[2022-04-06] MEDS: ceFAZolin 2 GM/D5W 50 ML 2 GM/50 ML BAG IVPB (12:39)
[2022-04-06] MEDS: BUPIVACAINE/EPINEPHRINE 0.25% 50 ML VIAL 30 ML INFILTRATE (12:59)
--- NOTE | 2022-04-06 13:28 | SUR.OPER ---
left hip posterior spinal stimulator palpable turned off per patient/controll with verified in preop
--- NOTE | 2022-04-06 13:45 | W.PM.PROC2 ---
Procedure Note - Detailed Date of Procedure 04/06/22 Pre-op Diagnosis chronic cholecystitis with calculus Post-op Diagnosis Same Procedure Performed Laparoscopic cholecystectomy Surgeon Claudia Hale MD Anesthesia General Indications 71-year-old female presented to the office complaining of postprandial right upper quadrant abdominal pain associated with nausea and vomiting. Workup including imaging significant for chronic cholecystitis, cholelithiasis. Findings Cholecystitis with cholelithiasis Description of Procedure The patient was taken to the operating room placed in the supine position. After adequate induction of general anesthesia, the patient was prepped and draped in normal sterile fashion. A time-out was then performed to verify the patient's identity as well as the procedure being performed. I then made a 5 mm incision in the infraumbilical region. Through this, a Veress needle was placed into the peritoneal cavity and CO2 gas was then insufflated. After adequate pneumoperitoneum was achieved, the Veress needle was removed and a 5 mm optiview trocar was placed through this incision under direct visualization. I then placed the laparoscope through this trocar site and under direct visualization placed a further 12 mm subxiphoid port as well as 2 additional 5 mm ports in the right upper abdomen. The gallbladder was then identified and was noted to be moderately inflamed and distended. I was able to place a grasper at the dome of the gallbladder and this was retracted anterior and cephalad up over the liver. A 2nd retractor was then placed at the infundibulum and retracted laterally, this allowed visualization of the triangle of Calot. I then was able to visualize the cystic duct in its entirety from its proximal insertion into the gallbladder, to its distal junction with the common hepatic/common bile duct junction. At this point, I carefully skeletonized the proximal cystic duct with the [place] dissector. I then clipped and transected the proximal cystic duct. Next I visualized the cystic artery. Again the artery was skeletonized, clipped, and transected. I then used the Bovie cautery to take down the peritoneal attachments of the gallbladder off the liver bed. Once the gallbladder specimen was completely detached, an endo-pouch was placed through the 12 mm port site. I then placed the gallbladder specimen into the Endo pouch and removed the endo-pouch from the 12 mm port site. The specimen will now be sent to pathology for further review. I then copiously irrigated the right upper quadrant. Hemostasis was noted in the liver bed, the clips were noted to be in good position on both the cystic duct stump and the cystic artery stump. No other pathology was noted in the right upper quadrant. I then moved the laparoscope to the subxiphoid port. No iatrogenic injury or other pathology was noted in the lower abdomen. I then closed the 12 mm trocar site under direct visualization using the Raffy cone and 0 Vicryl suture. At this point, the abdomen was desufflated and all ports removed. All port sites were then closed with 4.O Monocryl subcuticular sutures. Dermabond was placed on each incision. The patient tolerated the procedure well, was extubated in the operating room postoperative and will be transferred to the recovery room in stable condition Estimated Blood Loss 5 Drains No Packing No Pathology Yes Complications No immediate complications Condition Stable Disposition PACU [facility] Billing Surgery - Charge Forward: Surgery Billing
--- NOTE | 2022-04-06 14:05 | SUR.PHASEI ---
CORRECTION: PATIENT WAS NOT RESPONSIVE UPON ARRIVAL TO PACU AT 1342.
--- NOTE | 2022-04-06 14:06 | SUR.PHASEI ---
PATIENT ON BEDPAN; VOIDED A SMALL AMOUNT. DEPENDS WET; CHANGED.
[2022-04-06] MEDS: fentaNYL CITRATE INJ (*CRX) 100 MCG/2 ML VIAL 25 MCG IV PUSH (14:14)
[2022-04-06] MEDS: ONDANSETRON INJ 4 MG/2 ML VIAL IV PUSH (15:16)
== END 2022-04-06 16:00 | disposition home or self-care (01) ==
PROVIDERS: PCP Physician Assistant; Visit Provider Surgery
PROC: 0FT44ZZ Resection of Gallbladder, Percutaneous Endoscopic Approach (ICD-10-PCS; CPT 47562; principal; 2022-04-06 12:00)
DX: K81.1 Chronic cholecystitis (principal); I25.10 Atherosclerotic heart disease of native coronary artery without angina pectoris; M79.7 Fibromyalgia; F41.9 Anxiety disorder, unspecified; F32.A Depression, unspecified; F03.90 Unspecified dementia, unspecified severity, without behavioral disturbance, psychotic disturbance, mood disturbance, and anxiety; K21.9 Gastro-esophageal reflux disease without esophagitis; I25.2 Old myocardial infarction; E78.5 Hyperlipidemia, unspecified; I34.1 Nonrheumatic mitral (valve) prolapse; M81.0 Age-related osteoporosis without current pathological fracture; G62.9 Polyneuropathy, unspecified; Z95.5 Presence of coronary angioplasty implant and graft; Z95.1 Presence of aortocoronary bypass graft; Z87.891 Personal history of nicotine dependence
CPT/HCPCS: 47562; 36415; 82150; 86850; 86900; 86901; 88304; A9270; J0330; J0461; J0690; J1100; J1885; J2370; J2405; J2704; J3010; J7030; J7120

== ENCOUNTER 2022-04-14 12:53 | Emergency (ER) | payer MEDICARE, SELFPAY ==
[2022-04-14 13:12] VITALS: BP 111/52; PULSE 111; RESP 16; TEMP 36.4; O2SAT 98
--- NOTE | 2022-04-14 13:13 | ED.WOUNDLAC ---
HPI - Wound/Laceration General Chief Complaint: Wound/Laceration Stated Complaint: INFECTED SURGERY SITE Time Seen by Provider: 04/14/22 13:13 Source: patient Mode of arrival: ambulatory Limitations: no limitations History of Present Illness HPI narrative: 71-year-old female presents with complaint of redness, swelling, tenderness to incision sites from gallbladder surgery approximately 1 week ago. Reports that she has had yellow drainage from 1 of the incisions sites today. Afebrile. Reports overall not feeling well the patient states this is normal for her due to poor diet. Has not called her surgeon. All systems reviewed and negative except as noted above. Related Data Home Medications Medication Instructions Recorded Confirmed alirocumab 75 mg/mL subcutaneous 75 mg subcut [id number] 08/13/19 04/14/22 pen injector (Praluent Pen) fexofenadine 180 mg tablet 180 mg PO DAILY PRN Allergy 08/13/19 04/14/22 (Swapna Allergy) Symptoms nitroglycerin 0.4 mg sublingual 0.4 mg sublingual ONCE PRN Chest 08/13/19 04/14/22 tablet (Nitrostat) Pain rosuvastatin 40 mg tablet (Crestor) 40 mg PO DAILY 08/13/19 04/14/22 ketoconazole 2 % topical cream 1 applic topical DAILY PRN Rash 02/16/22 04/14/22 ondansetron 4 mg disintegrating See Rx Instructions .Route 03/27/22 04/14/22 tablet .COMPLEX PRN Nausea Allergies Allergy/AdvReac Type Severity Reaction Status Date / Time adhesive tape Allergy Unknown RASH Verified 04/14/22 12:59 clindamycin Allergy Unknown Rash Verified 04/14/22 12:59 armodafinil [From Nuvigil] AdvReac Unknown Hyperactive Verified 04/14/22 12:59 Penicillins AdvReac Unknown Rash Verified 04/14/22 12:59 Sulfa (Sulfonamide AdvReac Unknown Unknown Verified 04/14/22 12:59 Antibiotics) Review of Systems Review of Systems: CONSTITUTIONAL: Denies fever, chills, or sweats. EYES: Denies visual changes, redness, or discharge. ENT: Denies rhinorrhea, congestion, sore throat, or otalgia. CARDIOVASCULAR: Denies chest pain, palpitations, or edema. RESPIRATORY: Denies cough or dyspnea. GASTROINTESTINAL: Denies abdominal pain, nausea, vomiting, or diarrhea. GENITOURINARY: Denies dysuria or hematuria. SKIN: Denies rash or itching. Reports redness, swelling, tenderness to gallbladder incision sites. MUSCULOSKELETAL: Denies back pain, joint pain, or myalgia. NEUROLOGIC: Denies headache, numbness, or weakness. PSYCHIATRIC: Denies anxiety or depression. All other systems reviewed are negative, except as documented in HPI. [facility] Past Medical History Medical History (Updated 04/14/22 @ 13:23 by Betsy Zayas NP) Anxiety Aortic atherosclerosis 11/2017 Aortic stenosis 1.3 cm2 Brain aneurysm Status post clips Burning sensation of mouth CAD (coronary artery disease) Cataracts, bilateral Cerebral atherosclerosis Chronic fatigue Chronic pain Chronic, continuous use of opioids DDD (degenerative disc disease) Dementia with frontal lobe atrophy, short term memory loss Depression Dilated bile duct Diverticulitis Dysphagia Early satiety Endometriosis Epigastric abdominal tenderness Fibrocystic breast disease Fibromyalgia Gallbladder sludge Generalized abdominal pain GERD (gastroesophageal reflux disease) History of angina History of heart attack 1994 Hyperlipidemia Increased salivation IPMN (intraductal papillary mucinous neoplasm) Kidney stone Liver disease Migraine MVP (mitral valve prolapse) Nausea and vomiting Neuropathy Osteoarthritis Osteomyelitis Osteoporosis Peripheral neuropathy Peripheral vascular disease, unspecified 11/2017 Pneumonia Right knee pain RLQ abdominal tenderness 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
== END 2022-04-14 13:28 | disposition home or self-care (01) ==
PROVIDERS: Emergency Provider Nurse Practitioner Family; PCP Family Medicine Adolescent Medicine
DX: T81.40XA Infection following a procedure, unspecified, initial encounter (principal); Z87.891 Personal history of nicotine dependence; I70.0 Atherosclerosis of aorta; I35.0 Nonrheumatic aortic (valve) stenosis; F03.90 Unspecified dementia, unspecified severity, without behavioral disturbance, psychotic disturbance, mood disturbance, and anxiety; N80.9 Endometriosis, unspecified; N60.19 Diffuse cystic mastopathy of unspecified breast; M79.7 Fibromyalgia; K21.9 Gastro-esophageal reflux disease without esophagitis; I25.2 Old myocardial infarction; E78.5 Hyperlipidemia, unspecified; I25.110 Atherosclerotic heart disease of native coronary artery with unstable angina pectoris; I34.1 Nonrheumatic mitral (valve) prolapse; M19.90 Unspecified osteoarthritis, unspecified site; M81.0 Age-related osteoporosis without current pathological fracture; Z96.82 Presence of neurostimulator; Z95.5 Presence of coronary angioplasty implant and graft; Z96.653 Presence of artificial knee joint, bilateral; Z98.49 Cataract extraction status, unspecified eye; Z96.1 Presence of intraocular lens
CPT/HCPCS: 99203; G0463

== ENCOUNTER 2022-05-12 09:51 | Emergency (ER) | payer MEDICARE, SELFPAY ==
--- NOTE | ~2022-05-12 | CT_ITS ---
EXAMINATION: CT abdomen pelvis w con DATE: 05/12/2022 11:13 INDICATION: Flank pain, hematuria TECHNIQUE: Computed tomography (CT) of the abdomen and pelvis was performed with 100 CC Omnipaque 350 intravenous contrast. Automated exposure control and iterative reconstruction technique were employe d. Exam dose: 163.94 mGy-cm total exam DLP. COMPARISON: 03/2022 right upper quadrant abdominal ultrasound examination 03/01/2022 CT abdomen pelvis FINDINGS: The lung bases are clear. Status post sternotomy. Normal heart size. No pericardial or pleu ral effusion. Numerous hepatic cysts, largest in excess of 7 cm maximal dimension. Status post cholecystectomy since 03/01/2022. There is persistent prominence of the common bile duct or pancreatic duct, pancreatic duct measuring up to 4 mm, the common bile duct measuring 9 mm or greater diameter. No pancreatic mass lesion or crys cification is detected. Normal splenic size. Normal morphology of the adrenal glands. No suspicious renal mass lesion or urinary tract calculus or hydroureteronephrosis is evident. The urinary bladder is relatively evacuated, not optimally evaluated as a result. There is extensive atherosclerotic calcification of the abdominal aorta and aortic branches but no ab dominal aortic aneurysm. No intraperitoneal or retroperitoneal or pelvic mass lesion or adenopathy or ascites is detected. There is a prominent amount fecal material within the colon. Diverticulosis of the colon; no CT evide nce of diverticulitis. No bowel obstruction or intraperitoneal free air is detected. No suspicious osteolytic or osteoblastic lesions are noted. IMPRESSION: Status post cholecystectomy since 03/01/2022 Persistent prominence of common bile duct and pancreatic duct Numerous hepatic cysts Diverticulosis of the colon Reviewed, dictated and finalized at [facility]. Reviewed, dictated and finalized at [facility]. L GLUE DRIER
[2022-05-12 09:55] VITALS: BP 104/53; PULSE 78; RESP 18; TEMP 36.4; O2SAT 97
--- NOTE | 2022-05-12 10:44 | ED.FEMALEGU ---
HPI - Female Genitourinary General Chief complaint: Urogenital-Female Stated complaint: hematuria, headache Time Seen by Provider: 05/12/22 10:24 History of Present Illness HPI Narrative: Patient is a 71-year-old female with a history of vesicoureteral reflux, kidney stones, frequent UTIs, here for evaluation of dysuria, urgency and burning for the past 3 days with development of passing small blood clots in her urine today. Patient states that she has had identical symptoms in the past when she had a urinary tract infection, including passing blood clots. She has had cystoscopies in the past and follows with Dr. Espinosa and Dr. Man. She reports fevers at home, but she recently had her gallbladder taken out and this was reportedly complicated by surgical site infection, she completed a 10-day course of antibiotics. She tells me she has chronic back pain, no worse than usual. Related Data Home Medications Medication Instructions Recorded Confirmed alirocumab 75 mg/mL subcutaneous 75 mg subcut [id number] 08/13/19 05/01/22 pen injector (Praluent Pen) fexofenadine 180 mg tablet 180 mg PO DAILY PRN Allergy 08/13/19 05/01/22 (Swapna Allergy) Symptoms nitroglycerin 0.4 mg sublingual 0.4 mg sublingual ONCE PRN Chest 08/13/19 05/01/22 tablet (Nitrostat) Pain rosuvastatin 40 mg tablet (Crestor) 40 mg PO DAILY 08/13/19 05/01/22 ketoconazole 2 % topical cream 1 applic topical DAILY PRN Rash 02/16/22 05/01/22 ondansetron 4 mg disintegrating See Rx Instructions .Route 03/27/22 05/01/22 tablet .COMPLEX PRN Nausea Allergies Allergy/AdvReac Type Severity Reaction Status Date / Time adhesive tape Allergy Unknown RASH Verified 05/01/22 13:51 clindamycin Allergy Unknown Rash Verified 05/01/22 13:51 armodafinil [From Nuvigil] AdvReac Unknown Hyperactive Verified 05/01/22 13:51 Penicillins AdvReac Unknown Rash Verified 05/01/22 13:51 Sulfa (Sulfonamide AdvReac Unknown Unknown Verified 05/01/22 13:51 Antibiotics) Review of Systems Review of Systems: Gen.: Denies fevers or chills Eyes: Denies eye pain or visual change ENT: Denies congestion Respiratory: Denies shortness of breath or cough CV: Denies chest pain or palpitations GI: Denies abdominal pain nausea, emesis or diarrhea reports burning, urgency, frequency or hematuria Musculoskeletal: Reports back pain. Denies back pain or muscle pain Neuro: Denies numbness, tingling, weakness or focal weakness Skin: Denies rash Except as documented, all other systems reviewed and negative [facility] Past Medical History Medical History Anxiety Aortic atherosclerosis 11/2017 Aortic stenosis 1.3 cm2 Brain aneurysm Status post clips Burning sensation of mouth CAD (coronary artery disease) Cataracts, bilateral Cerebral atherosclerosis Chronic fatigue Chronic pain Chronic, continuous use of opioids DDD (degenerative disc disease) Dementia with frontal lobe atrophy, short term memory loss Depression Dilated bile duct Diverticulitis Dysphagia Early satiety Endometriosis Epigastric abdominal tenderness Fibrocystic breast disease Fibromyalgia Gallbladder sludge Generalized abdominal pain GERD (gastroesophageal reflux disease) History of angina History of heart attack 1994 Hyperlipidemia Increased salivation IPMN (intraductal papillary mucinous neoplasm) Kidney stone Liver disease Migraine MVP (mitral valve prolapse) Nausea and vomiting Neuropathy Osteoarthritis Osteomyelitis Osteoporosis Peripheral neuropathy Peripheral vascular disease, unspecified 11/2017 Pneumonia Right knee pain RLQ abdominal tenderness 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 Seasonal allergies Seizure last one in Spinal cord stimulator status Thyroid nodule UTI (urinary tract infection) Surgical History Surgical History H/O breast biopsy
[2022-05-12 10:45] LABS: Basophils Percent Auto 0.3 % (0.2-1.2); Eosinophils Absolute Auto 0.1 K/mm3 (0-0.3); Eosinophils Percent Auto 1.1 % (0-4.4); Hematocrit 37.6 % (37.0-47.0); Hemoglobin 11.9 g/dL (12.0-15.0); Immature Granulocyte Absolute 0.02 K/mm3 (0.00-0.031); Immature Granulocyte Percent A 0.3 % (0-0.5); Lymphocytes Absolute Auto 0.95 K/mm3 (0.9-3.2); Lymphocytes Percent Auto 13.2 % (18.3-44.2); Mean Corpuscular HGB Conc 31.6 g/dl (32-36); Mean Corpuscular Hemoglobin 30.3 pg (26-34); Mean Corpuscular Volume 95.7 fl (80-100); Mean Platelet Volume 10.8 fl (7.4-10.4); Monocytes Absolute Auto 0.3 K/mm3 (0.1-0.6); Neutrophils Absolute Auto 5.9 K/mm3 (1.3-6.7); Neutrophils Percent Auto 81.1 % (45.5-73.1); Platelet Count Result 170 k/mm3 (150-375); Red Blood Count 3.93 M/mm3 (4.2-5.4); White Blood Count 7.2 K/mm3 (4.5-10.0)
[2022-05-12 10:57] LABS: Alanine Aminotransferase 15 U/L (6-35); Albumin Level 3.8 g/dL (3.5-5.1); Alkaline Phosphatase 61 U/L (38-126); Anion Gap 4 mmol/L (8-16); Aspartate Amino Transferase 24 U/L (14-36); Bilirubin,Total 0.3 mg/dL (0.2-1.3); Blood Urea Nitrogen 10 mg/dL (7-17); Calcium 8.5 mg/dL (8.4-10.2); Carbon Dioxide 31 mmol/L (22-30); Chloride 101 mmol/L (98-107); Estimated Glomerular Filt Rate > 60; Glucose 95 mg/dL (65-110); Sodium 136 mmol/L (137-145)
[2022-05-12 11:05] LABS: Appearance Urine Clear (Clear); Bilirubin Urine 1+ (Negative); Blood Urine 3+ (Negative); Color Urine Yellow (Yellow); Glucose Urine UA Negative (Negative); Ketones Urine Trace mg/dL (Negative); Leukocyte Esterase Ur 1+ LEU/UL (Negative); Mucus Urine Rare /lpf; Nitrate Urine Negative (Negative); Protein Urine 2+ mg/dL (Negative); RBC Urine >75 /hpf (0-2); Specific Grav Ur 1.025 (1.001-1.035); WBC Urine >75 /hpf; pH Urine 6.5 (5.0-9.0)
[2022-05-12 11:07] LABS: INR 1.1; Prothrombin Time 13.7 Seconds (11.1-14.7)
[2022-05-12 11:08] LABS: Partial Thromboplastin Time 34.2 SECONDS (22.3-36.8)
[2022-05-12 11:13] LABS: Add Urine Microscopic? YES
[2022-05-12 12:19] LABS: Alveolar/Arterial O2 Gradient 29.6 mmHg; Base Excess ABG 3.8 mEq/l (+/-2.0); Fractional Inspired Oxygen 21 %; HCO3 ABG 29.3 mEq/l (22.0-26.0); Oxygen Content ABG 15.6 %vol (16.0-22.0); Oxygen Saturation ABG 91.9 % (95.0-100.0); Oxyhemoglobin 89.2 % THb (90.0-100.0); PO2 ABG 62.7 mmHg (80.0-100.0); PO2 FiO2 Ratio Arterial Blood 2.99 %; Total Hemoglobin 12.4 g/dL (12.0-18.0); pH ABG 7.404 (7.350-7.450)
[2022-05-12 12:20] LABS: Device ROOM AIR; Modified Allen's Test Pass; Site Drawn LEFT RADIAL
== END 2022-05-12 12:52 | disposition home or self-care (01) ==
PROVIDERS: Emergency Medicine; Emergency Provider Physician Assistant; PCP Family Medicine Adolescent Medicine
DX: N30.00 Acute cystitis without hematuria (principal); I70.0 Atherosclerosis of aorta; I25.10 Atherosclerotic heart disease of native coronary artery without angina pectoris; I67.2 Cerebral atherosclerosis; I25.2 Old myocardial infarction; I73.9 Peripheral vascular disease, unspecified; I08.0 Rheumatic disorders of both mitral and aortic valves; N80.9 Endometriosis, unspecified; K76.9 Liver disease, unspecified; E78.5 Hyperlipidemia, unspecified; G31.09 Other frontotemporal neurocognitive disorder; F03.90 Unspecified dementia, unspecified severity, without behavioral disturbance, psychotic disturbance, mood disturbance, and anxiety; D13.6 Benign neoplasm of pancreas; K21.9 Gastro-esophageal reflux disease without esophagitis; G62.9 Polyneuropathy, unspecified; M79.7 Fibromyalgia; M19.90 Unspecified osteoarthritis, unspecified site; R53.82 Chronic fatigue, unspecified; M86.9 Osteomyelitis, unspecified; M81.0 Age-related osteoporosis without current pathological fracture; F41.9 Anxiety disorder, unspecified; F32.A Depression, unspecified; Z96.82 Presence of neurostimulator; Z87.01 Personal history of pneumonia (recurrent); Z95.5 Presence of coronary angioplasty implant and graft; Z96.653 Presence of artificial knee joint, bilateral; Z95.1 Presence of aortocoronary bypass graft; Z98.49 Cataract extraction status, unspecified eye; Z96.1 Presence of intraocular lens; Z87.891 Personal history of nicotine dependence
CPT/HCPCS: 36415; 36600; 74177; 80053; 81001; 82805; 85025; 85610; 85730; 87086; 99284; Q9967

== ENCOUNTER 2022-06-15 18:34 | Emergency (ER) | payer MEDICARE, SELFPAY ==
[2022-06-15 18:37] VITALS: BP 128/52; PULSE 52; RESP 16; TEMP 36.8; O2SAT 99
--- NOTE | 2022-06-15 19:51 | PC.NURSE ---
Pt's daughter asked how long the wait was. States she is going to take pt to another hospital. Pt taken out to car in wheelchair by family at this time.
== END 2022-06-15 20:09 | disposition left against medical advice (07) ==
PROVIDERS: Emergency Provider Emergency Medicine; PCP Family Medicine Adolescent Medicine
DX: R50.9 Fever, unspecified (principal)
CPT/HCPCS: 99199

== ENCOUNTER 2022-06-29 09:57 | Emergency (ER) | payer MEDICARE, SELFPAY ==
[2022-06-29] VITALS (13 sets, daily range): BP systolic 130–159; BP diastolic 45–109; PULSE 40–60; RESP 9–22; TEMP 36.8; O2SAT 95–99
--- NOTE | ~2022-06-29 | XR_ITS ---
Clinical Indication: Chest pain AP and lateral views of the chest: Comparison: 06/30/2021 Findings: The lungs are clear, without evidence of focal consolidation or pleural effusion. Cardiome diastinal silhouette is stable, status post median sternotomy. Bones and soft tissues are unremarkabl e. Stable intrathecal catheter/leads. Impression: No acute abnormality. Chronic findings, as above. Reviewed, dictated and finalized at location . ATION COUNSELOR Impression: No acute abnormality. Chronic findings, as above.
--- NOTE | 2022-06-29 10:10 | ECG_ITS ---
Measurements Intervals [place] Rate: 53 P: 39 MA: 138 QRS: 55 QRSD: 77 T: 62 QT: 437 QTc: 412 Interpretive Statements SINUS BRADYCARDIA ATRIAL PREMATURE COMPLEX BORDERLINE ECG COMPARED TO ECG 12/29/2021 16:31:21 SINUS BRADYCARDIA NOW PRESENT Electronically Signed On 06-29-2022 10:28:14 DIRECTOR OF CASEWORK by Zacarias Lucas D.O.
[2022-06-29 10:30] LABS: Basophils Percent Auto 0.6 % (0.2-1.2); Eosinophils Absolute Auto 0.2 K/mm3 (0-0.3); Eosinophils Percent Auto 3.1 % (0-4.4); Hematocrit 36.2 % (37.0-47.0); Hemoglobin 11.2 g/dL (12.0-15.0); Immature Granulocyte Absolute 0.01 K/mm3 (0.00-0.031); Immature Granulocyte Percent A 0.1 % (0-0.5); Lymphocytes Percent Auto 30.9 % (18.3-44.2); Mean Corpuscular HGB Conc 30.9 g/dl (32-36); Mean Corpuscular Hemoglobin 29.2 pg (26-34); Mean Corpuscular Volume 94.3 fl (80-100); Mean Platelet Volume 12.4 fl (7.4-10.4); Monocytes Absolute Auto 0.5 K/mm3 (0.1-0.6); Monocytes Percent Auto 7.5 % (2.6-8.5); Neutrophils Absolute Auto 3.9 K/mm3 (1.3-6.7); Neutrophils Percent Auto 57.8 % (45.5-73.1); Platelet Count Result 140 k/mm3 (150-375); Red Blood Count 3.84 M/mm3 (4.2-5.4); Red Cell Distribution Width 12.9 % (11.5-14.5); White Blood Count 6.8 K/mm3 (4.5-10.0)
[2022-06-29] MEDS: LACTATED RINGERS 1,000 ML 999 ML IV CONT (10:45)
[2022-06-29 11:04] LABS: Influenza A QL RT-PCR Negative (Negative); Influenza B QL RT-PCR Negative (Negative); RSV RNA, RT-PCR Negative (Negative); SARS-CoV-2 RNA PCR Negative
[2022-06-29 11:27] LABS: Alanine Aminotransferase 29 U/L (6-35); Albumin Level 3.6 g/dL (3.5-5.1); Alkaline Phosphatase 67 U/L (38-126); Anion Gap 3 mmol/L (8-16); Aspartate Amino Transferase 41 U/L (14-36); Bilirubin,Total 0.2 mg/dL (0.2-1.3); Blood Urea Nitrogen 12 mg/dL (7-17); Calcium 7.9 mg/dL (8.4-10.2); Carbon Dioxide 34 mmol/L (22-30); Chloride 106 mmol/L (98-107); Estimated CRCL calculation 54 ml/min; Estimated Glomerular Filt Rate > 60; Glucose 84 mg/dL (65-110); Potassium 4.1 mmol/L (3.4-5.0); Sodium 143 mmol/L (137-145)
[2022-06-29 11:38] LABS: NT Pro B Type Natriuretic Pept 1460 pg/mL (19.9-100); Troponin I < 0.012 ng/mL (0.000-0.034)
--- NOTE | 2022-06-29 12:34 | ED.CHESTPAIN ---
HPI - Chest Pain General Chief Complaint: Chest Pain Stated Complaint: CP/diarrhea Time Seen by Provider: 06/29/22 10:00 History of Present Illness HPI narrative: Patient states that since January, she has been having diarrhea, and for the past 2 weeks has been having some chest pain. Her is concerned because he feels that she has been worsening over the last few months, with decreased appetite and possible dementia, he feels that soon they may need to move into assisted living care. Patient does state that she takes MiraLAX daily, and that when she does not take MiraLAX, her diarrhea resolves, but sometimes she then becomes constipated. Related Data Home Medications Medication Instructions Recorded Confirmed alirocumab 75 mg/mL subcutaneous 75 mg subcut [id number] 08/13/19 05/01/22 pen injector (Praluent Pen) fexofenadine 180 mg tablet 180 mg PO DAILY PRN Allergy 08/13/19 05/01/22 (Swapna Allergy) Symptoms nitroglycerin 0.4 mg sublingual 0.4 mg sublingual ONCE PRN Chest 08/13/19 05/01/22 tablet (Nitrostat) Pain rosuvastatin 40 mg tablet (Crestor) 40 mg PO DAILY 08/13/19 05/01/22 ketoconazole 2 % topical cream 1 applic topical DAILY PRN Rash 02/16/22 05/01/22 ondansetron 4 mg disintegrating See Rx Instructions .Route 03/27/22 05/01/22 tablet .COMPLEX PRN Nausea Allergies Allergy/AdvReac Type Severity Reaction Status Date / Time adhesive tape Allergy Unknown RASH Verified 06/27/22 09:32 clindamycin Allergy Unknown Rash Verified 06/27/22 09:32 armodafinil [From Nuvigil] AdvReac Unknown Hyperactive Verified 06/27/22 09:32 Penicillins AdvReac Unknown Rash Verified 06/27/22 09:32 Sulfa (Sulfonamide AdvReac Unknown Unknown Verified 06/27/22 09:32 Antibiotics) Surgical Glue Allergy Intermediate Rash Uncoded 06/27/22 09:32 Review of Systems Review of Systems: CONST: No fever. HEENT: No sore throat C/V: chest pain RESP: No cough GI: decreased appetite : Occasional blood in urine M/S: No joint pain. SKIN: No rash. NEURO: Worsening memory, no focal numbness or weakness PSYCH: [No depression] [facility] Past Medical History Medical History Anxiety Aortic atherosclerosis 11/2017 Aortic stenosis 1.3 cm2 Brain aneurysm Status post clips Burning sensation of mouth CAD (coronary artery disease) Cataracts, bilateral Cerebral atherosclerosis Chronic fatigue Chronic pain Chronic, continuous use of opioids DDD (degenerative disc disease) Dementia with frontal lobe atrophy, short term memory loss Depression Dilated bile duct Diverticulitis Endometriosis Fibrocystic breast disease Fibromyalgia Gallbladder sludge GERD (gastroesophageal reflux disease) History of angina History of heart attack 1994 Hyperlipidemia IPMN (intraductal papillary mucinous neoplasm) Migraine MVP (mitral valve prolapse) Neuropathy Osteoarthritis Osteoporosis Peripheral neuropathy Peripheral vascular disease, unspecified 11/2017 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 Seasonal allergies Seizure last one in Spinal cord stimulator status Thyroid nodule Surgical History Surgical History H/O breast biopsy bilateral H/O cervical spine surgery x2, 1994, 2006 H/O dilation and curettage H/O vascular surgery to clip brain aneurysm History of bunionectomy History of cardiac catheterization History of coronary artery stent placement x2 2006 History of knee replacement, total bilateral History of repair of ACL in left knee Hx laparoscopic cholecystectomy 04-06-22 Hx of CABG x2 vessel 1994 Hx of cataract removal with insertion of prosthetic lens Hx of lumpectomy Hx of tonsillectomy Total knee replacement status Family History Family History Mother Family history of osteoarthritis Acute myocardial infarction Depression Heart disea
== END 2022-06-29 12:49 | disposition home or self-care (01) ==
PROVIDERS: Emergency Provider Emergency Medicine; PCP Family Medicine Adolescent Medicine
DX: R19.7 Diarrhea, unspecified (principal); R63.0 Anorexia; R07.9 Chest pain, unspecified; Z20.822 Contact with and (suspected) exposure to COVID-19; I35.0 Nonrheumatic aortic (valve) stenosis; I70.0 Atherosclerosis of aorta; I25.10 Atherosclerotic heart disease of native coronary artery without angina pectoris; I67.2 Cerebral atherosclerosis; E78.5 Hyperlipidemia, unspecified; N80.9 Endometriosis, unspecified; I25.2 Old myocardial infarction; I34.1 Nonrheumatic mitral (valve) prolapse; I73.9 Peripheral vascular disease, unspecified; G62.9 Polyneuropathy, unspecified; R53.82 Chronic fatigue, unspecified; F03.90 Unspecified dementia, unspecified severity, without behavioral disturbance, psychotic disturbance, mood disturbance, and anxiety; K21.9 Gastro-esophageal reflux disease without esophagitis; M79.7 Fibromyalgia; M81.0 Age-related osteoporosis without current pathological fracture; M19.90 Unspecified osteoarthritis, unspecified site; F41.9 Anxiety disorder, unspecified; F32.A Depression, unspecified; Z96.82 Presence of neurostimulator; Z95.5 Presence of coronary angioplasty implant and graft; Z96.653 Presence of artificial knee joint, bilateral; Z95.1 Presence of aortocoronary bypass graft; Z98.49 Cataract extraction status, unspecified eye; Z96.1 Presence of intraocular lens; Z87.891 Personal history of nicotine dependence; Z68.22 Body mass index [BMI] 22.0-22.9, adult
CPT/HCPCS: 36415; 71046; 80053; 83880; 84484; 85025; 87637; 93005; 96360; 96361; 99284; J7120

== ENCOUNTER 2022-07-20 09:49 | Outpatient (CLI) | payer MEDICARE, SELFPAY ==
--- NOTE | ~2022-07-20 | XR_ITS ---
Supine and upright views of the abdomen Clinical history: Hematuria COMPARISON: 11/29/2017 Findings: Bowel gas pattern is nonspecific. Cholecystectomy clips noted. No evidence for obstruction or free air. No abnormal mass lesion or calcification is seen. Osseous structures are intact. Stable electronic medical coder over the left pelvis. Impression: No definite renal stone identified. Reviewed, dictated and finalized at [facility]. ER FITTER Impression: No definite renal stone identified.
--- NOTE | ~2022-07-20 | CT_ITS ---
CT of the Abdomen and Pelvis: Indication: Hematuria Technique: 2.5 mm axial scans were obtained through the abdomen and pelvis prior to and following in travenous administration of 130 cc of Omnipaque 350. Dose reduction technique was used on this scan b y utilizing automated exposure control and iterative reconstruction technique. The dose-length produc t (DLP) was 431.58 mGy-cm. COMPARISON: 05/12/2022 Findings: Scans through the lung bases are unremarkable. Multiple hepatic cysts are present. Dilated common bile duct and mild intrahepatic biliary dilatation is similar to prior exam, possibly related to prior cholecystectomy. The spleen, pancreas, adrenals and kidneys are within normal limits. Ureters are nearly completely opacified, and unremarkable. No e vidence of aortic aneurysm. No lymphadenopathy. No bowel obstruction or bowel wall thickening. There is no evidence to suggest acute appendicitis. Images through the pelvis were performed. Urinary bladder unremarkable. No adnexal mass seen. No asci casey. Impression: No etiology for hematuria identified. Intrahepatic and extrahepatic biliary dilatation is similar to prior exam, presumably related to prio r cholecystectomy. Correlate clinically and with LFTs, as indicated. Multiple hepatic cysts, unchanged. Reviewed, dictated and finalized at location . [facility] [employer] Impression: No etiology for hematuria identified. Intrahepatic and extrahepatic biliary dilatation is similar to prior exam, pres umably related to prior cholecystectomy. Correlate clinically and with LFTs, as indicated. Multiple hepatic cysts, unchanged.
== END 2022-07-20 09:50 | disposition home or self-care (01) ==
PROVIDERS: PCP Family Medicine Adolescent Medicine; Visit Provider Nurse Practitioner Family
DX: R31.0 Gross hematuria (principal); K82.8 Other specified diseases of gallbladder; K76.89 Other specified diseases of liver
CPT/HCPCS: 74018; 74178; Q9967

== ENCOUNTER 2022-08-03 04:49 | Emergency (ER) | payer MEDICARE, SELFPAY ==
--- NOTE | ~2022-08-03 | CT_ITS ---
Clinical Indication: Hemoptysis CT Scan of the Chest with Contrast: Technique: Contiguous sections were acquired throughout the chest after intravenous administration of 100 cc of Omnipaque 350. Dose reduction technique was used on this scan by utilizing automated expos ure control and iterative reconstruction technique. The dose-length product (DLP) was 153.60 mGy-cm. Findings: There is no evidence of any significant mediastinal, hilar or axillary lymphadenopathy. There is no f illing defect in the pulmonary arterial tree to suggest pulmonary embolus. There is no evidence of ao rtic dissection or aneurysm. There is no evidence of pleural or pericardial effusion. The lungs are clear. No pulmonary nodules or infiltrates are noted. Images through the upper abdomen reveal multiple hepatic cysts. Impression: No evidence of pulmonary embolus, aortic dissection, or aortic aneurysm. Clear lungs. Reviewed, dictated and finalized at [facility]. ENT ASSISTANCE COUNSELOR Impression: No evidence of pulmonary embolus, aortic dissection, or aortic aneurysm. Clear lungs.
--- NOTE | ~2022-08-03 | XR_ITS ---
Portable chest x-ray Comparison: 06/29/2022 Clinical History: Hemoptysis Findings: Lungs are clear, without focal consolidation or pleural effusion. Cardiomediastinal silho uette is stable, status post median sternotomy. Intrathecal catheter present. Impression: Clear lungs. Reviewed, dictated and finalized at [facility]. ER BUYER Impression: Clear lungs.
[2022-08-03 04:49] VITALS: BP 134/54; PULSE 63; RESP 16; TEMP 36.8; O2SAT 98
[2022-08-03 06:04] LABS: Basophils Percent Auto 0.3 % (0.2-1.2); Eosinophils Absolute Auto 0.1 K/mm3 (0-0.3); Eosinophils Percent Auto 1.8 % (0-4.4); Hematocrit 38.9 % (37.0-47.0); Hemoglobin 12.2 g/dL (12.0-15.0); Immature Granulocyte Absolute 0.02 K/mm3 (0.00-0.031); Immature Granulocyte Percent A 0.3 % (0-0.5); Lymphocytes Absolute Auto 1.03 K/mm3 (0.9-3.2); Lymphocytes Percent Auto 12.9 % (18.3-44.2); Mean Corpuscular HGB Conc 31.4 g/dl (32-36); Mean Corpuscular Volume 92.4 fl (80-100); Mean Platelet Volume 11.1 fl (7.4-10.4); Monocytes Absolute Auto 0.4 K/mm3 (0.1-0.6); Monocytes Percent Auto 4.9 % (2.6-8.5); Neutrophils Absolute Auto 6.4 K/mm3 (1.3-6.7); Neutrophils Percent Auto 79.8 % (45.5-73.1); Platelet Count Result 141 k/mm3 (150-375); Red Blood Count 4.21 M/mm3 (4.2-5.4)
[2022-08-03 06:20] VITALS: PULSE 63; RESP 18; O2SAT 96
[2022-08-03 06:20] LABS: Alanine Aminotransferase 31 U/L (6-35); Alkaline Phosphatase 68 U/L (38-126); Anion Gap 4 mmol/L (8-16); Aspartate Amino Transferase 46 U/L (14-36); Bilirubin,Total 0.6 mg/dL (0.2-1.3); Blood Urea Nitrogen 13 mg/dL (7-17); Calcium 8.5 mg/dL (8.4-10.2); Carbon Dioxide 33 mmol/L (22-30); Chloride 104 mmol/L (98-107); Estimated CRCL calculation 63 ml/min; Estimated Glomerular Filt Rate > 60; Glucose 93 mg/dL (65-110); Potassium 3.9 mmol/L (3.4-5.0); Sodium 141 mmol/L (137-145)
[2022-08-03 06:26] LABS: INR 1.1
[2022-08-03 06:27] LABS: Partial Thromboplastin Time 33.9 SECONDS (22.3-36.8)
--- NOTE | 2022-08-03 07:14 | ED.GENADULT ---
HPI - General Adult General Chief complaint: Unspecified Stated complaint: coughing up blood w/ post dental work Time Seen by Provider: 08/03/22 07:09 Source: patient Mode of arrival: ambulatory Limitations: no limitations History of Present Illness HPI narrative: Patient is a 71 yo female with a history of HTN, CAD, HLD, presenting to the ER for evaluation of blood-tinged sputum. Patient states that she was brushing her teeth this morning when she had blood-tinged sputum but is also worried she could have been coughing up blood. She reports cough without shortness of breath. She denies chest pain. She denies lightheadedness, dizziness. She denies current bleeding from the gums. She states that she has been having some dental work done, and has been seeing a dentist who prescribed her clindamycin to prevent any dental infection. She has been taking that without any diarrhea, abdominal pain or indigestion. Patient denies any rash or bruising. She denies recent fall or injury. She denies fever, chills, myalgias. Patient denies history of anticoagulation. Related Data Home Medications Medication Instructions Recorded Confirmed alirocumab 75 mg/mL subcutaneous 75 mg subcut [id number] 08/13/19 07/17/22 pen injector (Praluent Pen) fexofenadine 180 mg tablet 180 mg PO DAILY PRN Allergy 08/13/19 07/17/22 (Swapna Allergy) Symptoms nitroglycerin 0.4 mg sublingual 0.4 mg sublingual ONCE PRN Chest 08/13/19 07/17/22 tablet (Nitrostat) Pain rosuvastatin 40 mg tablet (Crestor) 40 mg PO DAILY 08/13/19 07/17/22 ketoconazole 2 % topical cream 1 applic topical DAILY PRN Rash 02/16/22 07/17/22 Allergies Allergy/AdvReac Type Severity Reaction Status Date / Time adhesive tape Allergy Unknown RASH Verified 07/17/22 12:48 clindamycin Allergy Unknown Rash Verified 07/17/22 12:48 armodafinil [From Nuvigil] AdvReac Unknown Hyperactive Verified 07/17/22 12:48 Penicillins AdvReac Unknown Rash Verified 07/17/22 12:48 Sulfa (Sulfonamide AdvReac Unknown Unknown Verified 07/17/22 12:48 Antibiotics) Surgical Glue Allergy Intermediate Rash Uncoded 07/17/22 12:48 Review of Systems Review of Systems: CONSTITUTIONAL: Denies fever, chills, or sweats. ENT: Denies rhinorrhea, congestion, sore throat, or otalgia. CARDIOVASCULAR: Denies chest pain, palpitations, or edema. RESPIRATORY: Reports cough without dyspnea GASTROINTESTINAL: Denies abdominal pain, nausea, vomiting, or diarrhea. GENITOURINARY: Denies dysuria or hematuria. SKIN: Denies rash or itching. MUSCULOSKELETAL: Denies back pain, joint pain, or myalgia. NEUROLOGIC: Denies headache, numbness, or weakness. [facility] Past Medical History Medical History Anxiety Aortic atherosclerosis 11/2017 Aortic stenosis 1.3 cm2 Brain aneurysm Status post clips Burning sensation of mouth CAD (coronary artery disease) Cataracts, bilateral Cerebral atherosclerosis Chronic fatigue Chronic pain Chronic, continuous use of opioids DDD (degenerative disc disease) Dementia with frontal lobe atrophy, short term memory loss Depression Dilated bile duct Diverticulitis Endometriosis Fibrocystic breast disease Fibromyalgia Gallbladder sludge GERD (gastroesophageal reflux disease) History of angina History of heart attack 1994 Hyperlipidemia IPMN (intraductal papillary mucinous neoplasm) Migraine MVP (mitral valve prolapse) Neuropathy Osteoarthritis Osteoporosis Peripheral neuropathy Peripheral vascular disease, unspecified 11/2017 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 Seasonal allergies Seizure last one in Spinal cord stimulator status Thyroid nodule Surgical History Surgical History H/O breast biopsy bilateral H/O cervical spine surgery x2, 1994, 2006 H/O dilation and curettage H/O vascular surgery to clip brain aneurysm History of [facility]
[2022-08-03 08:47] VITALS: BP 121/80; PULSE 91; RESP 18; O2SAT 98
== END 2022-08-03 08:48 | disposition home or self-care (01) ==
PROVIDERS: Emergency Medicine; Emergency Provider Emergency Medicine; PCP Family Medicine Adolescent Medicine
DX: R04.2 Hemoptysis (principal); I10 Essential (primary) hypertension; I25.10 Atherosclerotic heart disease of native coronary artery without angina pectoris; E78.5 Hyperlipidemia, unspecified; I35.0 Nonrheumatic aortic (valve) stenosis; I25.2 Old myocardial infarction; I67.2 Cerebral atherosclerosis; I73.9 Peripheral vascular disease, unspecified; I34.1 Nonrheumatic mitral (valve) prolapse; G31.09 Other frontotemporal neurocognitive disorder; F02.80 Dementia in other diseases classified elsewhere, unspecified severity, without behavioral disturbance, psychotic disturbance, mood disturbance, and anxiety; R41.3 Other amnesia; N80.9 Endometriosis, unspecified; M79.7 Fibromyalgia; G62.9 Polyneuropathy, unspecified; K21.9 Gastro-esophageal reflux disease without esophagitis; Z95.5 Presence of coronary angioplasty implant and graft; Z96.653 Presence of artificial knee joint, bilateral; Z95.1 Presence of aortocoronary bypass graft; Z98.49 Cataract extraction status, unspecified eye; Z96.1 Presence of intraocular lens; Z87.891 Personal history of nicotine dependence
CPT/HCPCS: 36415; 71045; 71275; 80053; 85025; 85610; 85730; 99284; Q9967

== ENCOUNTER → 2022-10-02 15:00 | Outpatient (CLI) | payer MEDICARE, SELFPAY ==
--- NOTE | ~2022-10-02 | XR_ITS ---
EXAMINATION: XR lumbar spine 2-3V DATE: 10/02/2022 15:57 INDICATION: Lumbar radiculopathy. TECHNIQUE: 3 views of lumbar spine were obtained. COMPARISON: Lumbar spine radiographs 02/01/2022, CT abdomen and pelvis 07/20/2022 FINDINGS: L5 is a transitional segment. There are small ribs at T12. There is 8 degrees dextrocurvatu re of lumbar spine. Vertebral body heights are normal. There is mildly decreased disc height at L1-L2 , moderately decreased disc height at L2-L3, mildly decreased disc height at L3-L4, and moderately de creased disc height at L4-L5. There is multilevel facet joint osteoarthritis, severe in lower lumbar spine. IMPRESSION: 1. Moderate lumbar spondylosis. Reviewed, dictated and finalized at location A.
--- NOTE | ~2022-10-02 | XR_ITS ---
EXAMINATION:XR_CERV2-3V_CR DATE: 10/02/2022 15:57 INDICATION: Neck pain TECHNIQUE: AP, lateral, and odontoid views of the cervical spine are provided. COMPARISON: None FINDINGS: There are changes of anterior fusion procedure from C4 through C6. Bone alignment is normal . The odontoid process is intact. No fracture is identified. There is multilevel moderate facet joint osteoarthritis. The vertebral body heights are maintained. There is moderate loss of intervertebral disc space height at C3-4. Prevertebral soft tissues are normal. IMPRESSION: 1. Surgical changes and moderate spondylosis without acute findings. Reviewed, dictated and finalized at location L.
== END ==
PROVIDERS: PCP Family Medicine Adolescent Medicine; Visit Provider Nurse Practitioner Family
DX: M54.16 Radiculopathy, lumbar region (principal); M43.06 Spondylolysis, lumbar region; Z98.890 Other specified postprocedural states
CPT/HCPCS: 72040; 72100

== ENCOUNTER 2022-10-17 13:51 | Emergency (ER) | payer MEDICARE, SELFPAY ==
[2022-10-17] VITALS (11 sets, daily range): BP systolic 119–145; BP diastolic 44–84; PULSE 52–118; RESP 11–20; TEMP 37.2; O2SAT 94–99
--- NOTE | ~2022-10-17 | CT_ITS ---
EXAMINATION: CT cervical spine wo con DATE: 10/17/2022 16:58 INDICATION: FALL TECHNIQUE: Computed tomography (CT) of the cervical spine was performed without intravenous contrast. Automated exposure control and iterative reconstruction technique were employed. The dose-length pro duct was 128.88 mGy-cm. COMPARISON: 08/25/2019. FINDINGS: Vertebral Body Alignment: Intact. Craniocervical and atlantoaxial alignment: Moderate degenerative change with pannus. Alignment intact . Osseous structures/fracture: No evidence of a lytic or blastic process in the visualized spine. No e vidence of acute fracture. ACDF hardware spanning C4-C6, without complication. Cervical soft tissues: The paraspinal soft tissues planes are maintained. Small volume bilateral mast oid fluid collections. Aortic arch calcification. Degenerative changes: Degenerative changes, without severe neural foraminal or central canal narrowin g. IMPRESSION: No acute fracture or traumatic malalignment in the cervical spine. Reviewed, dictated and finalized at location K.
--- NOTE | ~2022-10-17 | XR_ITS ---
EXAM: XR lumbar spine min 4V DATE: 10/17/2022 17:14 HISTORY: fall . COMPARISON: 10/02/2022. FINDINGS: Osteopenia. Left sided stimulator pack, leads terminate out of the [id number]. Cholecys tectomy clips. Surgical clips over the GE junction. 4 nonrib-bearing lumbar-type vertebral bodies, wi th hypoplastic ribs at T12 and bilateral sacralization of L5. Rudimentary disc at L5-S1. Multilevel m ild-moderate degenerative disc disease. Multilevel severe facet arthropathy. Aortic calcifications wi thout aneurysm. Vertebral body heights are maintained. Normal alignment. No pars defect. IMPRESSION: No acute fracture or traumatic malalignment detected in the lumbar spine. Reviewed, dictated and finalized at location K.
--- NOTE | ~2022-10-17 | CT_ITS ---
EXAMINATION: CT brain wo con DATE: 10/17/2022 16:56 INDICATION: FALL . TECHNIQUE: Computed tomography (CT) of the head was performed without intravenous contrast. The mA wa s adjusted according to patient size. Iterative reconstruction technique was employed. The dose-lengt h product was 605.33 mGy-cm. COMPARISON: 12/29/2021. FINDINGS: No acute intracranial hemorrhage or extra-axial fluid collection. No hydrocephalus, mass, or herniation. No acute ischemic infarct. Unremarkable dural venous sinus attenuation. No acute osseous abnormality. Retention cyst/polyp and fluid in the left sphenoid sinus, bilateral mastoid fluid, the remaining aer ated spaces are clear. Focal chronic encephalomalacia left temporal lobe. Prior left temporal craniotomy. Aneurysm clip in t he suprasellar cistern. Atherosclerotic intracranial calcification. Bilateral lens replacements. IMPRESSION: No acute intracranial process. Reviewed, dictated and finalized at location K.
--- NOTE | 2022-10-17 14:13 | ECG_ITS ---
Measurements Intervals [place] Rate: 63 P: 26 MA: 138 QRS: 54 QRSD: 128 T: 70 QT: 419 QTc: 432 Interpretive Statements SINUS RHYTHM BORDERLINE ST-T WAVE ABNORMALITY- HIGH LATERAL LEADS BASELINE ARTIFACT- I, II, III, AVR, AVL, AVF, V3, V5 BORDERLINE ECG COMPARED TO ECG 06/29/2022 10:01:27 HEART RATE HAS INCREASED Electronically Signed On 10-17-2022 14:17:05 CDT by Zacarias Lucas D.O.
[2022-10-17 14:25] LABS: Basophils Percent Auto 0.2 % (0.2-1.2); Eosinophils Absolute Auto 0.1 K/mm3 (0-0.3); Eosinophils Percent Auto 2.3 % (0-4.4); Hematocrit 39.2 % (37.0-47.0); Immature Granulocyte Absolute 0.01 K/mm3 (0.00-0.031); Immature Granulocyte Percent A 0.2 % (0-0.5); Lymphocytes Absolute Auto 1.84 K/mm3 (0.9-3.2); Mean Corpuscular HGB Conc 30.6 g/dl (32-36); Mean Corpuscular Hemoglobin 27.9 pg (26-34); Mean Corpuscular Volume 91.2 fl (80-100); Mean Platelet Volume 11.4 fl (7.4-10.4); Monocytes Absolute Auto 0.4 K/mm3 (0.1-0.6); Monocytes Percent Auto 6.6 % (2.6-8.5); Neutrophils Absolute Auto 3.2 K/mm3 (1.3-6.7); Neutrophils Percent Auto 57.7 % (45.5-73.1); Platelet Count Result 141 k/mm3 (150-375); Red Cell Distribution Width 14.7 % (11.5-14.5); White Blood Count 5.6 K/mm3 (4.5-10.0)
[2022-10-17 14:36] LABS: Alanine Aminotransferase 25 U/L (6-35); Albumin Level 4.3 g/dL (3.5-5.1); Alkaline Phosphatase 90 U/L (38-126); Anion Gap 1 mmol/L (8-16); Aspartate Amino Transferase 46 U/L (14-36); Bilirubin,Total 0.5 mg/dL (0.2-1.3); Blood Urea Nitrogen 17 mg/dL (7-17); Carbon Dioxide 39 mmol/L (22-30); Chloride 100 mmol/L (98-107); Estimated Glomerular Filt Rate > 60; Glucose 119 mg/dL (65-110); INR 0.9; Potassium 4.2 mmol/L (3.4-5.0); Prothrombin Time 12.7 Seconds (11.1-14.7); Sodium 140 mmol/L (137-145)
--- NOTE | 2022-10-17 18:25 | ED.GENADULT ---
HPI - General Adult General Chief complaint: Weakness Stated complaint: frequent falls Time Seen by Provider: 10/17/22 15:42 Source: patient Mode of arrival: ambulatory Limitations: no limitations History of Present Illness HPI narrative: 71-year-old with a history of chronic back pain, neuropathy here with complaints of falls. Patient states that she fell twice last week. She also is seeing her pain management doctor. She states her feet and legs get painful at times. She denies any headache or chest pain at this time. Complains of neck and low back pain. She states that she has been diagnosed with neuropathy in several years ago after she developed viral meningitis. Onset (ago): week(s) (2) Location: back Radiation: non-radiation Severity: moderate Quality: aching Pain Consistency: constant Relieving factors: none Exacerbating factors: none Associated symptoms: denies other symptoms Related Data Home Medications Medication Instructions Recorded Confirmed alirocumab 75 mg/mL subcutaneous 75 mg subcut [id number] 08/13/19 10/09/22 pen injector (Praluent Pen) fexofenadine 180 mg tablet 180 mg PO DAILY PRN Allergy 08/13/19 10/09/22 (Swapna Allergy) Symptoms nitroglycerin 0.4 mg sublingual 0.4 mg sublingual ONCE PRN Chest 08/13/19 10/09/22 tablet (Nitrostat) Pain rosuvastatin 40 mg tablet (Crestor) 40 mg PO DAILY 08/13/19 10/09/22 ketoconazole 2 % topical cream 1 applic topical DAILY PRN Rash 02/16/22 10/09/22 Allergies Allergy/AdvReac Type Severity Reaction Status Date / Time adhesive tape Allergy Unknown RASH Verified 10/09/22 13:21 clindamycin Allergy Unknown Rash Verified 10/09/22 13:21 armodafinil [From Nuvigil] AdvReac Unknown Hyperactive Verified 10/09/22 13:21 Penicillins AdvReac Unknown Rash Verified 10/09/22 13:21 Sulfa (Sulfonamide AdvReac Unknown Unknown Verified 10/09/22 13:21 Antibiotics) Surgical Glue Allergy Intermediate Rash Uncoded 10/09/22 13:21 Review of Systems Review of Systems: All systems reviewed & are unremarkable except as noted in HPI and below Constitutional: Constitutional: Reports no additional constitutional complaints Eyes: Eyes: Reports no additional eye complaints ENT: Reports system reviewed and no additional complaints, except as documented Cardiovascular: Cardiovascular: Reports no additional cardiovascular complaints Respiratory: Respiratory: Reports no additional respiratory complaints Gastrointestinal: Gastrointestinal: Reports no additional gastrointestinal complaints Musculoskeletal: Musculoskeletal: Reports as per HPI Integumentary/Breasts: Skin/Breast: Reports system reviewed and no additional complaints, except as docu Neurologic: Reports system reviewed and no additional complaints, except as documented [facility] Past Medical History Medical History Anxiety Aortic atherosclerosis 11/2017 Aortic stenosis 1.3 cm2 Brain aneurysm Status post clips Burning sensation of mouth CAD (coronary artery disease) Cataracts, bilateral Cerebral atherosclerosis Chronic fatigue Chronic pain Chronic, continuous use of opioids DDD (degenerative disc disease) Dementia with frontal lobe atrophy, short term memory loss Depression Dilated bile duct Diverticulitis Endometriosis Fibrocystic breast disease Fibromyalgia Gallbladder sludge GERD (gastroesophageal reflux disease) History of angina History of heart attack 1994 Hyperlipidemia IPMN (intraductal papillary mucinous neoplasm) Migraine MVP (mitral valve prolapse) Neuropathy Osteoarthritis Osteoporosis Peripheral neuropathy Peripheral vascular disease, unspecified 11/2017 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 Seasonal allergies Seizure last one in Spinal cord stimulator status Thyroid nodule Surgical History Surgical History H/O breast biopsy bilateral
== END 2022-10-17 18:44 | disposition home or self-care (01) ==
PROVIDERS: Preventive Medicine Aerospace Medicine; Emergency Provider Family Medicine; PCP Family Medicine Adolescent Medicine
DX: G62.9 Polyneuropathy, unspecified (principal); R29.6 Repeated falls; Z91.81 History of falling; I70.0 Atherosclerosis of aorta; I35.0 Nonrheumatic aortic (valve) stenosis; I25.10 Atherosclerotic heart disease of native coronary artery without angina pectoris; I67.2 Cerebral atherosclerosis; I73.9 Peripheral vascular disease, unspecified; I25.2 Old myocardial infarction; I34.1 Nonrheumatic mitral (valve) prolapse; E78.5 Hyperlipidemia, unspecified; G31.09 Other frontotemporal neurocognitive disorder; F02.80 Dementia in other diseases classified elsewhere, unspecified severity, without behavioral disturbance, psychotic disturbance, mood disturbance, and anxiety; N80.9 Endometriosis, unspecified; K21.9 Gastro-esophageal reflux disease without esophagitis; M79.7 Fibromyalgia; M19.90 Unspecified osteoarthritis, unspecified site; M81.0 Age-related osteoporosis without current pathological fracture; Z95.5 Presence of coronary angioplasty implant and graft; Z96.653 Presence of artificial knee joint, bilateral; Z95.1 Presence of aortocoronary bypass graft; Z98.49 Cataract extraction status, unspecified eye; Z96.1 Presence of intraocular lens; Z87.891 Personal history of nicotine dependence; R94.31 Abnormal electrocardiogram [ECG] [EKG]
CPT/HCPCS: 36415; 70450; 72110; 72125; 80053; 85025; 85610; 93005; 99284

== ENCOUNTER 2022-11-02 12:50 | Outpatient (CLI) | payer MEDICARE, SELFPAY ==
--- NOTE | ~2022-11-02 | US_ITS ---
EXAMINATION: US carotid duplex BI DATE: 11/02/2022 14:52 INDICATION: Dizziness and giddiness TECHNIQUE: Grayscale, color Doppler, and pulsed Doppler images of the cervical carotid arteries were obtained. The degree of vessel stenosis is placed in one of the following categories: normal, <50%, 5 0-69%, >=70% but less than near-occlusion, near-occlusion, or total occlusion. Note that percent sten osis relative to normal distal artery lumen diameter is indirectly measured from velocity measurement s as described by Kameron, et al. Radiology 2003; 229:340-346. Notes: Normal: Peak systolic velocity <125 centimeters/sec and no plaque <50%. Peak systolic velocity <125 ( EDV <40; ICA/CCA PSV ratio <2.0; used these factors only a tandem lesions or low cardiac output or co ntralateral disease) 50-69 %: PSV 125-230 (EDV 40-100; ratio 2-4) >= 70% but less than near occlusion: PSV greater than 230 (EDV > 100; ratio> 4.0) Near Occlusion: PSV that is variable; markedly narrowed lumen Occlusion: Absent flow on color/spectral Doppler and no lumen on cunha scale. COMPARISON: None. FINDINGS: RIGHT: The right common carotid artery (CCA) peak systolic velocity (PSV) is 78 cm/s. The right internal car otid artery (ICA) PSV is 69 cm/s. The right ICA end-diastolic velocity (EDV) is 13 cm/s. The right IC A/CCA PSV ratio is 0.9. The external carotid artery (ECA) PSV is 59 cm/s. There is antegrade flow in the right vertebral artery. LEFT: The left CCA PSV is 62 cm/s. The left ICA PSV is 59 cm/s. The left ICA EDV is 10 cm/s. The left ICA/C CA PSV ratio is 1.0. The ECA PSV is 58 cm/s. There is antegrade flow in the left vertebral artery. IMPRESSION: 1. Less than 50% stenosis in the right internal carotid artery by sonographic criteria. 2. Less than 50% stenosis in the left internal carotid artery by sonographic criteria. Reviewed, dictated and finalized at location L. IMPRESSION: 1. Less than 50% stenosis in the right internal carotid artery by sonographic c vivian. 2. Less than 50% stenosis in the left internal carotid artery by sonographic deborah roberson.
== END 2022-11-02 12:51 | disposition home or self-care (01) ==
PROVIDERS: PCP Family Medicine Adolescent Medicine; Visit Provider Nurse Practitioner Family
DX: R42 Dizziness and giddiness (principal); I25.10 Atherosclerotic heart disease of native coronary artery without angina pectoris; I65.23 Occlusion and stenosis of bilateral carotid arteries
CPT/HCPCS: 93880

== ENCOUNTER → 2022-11-29 14:15 | Outpatient (CLI) | payer MEDICARE, SELFPAY ==
--- NOTE | ~2022-11-29 | MM_ITS ---
EXAMINATION: MM screening daniel BI w aruna HISTORY: Screening mammogram TECHNIQUE: Craniocaudal and mediolateral oblique 3-D tomosynthesis images were obtained and synthetic 2-D images were generated. Bilateral rotated lateral CC views. CAD analysis was submitted and interp reted. COMPARISON: 10/26/2017, 05/15/2016 bilateral screening mammogram examinations BREAST PARENCHYMAL COMPOSITION: FINDINGS: There is no evidence of suspicious mass, calcification, or architectural distortion to sugg est malignancy in either breast. There has been no suspicious interval change. IMPRESSION: 1. No mammographic evidence of malignancy. 2. Recommend routine screening mammography in one year. BI-RADS Category 1: Negative Reviewed, dictated and finalized at location A.
== END ==
PROVIDERS: PCP Family Medicine Adolescent Medicine; Visit Provider Family Medicine Adolescent Medicine
DX: Z12.31 Encounter for screening mammogram for malignant neoplasm of breast (principal)
CPT/HCPCS: 77063; 77067

== ENCOUNTER 2023-02-21 01:07 | Day surgery (SDC) | payer MEDICARE, SELFPAY ==
[2023-02-15 13:33] VITALS: BMI 22.6
--- NOTE | 2023-02-15 13:55 | PC.NURSE ---
Report to the Outpatient Waiting Room, entrance under the green pavilion located off [facility], at time __6:00AM on date __02/21/23 . Planned Procedure Time: __7:30AM . Time changes happen often and if your time is changed the preop area will call you the afternoon before. - You and your visitor will be asked to self-screen and do not enter if you have any COVID symptoms. - A mask is optional within the hospital at this time. Patients may have clear liquids (water, carbonated beverages, clear teas, apple juice) until 3 hours prior to surgery with a maximum of 20 ounces. - No food from midnight until time of surgery Take the following medications with a SIP of water the morning of surgery: __DULOXETINE, GABAPENTIN; AND ALPRAZOLAM, MORPHINE, ZOFRAN OR TRAMADOL NEEDED DO NOT STOP ANY OF YOUR OTHER PRESCRIPTION MEDICATIONS PRIOR TO SURGERY ?EXCEPT THE FOLLOWING Medications to discontinue per physician __HOLD ALL VITAMINS/SUPPLEMENTS 3 DAYS PRE-OP Date to take last dose____02/17/23 Please no make-up, nail sammarinese, hairspray, perfume, deodorant, or body powder the day of surgery. No jewelry (including any body piercings) or valuables the day of surgery, leave them at home. Please take a shower or bath the night before, or the morning of, surgery with an antibacterial soap. Wear comfortable, loose fitting clothing. Children are encouraged to wear pajamas. - Jewelry must be removed prior to entering the operating room. Rings and piercings that are not removed may be cut off. - The hospital will not accept responsibility for valuables. - Please leave all valuables, including medications, at home the day of surgery. If you are going home after surgery, a licensed industrial tractor driver must drive you home. - NO public transportation without another adult if you receive anesthesia. - We recommend that an adult stay with you for 24 hours following discharge. - We also recommend that you do not drive, make important decision, drink alcoholic beverages, or take any drugs that were not prescribed by your health care provider for at least 24 hours after your discharge time. Follow any additional instructions given to you from your surgeon. If you or anyone in your household have experienced Covid symptoms in the past week, please notify your surgeon or the nurse liaison at the phone number below for possible testing. Telephone instructions given to __PATIENT and asked if any additional questions and then verbalized understanding. Patient advised to call surgeon office or pre surgery nurse liaison [phone] if any additional questions.
[2023-02-21] VITALS (32 sets, daily range): BP systolic 109–169; BP diastolic 43–75; PULSE 52–94; RESP 9–20; TEMP 36.1–37.5; O2SAT 88–100
--- NOTE | ~2023-02-21 | XR_ITS ---
EXAMINATION: XR chest 1V portable INDICATION: Hypoxia TECHNIQUE: Portable AP chest at 2152 hours COMPARISON: 08/03/2022 FINDINGS: There are minimal airspace opacities of the lung bases, left greater than right. No pleural effusion or pneumothorax. Median sternotomy wires and mediastinal surgical clips are seen, likely fr om prior coronary artery bypass grafting. The heart size is upper limits of normal. The gallbladder i s surgically absent. There is mild enlargement of the common bile duct and central intrahepatic ducts which is likely due to post cholecystectomy state. There are changes of fusion procedure in the cerv ical spine. IMPRESSION: 1. Minimal bibasilar airspace opacities, consistent with atelectasis versus pneumonia. Reviewed, dictated and finalized at location [facility]. IMPRESSION: 1. Minimal bibasilar airspace opacities, consistent with atelectasis versus pne umonia.
--- NOTE | 2023-02-21 07:05 | WPDANESEPPF ---
Anes - Initial Pre Proc Eval Procedure: Operation Date: 02/21/23 07:30 Proposed Procedures p Multiple Tooth Extractions #4, #5, #6, #7, #8, #9, #10, #11, #12, #13, #21, #22, #23, #24, #25, #26,#27,#28,#29 - Bipin Sanders DMD Date/Time: 02/21/23 07:05 Surgeon: Bipin Sanders DMD Pre Op Diagnosis: Dental Caries #4 through #13, #21 through 29 ) Patient Data Age: 72 Gender: F Height: 1.57 m Weight: 56 kg Allergies Allergy/AdvReac Type Severity Reaction Status Date / Time adhesive tape Allergy Unknown RASH, Verified 02/21/23 06:33 REDNESS clindamycin Allergy Unknown Rash Verified 02/21/23 06:33 armodafinil [From Nuvigil] AdvReac Unknown Hyperactive Verified 02/21/23 06:33 Penicillins AdvReac Unknown Rash Verified 02/21/23 06:33 Sulfa (Sulfonamide AdvReac Unknown RASH, Verified 02/21/23 06:33 Antibiotics) REDNESS, BURNING Surgical Glue Allergy Intermediate Rash Uncoded 02/21/23 06:33 Home Medications Medication Instructions Recorded Confirmed Type alirocumab 75 mg/mL subcutaneous 75 mg subcut [id number] 08/13/19 02/15/23 History pen injector (Praluent Pen) fexofenadine 180 mg tablet 180 mg PO DAILY PRN Allergy 08/13/19 02/15/23 History (Swapna Allergy) Symptoms nitroglycerin 0.4 mg sublingual 0.4 mg sublingual ONCE PRN Chest 08/13/19 02/15/23 History tablet (Nitrostat) Pain rosuvastatin 40 mg tablet (Crestor) 40 mg PO QAM 08/13/19 02/15/23 History butalbital 50 mg-acetaminophen 325 1 cap PO Q4H PRN headache #40 caps 09/22/21 02/15/23 Rx mg-caffeine 40 mg-codeine 30 mg cap ketoconazole 2 % topical cream 1 applic topical DAILY PRN Rash 02/16/22 02/15/23 History tramadol 50 mg tablet 100 mg PO Q6H PRN Breakthrough 07/04/22 02/15/23 Rx Pain #60 tabs ezetimibe 10 mg tablet See Rx Instructions .Route 11/01/22 02/15/23 Rx .COMPLEX #90 tabs alprazolam 1 mg tablet 1 mg PO TID PRN Anxiety #90 tabs 12/27/22 02/21/23 Rx benzonatate 200 mg capsule 200 mg PO TID PRN cough #30 caps 02/04/23 02/15/23 Rx morphine 60 mg tablet,extended 60 mg PO BID #60 tabs 02/14/23 02/21/23 Rx release ondansetron 4 mg disintegrating See Rx Instructions .Route 02/14/23 02/15/23 Rx tablet .COMPLEX PRN Nausea #30 tabs acetaminophen 500 mg capsule 500 mg PO QAM 02/15/23 02/15/23 History cyanocobalamin (vitamin B-12) 1,000 mcg PO DAILY 02/15/23 02/15/23 History 1,000 mcg capsule dexlansoprazole 60 mg 60 mg PO HS 02/15/23 02/15/23 History capsule,biphase delayed release duloxetine 20 mg capsule,delayed 20 mg PO BID 02/15/23 02/21/23 History release gabapentin 300 mg capsule 600 mg PO BID 02/15/23 02/21/23 History polyethylene glycol 3350 17 17 g PO DAILY PRN Constipation 02/15/23 02/15/23 History gram/dose oral powder (Miralax) valacyclovir 1 gram tablet 2,000 mg PO Q12H PRN Mouth 02/15/23 02/15/23 History Irritation Patient hx anesthesia problems: other (slow to awaken) Family hx anesthesia problems: none Results Review: All pre-operative results and documents have been reviewed as part of the pre-operative evaluation. [facility] Past Medical History Medical History Anxiety Aortic atherosclerosis 11/2017 Aortic stenosis 1.3 cm2 Brain aneurysm Status post clips Burning sensation of mouth CAD (coronary artery disease) Cataracts, bilateral Cerebral atherosclerosis Chronic fatigue Chronic pain Chronic, continuous use of opioids DDD (degenerative disc disease) Dementia with frontal lobe atrophy, short term memory loss Depression Dilated bile duct Diverticulitis Endometriosis Fibrocystic breast disease Fibromyalgia Gallbladder sludge GERD (gastroesophageal reflux disease) History of angina History of heart attack 1994 Hyperlipidemia IPMN (intraductal papillary mucinous neoplasm) Migraine MVP (mitral valve prolapse) Neuropathy Osteoarthritis Osteoporosis Peripheral neuropathy Peripheral vascular disease, unspecifi
--- NOTE | 2023-02-21 07:08 | WPDHPUPDATE1 ---
History and Physical Update Update Date/Time: 02/21/23 07:08 History and Physical has been reviewed, including an updated exam of the patient. There are NO changes in the patient's condition. Risks, benefits, and alternatives have been discussed and questions answered. Patient agrees to proceed with procedure.
--- NOTE | 2023-02-21 07:08 | PM.IMHP ---
H&P: HPI History of Present Illness Date/Time: 02/21/23 07:08 Chief Complaint: bad teeth PMFSH Past Medical History Medical History Anxiety Aortic atherosclerosis 11/2017 Aortic stenosis 1.3 cm2 Brain aneurysm Status post clips Burning sensation of mouth CAD (coronary artery disease) Cataracts, bilateral Cerebral atherosclerosis Chronic fatigue Chronic pain Chronic, continuous use of opioids DDD (degenerative disc disease) Dementia with frontal lobe atrophy, short term memory loss Depression Dilated bile duct Diverticulitis Endometriosis Fibrocystic breast disease Fibromyalgia Gallbladder sludge GERD (gastroesophageal reflux disease) History of angina History of heart attack 1994 Hyperlipidemia IPMN (intraductal papillary mucinous neoplasm) Migraine MVP (mitral valve prolapse) Neuropathy Osteoarthritis Osteoporosis Peripheral neuropathy Peripheral vascular disease, unspecified 11/2017 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 Seasonal allergies Seizure last one in Spinal cord stimulator status Thyroid nodule Surgical History Surgical History H/O breast biopsy bilateral H/O cervical spine surgery x2, 1994, 2006 H/O dilation and curettage H/O vascular surgery to clip brain aneurysm History of bunionectomy History of cardiac catheterization History of coronary artery stent placement x2 2006 History of knee replacement, total bilateral History of repair of ACL in left knee Hx laparoscopic cholecystectomy 04-06-22 Hx of CABG x2 vessel 1994 Hx of cataract removal with insertion of prosthetic lens Hx of lumpectomy Hx of tonsillectomy Total knee replacement status Family History Family History Mother Family history of osteoarthritis Acute myocardial infarction Depression Heart disease Father Heart disease Acute myocardial infarction Depression Sibling Non-Hodgkin lymphoma Family history of osteoarthritis Grandparent Cerebrovascular accident Depression Family history of osteoarthritis Heart disease Hypertension Malignant neoplasm of prostate Other Breast cancer Carcinoma of colon Other Colon polyp Social History Social History Social History: Patient lives with her Angel. She tells me that she just stop smoking a couple months ago. 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 She has 3 children. She desires to be a full code. Smoking packs per day: 1 Smoking cigarettes per day: 20.0 Years smoked: 44 Smoking pack-years: 44.00 Smoking status: Current every day smoker Tobacco type: cigarettes Second hand tobacco smoke exposure: Yes Smoking end date: 07/21/19 Additional smoking assessment comments: TAPERING DOWN SMOKING, 1/3 PACK/DAY CURRENTLY Alcohol intake: never Drinks per week: 1 Substance use: never Substance use type: does not use Lack of Transportation: No Lack of Food: Never True Current Housing: I Have Housing Concerned About Future Housing: No Difficulty Paying Gas/Electric Bills: No Difficulty Paying for Meds: No Currently Unemployed: No Education: High School Diploma/GED Difficulty w/ Childcare or Family Care: No Living arrangements: with family Additional living arrangements comments: Occupation/Education: retired Gender identity (if verbalized by the patient): Female Spiritual care concerns: No Agree to blood products: Yes Meds Home Medications and Allergies Home Medications Medication Instructions Recorded Confirmed Type alirocumab 75 mg/mL subcutaneous 75 mg subcut [id number] 08/13/19 02/15/23 History pen injector (Praluent Pen) fexofenadine 180 mg tablet 180 mg PO DAILY PRN Allergy
[2023-02-21] MEDS: LACTATED RINGERS 1,000 ML 30 ML IV CONT (07:18)
--- NOTE | 2023-02-21 08:31 | P.OP_ITS ---
Procedure Note - Detailed Date of Procedure 02/21/23 Pre-op Diagnosis Dental Caries #4 through #13, #21 through 29 ) Post-op Diagnosis Same Procedure Performed removal of all remaining teeth Surgeon Bipin Sanders, RADHA Anesthesia General Description of Procedure Patient encountered in the upper room under the care of the Anesthesia Service induced a general anesthetic. Patient draped in the usual manner for intraoral surgical procedure. Oral cavity suctioned free of debris and throat pack placed. Local anesthetic administered. Fifteen blade was used to make an incision around the remaining maxillary teeth numbers 4 through 13 in a full- thickness flap was elevated buckle. Teeth numbers 4-13 removed using forceps technique. sockets curretted free of debris. alveoloplasty completed. Wound was thoroughly irrigated and then closed using 4-0 chromic gut suture in continuous fashion. Attention was turned to the mandible were an identical procedure was used to extract teeth numbers 21-29. Sockets curetted free of debris. alveoloplasty completed. wound thoroughly irrigated and closed using 4-0 chromic gut suture in continuous fashion. Oral cavity was suctioned free of debris and throat pack was removed. Gauze packs placed. Care of the patient was returned to the anesthesia service. ebl min. no complications.
--- NOTE | 2023-02-21 16:02 | PM.IMHP ---
H&P: HPI History of Present Illness Date/Time: 02/21/23 16:02 Chief Complaint: Hypoxia Narrative: 72 y/o F presents here with hypoxia post-op (teeth extraction - 19 total) today with PMH of aortic stenosis, anxiety/depression, CAD, chronic pain, DDD, dementia, endometriosis, fibromyalgia, NE, HLD, migraine, MVP, neuropathy, OA, neuropathy, and peripheral vascular disease. Patient here for full mouth extraction due to nonrestorable teeth. Postop saturation 85% on room air, requiring supplemental oxygen. Previous history of same post-op complication after orthopedic surgery requiring supplemental oxygen for a short duration. provided history due to patient's nausea/discomfort. per , teeth have been cracking, falling out, causing pain for the past few months, significantly worse in the last 2 weeks. Patient currently endorsing GOFF and nausea - emesis bloody and mouth discomfort. Denies CP. Review of Systems Review of Systems: All systems reviewed & are unremarkable except as noted in HPI and below PMFSH Past Medical History Medical History Anxiety Aortic atherosclerosis 11/2017 Aortic stenosis 1.3 cm2 Brain aneurysm Status post clips Burning sensation of mouth CAD (coronary artery disease) Cataracts, bilateral Cerebral atherosclerosis Chronic fatigue Chronic pain Chronic, continuous use of opioids DDD (degenerative disc disease) Dementia with frontal lobe atrophy, short term memory loss Depression Dilated bile duct Diverticulitis Endometriosis Fibrocystic breast disease Fibromyalgia Gallbladder sludge GERD (gastroesophageal reflux disease) History of angina History of heart attack 1994 Hyperlipidemia IPMN (intraductal papillary mucinous neoplasm) Migraine MVP (mitral valve prolapse) Neuropathy Osteoarthritis Osteoporosis Peripheral neuropathy Peripheral vascular disease, unspecified 11/2017 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 Seasonal allergies Seizure last one in Spinal cord stimulator status Thyroid nodule Surgical History Surgical History H/O breast biopsy bilateral H/O cervical spine surgery x2, 1994, 2006 H/O dilation and curettage H/O vascular surgery to clip brain aneurysm History of bunionectomy History of cardiac catheterization History of coronary artery stent placement x2 2006 History of knee replacement, total bilateral History of repair of ACL in left knee Hx laparoscopic cholecystectomy 04-06-22 Hx of CABG x2 vessel 1994 Hx of cataract removal with insertion of prosthetic lens Hx of lumpectomy Hx of tonsillectomy Total knee replacement status Family History Family History Mother Family history of osteoarthritis Acute myocardial infarction Depression Heart disease Father Heart disease Acute myocardial infarction Depression Sibling Non-Hodgkin lymphoma Family history of osteoarthritis Grandparent Cerebrovascular accident Depression Family history of osteoarthritis Heart disease Hypertension Malignant neoplasm of prostate Other Breast cancer Carcinoma of colon Other Colon polyp Social History Social History Social History: Patient lives with her Angel. She tells me that she just stop smoking a couple months ago. 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 She has 3 children. She desires to be a full code. Smoking packs per day: 1 Smoking cigarettes per day: 20.0 Years smoked: 44 Smoking pack-years: 44.00 Smoking status: Current every day smoker Second hand tobacco smoke exposure: Yes Additional smoking assessment comments: TAPERING DOWN SMOKING, 1/3 PACK/DAY CURRENTLY Alcohol intake: never Drinks per week: 1 Substance use
--- NOTE | 2023-02-21 16:55 | ADMGEN ---
This patient, Natalie Millan, was admitted to Medical Room 346-01. Patient/family oriented to hospital policies and general routines including ID bracelet, bed and alarms, visiting hours, pain management, procedures, bathroom and other care routines, personal items, smoking policy, room service/diet, and visiting hours. Information on how to activate the Rapid Response Team has been discussed. Patient/Family are encouraged to report perceived risks to care and to ask questions if they do not understand what they are told or what they should do.
[2023-02-21] MEDS: ONDANSETRON INJ 4 MG/2 ML VIAL IV PUSH (18:40)
[2023-02-21] MEDS: DULoxetine HCL 20 MG CAPSULE.DR PO (21:27)
[2023-02-21] MEDS: MORPHINE SULFATE (*CRX) 60 MG TABCR PO (21:27)
[2023-02-21] MEDS: GABAPENTIN 300 MG CAPSULE 600 MG PO (21:27)
[2023-02-21] MEDS: PANTOPRAZOLE 40 MG TABLET PO (21:27)
[2023-02-21 23:16] LABS: NT Pro B Type Natriuretic Pept 4130 pg/mL (19.9-100)
[2023-02-22] MEDS: metroNIDAZOLE 500 MG/ISO 100ML 500 MG/100 ML BAG 100 MG IVPB ×3 (01:03→14:19)
[2023-02-22 04:00] VITALS: BP 139/52; PULSE 71; RESP 14; TEMP 36.7; O2SAT 95
[2023-02-22] MEDS: ALPRAZolam (*CRX) 0.5 MG TABLET 1 MG PO (04:24)
[2023-02-22 08:00] VITALS: PULSE 57; RESP 18; TEMP 36.7; O2SAT 96
[2023-02-22 08:57] VITALS: O2SAT 96
[2023-02-22] MEDS: DULoxetine HCL 20 MG CAPSULE.DR PO (08:57)
[2023-02-22] MEDS: GABAPENTIN 300 MG CAPSULE 600 MG PO (08:57)
[2023-02-22] MEDS: CYANOCOBALAMIN 1,000 MCG TABLET 1000 MCG PO (08:57)
[2023-02-22] MEDS: ROSUVASTATIN 10 MG TABLET 40 MG PO (08:57)
[2023-02-22] MEDS: EZETIMIBE 10 MG TABLET PO (08:57)
[2023-02-22] MEDS: MORPHINE SULFATE (*CRX) 60 MG TABCR PO (08:58)
[2023-02-22 10:53] VITALS: O2SAT 95
--- NOTE | 2023-02-22 11:54 | WPDANESPN ---
Anes - Prog Note Post-Op Date/Time: 02/22/23 11:54 Cardiovascular status: normal Respiratory status: normal Airway patency: baseline Mental status: baseline Post-Op hydration status: normal Vital Signs: Last Vital Signs Temp 36.7 C 02/22/23 08:00 Pulse 57 L 02/22/23 08:00 Resp 18 02/22/23 08:00 BP 139/52 L 02/22/23 04:00 Pulse Ox 95 02/22/23 10:53 O2 Del Method Nasal Cannula 02/22/23 10:53 O2 Flow Rate 1 02/22/23 10:53 Pain Score (VAS): 2/10 I/O: Intake & Output 02/21/23 02/22/23 02/22/23 23:59 07:59 15:59 Intake Total 50 100 240 Balance 50 100 240 02/21/23 22:47 NT-Pro-B Natriuret Pep 4130 H Post-procedural complaints: none Patient Feedback: Patient satisfied with anesthetic care.
[2023-02-22 12:00] VITALS: BP 144/47; PULSE 55; RESP 16; TEMP 36.7; O2SAT 95
--- NOTE | 2023-02-22 15:04 | PM.DS ---
DS: Admitting Diagnosis Discharge Date 02/22/23 Admitting Diagnosis acute hypoxic respiratory failure DS: Discharge Diagnosis Discharge Diagnosis (1) Hypoxia: Code(s): R09.02 - Hypoxemia Status: Acute (2) Non-restorable tooth: Code(s): K08.89 - Other specified disorders of teeth and supporting structures Status: Acute DS: Summary Hospital Course Hospital Course: She was taken to OR by Dr. Sanders for same day surgery, removal of remaining teeth. That procedure was without complication. She was unable to be taken off of oxygen, desat to 85% with anesthesia in PACU. She was admitted for observation, given one dose of lasix for acute fluid overload, likely compounded by atelectasis. she improved back to baseline, discharged home in stable condition. to follow up with PCP within 2 weeks. Time Spent with Patient Time attestation: Total time spent providing and/or coordinating discharge services: Exam Const: General: cooperative and no acute distress Resp: Effort & Inspection: normal respiratory effort Auscultation: clear to auscultation bilaterally Cardio: Rate: regular rate Rhythm: regular rhythm Heart sounds: S1 normal heart sound present and S2 normal heart sound present GI: GI Palp: No abdominal tenderness Auscultation: normal bowel sounds DS: Data Data Completed and Pending Labs on day of discharge: Labs from last 24 hours 02/21/23 22:47 NT-Pro-B Natriuret Pep 4130 H Discharge Plan Discharge Attending physician on discharge: Vonda Macario Discharging Clinician: Vonda Macario Patient Disposition: Home, Self-Care Activity: october shower Diet: heart healthy Stand Alone Forms: General Discharge Information Follow-up/Referrals: Abdiel Butcher MD [Primary Care Provider] - 2 Weeks Discharge Medications: Continued fexofenadine [Swapna Allergy] 180 mg Tablet 180 mg PO DAILY PRN (Reason: Allergy Symptoms) nitroglycerin [Nitrostat] 0.4 mg Tablet, Sublingual 0.4 mg SUBLINGUAL ONCE PRN (Reason: Chest Pain) rosuvastatin [Crestor] 40 mg Tablet 40 mg PO QAM Praluent Pen 75 mg/mL Pen Injector 75 mg SUBCUT [id number] Patient Comments: Takes just once on Sundays ketoconazole 2 % cream 1 applic TOPICAL DAILY PRN (Reason: Rash) Rx Instructions: TO NOSE valacyclovir 1 gram tablet 2,000 mg PO Q12H PRN (Reason: Mouth Irritation) Rx Instructions: take 2 tablets twice daily for 1 day. Repeat for future episodes. gabapentin 300 mg capsule 600 mg PO BID polyethylene glycol 3350 [Miralax] 17 gram/dose powder 17 g PO DAILY PRN (Reason: Constipation) duloxetine 20 mg capsule,delayed release(DR/EC) 20 mg PO BID Rx Instructions: TAKE 1 CAPSULE BY MOUTH TWICE A DAY START AFTER STOPPING MIRTAZAPINE dexlansoprazole 60 mg capsule,biphase delayed releas 60 mg PO HS acetaminophen [Tylenol Extra Strength] 500 mg Capsule 500 mg PO QAM cyanocobalamin (vitamin B-12) 1,000 mcg Capsule 1,000 mcg PO DAILY [id number] mg capsule 1 cap PO Q4H PRN (Reason: headache) Qty: 40 0RF tramadol 50 mg tablet 100 mg PO Q6H PRN (Reason: Breakthrough Pain) Qty: 60 3RF ezetimibe 10 mg tablet See Rx Instructions .ROUTE .COMPLEX Qty: 90 3RF Dose Instruction: TAKE 1 TABLET BY MOUTH DAILY Rx Instructions: TAKE 1 TABLET BY MOUTH DAILY alprazolam 1 mg tablet 1 mg PO TID PRN (Reason: Anxiety) Qty: 90 5RF benzonatate 200 mg capsule 200 mg PO TID PRN (Reason: cough) Qty: 30 1RF morphine 60 mg tablet extended release 60 mg PO BID Qty: 60 0RF ondansetron 4 mg tablet,disintegrating See Rx Instructions .ROUTE .COMPLEX PRN (Reason: Nausea) Qty: 30 2RF Rx Instructions: DISSOLVE 1 TABLET BY MOUTH EVERY 6 HOURS NEEDED FOR NAUSEA AND VOMITING Date of admission: 02/21/23 18:14 Primary Care Provider: Carolina
[2023-02-22 15:21] VITALS: BP 111/46; PULSE 82; RESP 16; TEMP 36.9; O2SAT 93
== END 2023-02-22 15:12 | disposition home or self-care (01) ==
LOC: ANHSURGERY 06:08 → ANH3MED 16:59 → ANHSURGERY 18:34 → ANH3MED 02-22 15:04
PROVIDERS: Student in an Organized Health Care Education/Training Program; PCP Family Medicine Adolescent Medicine; Visit Provider Dentist
PROC: (CPT 41899; principal; 2023-02-21 07:30)
DX: K02.9 Dental caries, unspecified (principal); R09.02 Hypoxemia; R06.2 Wheezing; E87.70 Fluid overload, unspecified; J98.11 Atelectasis; R51.9 Headache, unspecified; R11.2 Nausea with vomiting, unspecified; I25.10 Atherosclerotic heart disease of native coronary artery without angina pectoris; F03.90 Unspecified dementia, unspecified severity, without behavioral disturbance, psychotic disturbance, mood disturbance, and anxiety; F41.9 Anxiety disorder, unspecified; F32.A Depression, unspecified; M79.7 Fibromyalgia; I25.2 Old myocardial infarction; K21.9 Gastro-esophageal reflux disease without esophagitis; E78.5 Hyperlipidemia, unspecified; I34.1 Nonrheumatic mitral (valve) prolapse; G62.9 Polyneuropathy, unspecified; G89.29 Other chronic pain; M81.0 Age-related osteoporosis without current pathological fracture; I73.9 Peripheral vascular disease, unspecified; Z79.891 Long term (current) use of opiate analgesic; Z79.620 Long term (current) use of immunosuppressive biologic; Z95.5 Presence of coronary angioplasty implant and graft; Z95.1 Presence of aortocoronary bypass graft; F17.210 Nicotine dependence, cigarettes, uncomplicated
CPT/HCPCS: D7240 ×19; 36415; 71045; 83880; A9270; J0696; J1100; J1170; J1836; J2405; J2704; J3010; J7120

== ENCOUNTER 2023-03-02 09:58 | Emergency (ER) | payer MEDICARE, SELFPAY ==
[2023-03-02] VITALS (14 sets, daily range): BP systolic 147–187; BP diastolic 69–87; PULSE 70–94; RESP 12–22; TEMP 36.8; O2SAT 95–99
--- NOTE | ~2023-03-02 | CT_ITS ---
CT of the Abdomen and Pelvis: Indication: Abdominal pain Technique: 2.5 mm axial scans were obtained through the abdomen and pelvis following intravenous adm inistration of 100 cc of Omnipaque 350. Dose reduction technique was used on this scan by utilizing a utomated exposure control and iterative reconstruction technique. The dose-length product (DLP) was 1 81.53 mGy-cm. COMPARISON: 07/20/2022 Findings: Scans through the lung bases are unremarkable. Multiple hepatic cysts are present, similar to prior exam. Cholecystectomy clips are present. Promine nt dilatation of the common bile duct is present, similar to prior exam. There is mild central intrah epatic biliary dilatation. The spleen, pancreas, adrenals and kidneys are within normal limits. There are atherosclerotic calcifications of the aorta. No lymphadenopathy. No bowel obstruction or bowel wall thickening. There is no evidence to suggest acute appendicitis. Images through the pelvis were performed. Questionable mild urinary bladder wall thickening. No adnex al mass seen. No ascites. Impression: Probable urinary bladder wall thickening. Correlate for cystitis. Intrahepatic and extra hepatic biliary dilatation is probably similar to prior exam, possibly related to prior cholecystectomy. Multiple hepatic cysts, unchanged. Reviewed, dictated and finalized at [facility]. Impression: Probable urinary bladder wall thickening. Correlate for cystitis. Intrahepatic and extra hepatic biliary dilatation is probably similar to prior exam, possibly related to prior cholecystectomy. Multiple hepatic cysts, unchanged.
[2023-03-02 11:59] LABS: Basophils Percent Auto 0.3 % (0.2-1.2); Eosinophils Absolute Auto 0.1 K/mm3 (0-0.3); Eosinophils Percent Auto 0.9 % (0-4.4); Hematocrit 41.7 % (37.0-47.0); Immature Granulocyte Absolute 0.02 K/mm3 (0.00-0.031); Immature Granulocyte Percent A 0.3 % (0-0.5); Lymphocytes Percent Auto 19.5 % (18.3-44.2); Mean Corpuscular HGB Conc 31.2 g/dl (32-36); Mean Corpuscular Hemoglobin 29.7 pg (26-34); Mean Corpuscular Volume 95.2 fl (80-100); Monocytes Absolute Auto 0.4 K/mm3 (0.1-0.6); Monocytes Percent Auto 6.5 % (2.6-8.5); Neutrophils Absolute Auto 4.8 K/mm3 (1.3-6.7); Neutrophils Percent Auto 72.5 % (45.5-73.1); Platelet Count Result 149 k/mm3 (150-375); Red Blood Count 4.38 M/mm3 (4.2-5.4); Red Cell Distribution Width 13.1 % (11.5-14.5); White Blood Count 6.7 K/mm3 (4.5-10.0)
[2023-03-02 12:10] LABS: INR 0.9; Partial Thromboplastin Time 33.8 SECONDS (22.3-36.8); Prothrombin Time 12.9 Seconds (11.1-14.7)
[2023-03-02 12:11] LABS: Alanine Aminotransferase 27 U/L (6-35); Albumin Level 4.7 g/dL (3.5-5.1); Alkaline Phosphatase 80 U/L (38-126); Anion Gap 6 mmol/L (8-16); Aspartate Amino Transferase 36 U/L (14-36); Bilirubin,Total 0.8 mg/dL (0.2-1.3); Blood Urea Nitrogen 13 mg/dL (7-17); Calcium 9.2 mg/dL (8.4-10.2); Carbon Dioxide 36 mmol/L (22-30); Chloride 98 mmol/L (98-107); Estimated CRCL calculation 48 ml/min; Estimated Glomerular Filt Rate > 60; Glucose 104 mg/dL (65-110); Sodium 140 mmol/L (137-145)
[2023-03-02 12:16] LABS: Appearance Urine Cloudy (Clear); Bacteria Urine None Seen /hpf; Bilirubin Urine 1+ (Negative); Blood Urine 2+ (Negative); Color Urine Dark Yellow (Yellow); Glucose Urine UA Negative (Negative); Ketones Urine Negative (Negative); Leukocyte Esterase Ur 2+ LEU/UL (Negative); Need Manual Microscopic Reviewed; Nitrate Urine Negative (Negative); Protein Urine 2+ mg/dL (Negative); RBC Urine >100 /hpf (0-2); Specific Grav Ur 1.021 (1.001-1.035); Squamous Epithelial Cell Urine None seen /hpf (Few); WBC Clumps Urine Present /HPF; WBC Urine >100 /hpf; pH Urine 7.5 (5.0-9.0)
[2023-03-02 12:29] LABS: Add Urine Microscopic? YES
--- NOTE | 2023-03-02 13:27 | ED.GENADULT ---
HPI - General Adult General Chief complaint: GI Bleed Stated complaint: burning with urination and dark tarry stools x1d Time Seen by Provider: 03/02/23 11:40 History of Present Illness HPI narrative: 72-year-old female presented the emergency department for evaluation of concern for dark stool. Patient states she has been eating multiple ensures a day and has had firm dark stool. Patient also states that she did have some blood but she was not sure if this was urinary or rectal. Related Data Home Medications Medication Instructions Recorded Confirmed alirocumab 75 mg/mL subcutaneous 75 mg subcut [id number] 08/13/19 03/01/23 pen injector (Praluent Pen) fexofenadine 180 mg tablet 180 mg PO DAILY PRN Allergy 08/13/19 03/01/23 (Swapna Allergy) Symptoms nitroglycerin 0.4 mg sublingual 0.4 mg sublingual ONCE PRN Chest 08/13/19 03/01/23 tablet (Nitrostat) Pain rosuvastatin 40 mg tablet (Crestor) 40 mg PO QAM 08/13/19 03/01/23 ketoconazole 2 % topical cream 1 applic topical DAILY PRN Rash 02/16/22 03/01/23 acetaminophen 500 mg capsule 500 mg PO QAM 02/15/23 03/01/23 cyanocobalamin (vitamin B-12) 1,000 mcg PO DAILY 02/15/23 03/01/23 1,000 mcg capsule dexlansoprazole 60 mg 60 mg PO HS 02/15/23 03/01/23 capsule,biphase delayed release duloxetine 20 mg capsule,delayed 20 mg PO BID 02/15/23 03/01/23 release gabapentin 300 mg capsule 600 mg PO BID 02/15/23 03/01/23 polyethylene glycol 3350 17 17 g PO DAILY PRN Constipation 02/15/23 03/01/23 gram/dose oral powder (Miralax) valacyclovir 1 gram tablet 2,000 mg PO Q12H PRN Mouth 02/15/23 03/01/23 Irritation Allergies Allergy/AdvReac Type Severity Reaction Status Date / Time adhesive tape Allergy Unknown RASH, Verified 03/02/23 09:59 REDNESS clindamycin Allergy Unknown Rash Verified 03/02/23 09:59 armodafinil [From Nuvigil] AdvReac Unknown Hyperactive Verified 03/02/23 09:59 Penicillins AdvReac Unknown Rash Verified 03/02/23 09:59 Sulfa (Sulfonamide AdvReac Unknown RASH, Verified 03/02/23 09:59 Antibiotics) REDNESS, BURNING Surgical Glue Allergy Intermediate Rash Uncoded 03/02/23 09:59 Review of Systems Review of Systems: All systems reviewed & are unremarkable except as noted in HPI and below PMFSH Past Medical History Medical History Anxiety Aortic atherosclerosis 11/2017 Aortic stenosis 1.3 cm2 Brain aneurysm Status post clips Burning sensation of mouth CAD (coronary artery disease) Cataracts, bilateral Cerebral atherosclerosis Chronic fatigue Chronic pain Chronic, continuous use of opioids DDD (degenerative disc disease) Dementia with frontal lobe atrophy, short term memory loss Depression Dilated bile duct Diverticulitis Endometriosis Fibrocystic breast disease Fibromyalgia Gallbladder sludge GERD (gastroesophageal reflux disease) History of angina History of heart attack 1994 Hyperlipidemia IPMN (intraductal papillary mucinous neoplasm) Migraine MVP (mitral valve prolapse) Neuropathy Osteoarthritis Osteoporosis Peripheral neuropathy Peripheral vascular disease, unspecified 11/2017 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 Seasonal allergies Seizure last one in Spinal cord stimulator status Thyroid nodule Surgical History Surgical History H/O breast biopsy bilateral H/O cervical spine surgery x2, 1994, 2006 H/O dilation and curettage H/O vascular surgery to clip brain aneurysm History of bunionectomy History of cardiac catheterization History of coronary artery stent placement x2 2006 History of knee replacement, total bilateral History of repair of ACL in left knee Hx laparoscopic cholecystectomy 04-06-22 Hx of CABG x2 vessel 1994 Hx of cataract removal with insertion of prosthetic lens Hx of lumpectomy Hx of tonsillectomy Total knee replacement status
== END 2023-03-02 14:10 | disposition home or self-care (01) ==
PROVIDERS: Emergency Provider Emergency Medicine; PCP Family Medicine Adolescent Medicine
DX: N39.0 Urinary tract infection, site not specified (principal); I70.0 Atherosclerosis of aorta; I35.0 Nonrheumatic aortic (valve) stenosis; I25.10 Atherosclerotic heart disease of native coronary artery without angina pectoris; I67.2 Cerebral atherosclerosis; I34.1 Nonrheumatic mitral (valve) prolapse; I25.2 Old myocardial infarction; G31.09 Other frontotemporal neurocognitive disorder; F02.80 Dementia in other diseases classified elsewhere, unspecified severity, without behavioral disturbance, psychotic disturbance, mood disturbance, and anxiety; E78.5 Hyperlipidemia, unspecified; K21.9 Gastro-esophageal reflux disease without esophagitis; G62.9 Polyneuropathy, unspecified; R53.82 Chronic fatigue, unspecified; M79.7 Fibromyalgia; M19.90 Unspecified osteoarthritis, unspecified site; M81.0 Age-related osteoporosis without current pathological fracture; F41.9 Anxiety disorder, unspecified; F32.A Depression, unspecified; Z96.82 Presence of neurostimulator; Z95.5 Presence of coronary angioplasty implant and graft; Z96.653 Presence of artificial knee joint, bilateral; Z95.1 Presence of aortocoronary bypass graft; Z87.891 Personal history of nicotine dependence; Z90.49 Acquired absence of other specified parts of digestive tract; Z98.49 Cataract extraction status, unspecified eye; Z96.1 Presence of intraocular lens; K76.89 Other specified diseases of liver
CPT/HCPCS: 36415; 74177; 80053; 81001; 85025; 85610; 85730; 86850; 86900; 86901; 87086; 87088; 96365; 99284; J0696; Q9967

== ENCOUNTER 2023-03-11 09:24 | Emergency (ER) | payer MEDICARE, SELFPAY ==
[2023-03-11 09:46] VITALS: BP 161/67; PULSE 76; RESP 16; O2SAT 98
[2023-03-11 10:03] LABS: Bacteria Urine None Seen /hpf; Non Pathogenic Casts 0-2; RBC Urine >100 /hpf (0-2); Squamous Epithelial Cell Urine None seen /hpf (Few); WBC Urine >100 /hpf
[2023-03-11 10:04] LABS: Appearance Urine Turbid (Clear); Bilirubin Urine Negative (Negative); Blood Urine 3+ (Negative); Color Urine Yellow (Yellow); Glucose Urine UA Negative (Negative); Ketones Urine Negative (Negative); Leukocyte Esterase Ur 2+ LEU/UL (Negative); Nitrate Urine Negative (Negative); Protein Urine 3+ mg/dL (Negative); pH Urine 8.5 (5.0-9.0)
[2023-03-11 10:06] LABS: Add Urine Microscopic? YES
[2023-03-11 10:43] LABS: Basophils Percent Auto 0.2 % (0.2-1.2); Eosinophils Percent Auto 0.5 % (0-4.4); Hematocrit 39.4 % (37.0-47.0); Hemoglobin 12.6 g/dL (12.0-15.0); Immature Granulocyte Absolute 0.02 K/mm3 (0.00-0.031); Immature Granulocyte Percent A 0.2 % (0-0.5); Lymphocytes Absolute Auto 1.01 K/mm3 (0.9-3.2); Lymphocytes Percent Auto 11.4 % (18.3-44.2); Mean Corpuscular Hemoglobin 30.3 pg (26-34); Mean Corpuscular Volume 94.7 fl (80-100); Monocytes Absolute Auto 0.3 K/mm3 (0.1-0.6); Monocytes Percent Auto 3.5 % (2.6-8.5); Neutrophils Absolute Auto 7.5 K/mm3 (1.3-6.7); Neutrophils Percent Auto 84.2 % (45.5-73.1); Platelet Count Result 133 k/mm3 (150-375); Red Blood Count 4.16 M/mm3 (4.2-5.4); Red Cell Distribution Width 12.8 % (11.5-14.5); White Blood Count 8.9 K/mm3 (4.5-10.0)
[2023-03-11 10:53] LABS: Alanine Aminotransferase 24 U/L (6-35); Albumin Level 4.3 g/dL (3.5-5.1); Alkaline Phosphatase 72 U/L (38-126); Anion Gap 3 mmol/L (8-16); Aspartate Amino Transferase 32 U/L (14-36); Bilirubin,Total 0.8 mg/dL (0.2-1.3); Blood Urea Nitrogen 15 mg/dL (7-17); Calcium 8.9 mg/dL (8.4-10.2); Carbon Dioxide 33 mmol/L (22-30); Chloride 103 mmol/L (98-107); Estimated CRCL calculation 62 ml/min; Estimated Glomerular Filt Rate > 60; Glucose 104 mg/dL (65-110); Sodium 139 mmol/L (137-145)
--- NOTE | 2023-03-11 12:12 | ED.FEMALEGU ---
HPI - Female Genitourinary General Chief complaint: Urogenital-Female Stated complaint: blood in urine Time Seen by Provider: 03/11/23 09:46 Source: patient, RN notes reviewed and old records reviewed Mode of arrival: ambulatory Limitations: no limitations History of Present Illness HPI Narrative: This is a 72 year old female who presents for evaluation of hematuria. Patient states she was placed on antibiotics on 03/02 for cystitis and she completed her antibiotics yesterday. She developed dysuria this morning and she reports urinates small clots of blood at 4 am. She denies abdominal pain, back pain, nausea, vomiting or fever. She has been evaluated by Dr. Man in the past with cystoscope. She thinks she was seen for recurrent UTIS. She denies taking anticoagulation. Related Data Home Medications Medication Instructions Recorded Confirmed alirocumab 75 mg/mL subcutaneous 75 mg subcut [id number] 08/13/19 03/01/23 pen injector (Praluent Pen) fexofenadine 180 mg tablet 180 mg PO DAILY PRN Allergy 08/13/19 03/01/23 (Swapna Allergy) Symptoms nitroglycerin 0.4 mg sublingual 0.4 mg sublingual ONCE PRN Chest 08/13/19 03/01/23 tablet (Nitrostat) Pain rosuvastatin 40 mg tablet (Crestor) 40 mg PO QAM 08/13/19 03/01/23 ketoconazole 2 % topical cream 1 applic topical DAILY PRN Rash 02/16/22 03/01/23 acetaminophen 500 mg capsule 500 mg PO QAM 02/15/23 03/01/23 cyanocobalamin (vitamin B-12) 1,000 mcg PO DAILY 02/15/23 03/01/23 1,000 mcg capsule dexlansoprazole 60 mg 60 mg PO HS 02/15/23 03/01/23 capsule,biphase delayed release duloxetine 20 mg capsule,delayed 20 mg PO BID 02/15/23 03/01/23 release gabapentin 300 mg capsule 600 mg PO BID 02/15/23 03/01/23 polyethylene glycol 3350 17 17 g PO DAILY PRN Constipation 02/15/23 03/01/23 gram/dose oral powder (Miralax) valacyclovir 1 gram tablet 2,000 mg PO Q12H PRN Mouth 09/07/23 09/21/23 Irritation Allergies Allergy/AdvReac Type Severity Reaction Status Date / Time adhesive tape Allergy Unknown RASH, Verified 03/11/23 09:43 REDNESS clindamycin Allergy Unknown Rash Verified 03/11/23 09:43 armodafinil [From Nuvigil] AdvReac Unknown Hyperactive Verified 03/11/23 09:43 Penicillins AdvReac Unknown Rash Verified 03/11/23 09:43 Sulfa (Sulfonamide AdvReac Unknown RASH, Verified 03/11/23 09:43 Antibiotics) REDNESS, BURNING Surgical Glue Allergy Intermediate Rash Uncoded 03/11/23 09:43 Review of Systems Constitutional: Constitutional: Denies weakness Cardiovascular: Cardiovascular: Denies syncope, Denies rapid heart rate, Denies irregular heart rhythm, Denies leg edema and Denies dyspnea Respiratory: Respiratory: Denies chest congestion, Denies hemoptysis, Denies excessive phlegm production and Denies dyspnea Gastrointestinal: Gastrointestinal: Denies abdominal pain, Denies hematochezia, Denies diarrhea and Denies vomiting Genitourinary: Genitourinary: Reports hematuria and Reports dysuria Musculoskeletal: Musculoskeletal: Denies joint swelling, Denies loss of height and Denies muscle weakness Neurologic: Denies syncope, Denies focal weakness and Denies weakness PMFSH Past Medical History Medical History Anxiety Aortic atherosclerosis 11/2017 Aortic stenosis 1.3 cm2 Brain aneurysm Status post clips Burning sensation of mouth CAD (coronary artery disease) Cataracts, bilateral Cerebral atherosclerosis Chronic fatigue Chronic pain Chronic, continuous use of opioids DDD (degenerative disc disease) Dementia with frontal lobe atrophy, short term memory loss Depression Dilated bile duct Diverticulitis Endometriosis Fibrocystic breast disease Fibromyalgia Gallbladder sludge GERD (gastroesophageal reflux disease) History of angina History of heart attack 1994 Hyperlipidemia IPMN (intraductal papillary mucinous neoplasm) Migraine MVP (mitral valve prolapse) Neuropathy Osteoarthritis Osteop
[2023-03-11 12:55] VITALS: BP 127/63; PULSE 77; RESP 16; O2SAT 94
== END 2023-03-11 13:04 | disposition home or self-care (01) ==
PROVIDERS: Emergency Provider General Practice; PCP Family Medicine Adolescent Medicine
DX: N30.91 Cystitis, unspecified with hematuria (principal); I70.0 Atherosclerosis of aorta; I35.0 Nonrheumatic aortic (valve) stenosis; I25.10 Atherosclerotic heart disease of native coronary artery without angina pectoris; I67.2 Cerebral atherosclerosis; I34.1 Nonrheumatic mitral (valve) prolapse; I25.2 Old myocardial infarction; G31.09 Other frontotemporal neurocognitive disorder; F02.80 Dementia in other diseases classified elsewhere, unspecified severity, without behavioral disturbance, psychotic disturbance, mood disturbance, and anxiety; E78.5 Hyperlipidemia, unspecified; K21.9 Gastro-esophageal reflux disease without esophagitis; G62.9 Polyneuropathy, unspecified; R53.82 Chronic fatigue, unspecified; M79.7 Fibromyalgia; M19.90 Unspecified osteoarthritis, unspecified site; M81.0 Age-related osteoporosis without current pathological fracture; F41.9 Anxiety disorder, unspecified; F32.A Depression, unspecified; Z96.82 Presence of neurostimulator; Z95.5 Presence of coronary angioplasty implant and graft; Z96.653 Presence of artificial knee joint, bilateral; Z95.1 Presence of aortocoronary bypass graft; Z87.891 Personal history of nicotine dependence; Z90.49 Acquired absence of other specified parts of digestive tract; Z98.49 Cataract extraction status, unspecified eye; Z96.1 Presence of intraocular lens
CPT/HCPCS: 36415; 80053; 81001; 85025; 87086; 87088; 99283

== ENCOUNTER 2023-03-20 15:14 | Observation (INO) | payer MEDICARE, SELFPAY ==
[2023-03-20] VITALS (21 sets, daily range): BP systolic 137–177; BP diastolic 54–90; PULSE 50–74; RESP 11–19; TEMP 36.2–36.9; O2SAT 92–100; BMI 22.7
--- NOTE | ~2023-03-20 | XR_ITS ---
EXAMINATION: XR knee RT 3V DATE: 03/22/2023 13:55 INDICATION: Right knee pain. TECHNIQUE: 3 views of right knee were obtained. COMPARISON: Right knee radiographs 07/22/2021 FINDINGS: There is a total right knee arthroplasty with patellar resurfacing. No fracture. No peripro sthetic lucency to suggest loosening or infection. There is a small knee joint effusion. There are virgen rgical clips in the medial soft tissues. IMPRESSION: 1. Total right knee arthroplasty in near-anatomic alignment. 2. Chronic small right knee joint effusion. Reviewed, dictated and finalized at location A.
--- NOTE | ~2023-03-20 | XR_ITS ---
EXAMINATION: XR chest 2V DATE: 03/20/2023 15:51 INDICATION: Chest pain TECHNIQUE: PA and lateral views of the chest are obtained. COMPARISON: 02/21/2023 FINDINGS: The lungs are free of acute opacities. No pleural effusion or pneumothorax. The heart size is normal. Median sternotomy wires and mediastinal surgical clips are seen, likely from prior coronar y artery bypass grafting. Neurostimulator leads and in the central spinal canal. There is moderate th oracic spondylosis. There are changes of anterior fusion procedure in the lower cervical spine. IMPRESSION: 1. No acute cardiopulmonary abnormality. Reviewed, dictated and finalized at location F.
--- NOTE | ~2023-03-20 | CT_ITS ---
EXAMINATION: CTA chest abdomen pelvis DATE: 03/20/2023 18:31 INDICATION: Left chest and left upper quadrant pain TECHNIQUE: Computed tomographic angiography (CTA) of the chest, abdomen, and pelvis was performed wit h 100 mL Omnipque-350 intravenous contrast. Maximum intensity projection 3D-reconstructions of the ao rta and other arteries were constructed by the technologist on a separate workstation. The dose-lengt h product (DLP) was 355.74 mGy-cm. Automated exposure control and iterative reconstruction technique were employed. COMPARISON: 03/02/2023, 08/03/2022 FINDINGS: CHEST CTA: No aneurysm or dissection of the aorta. Changes of coronary artery bypass grafting are noted. There i s mild emphysema. There is mild dependent atelectasis. No pleural effusion or pneumothorax. Cardiomeg jessica is noted. There are no pathologically enlarged thoracic lymph nodes. There is severe thoracic spo ndylosis. ABDOMEN AND PELVIS CTA: No aneurysm or dissection of the abdominal aorta. The celiac axis, superior mesenteric artery, and in ferior mesenteric artery are normal at their origins. There are single renal arteries. Cysts of the l iver measure up to 4.3 cm in the left hepatic lobe. The spleen and pancreas are normal. There are shantel nges of cholecystectomy with chronic marked enlargement of the common bile duct and central intrahepa tic bile ducts. The adrenal glands and kidneys are unremarkable. No pathologically enlarged abdominal or pelvic lymph nodes are identified. No free intraperitoneal gas or evidence of bowel obstruction. A large volume of colonic stool is present. There is moderate lumbar spondylosis. IMPRESSION: 1. No aneurysm or dissection of the aorta. 2. Constipation. Reviewed, dictated and finalized at location F.
--- NOTE | ~2023-03-20 | US_ITS ---
EXAMINATION: US venous doppler [facility] DATE: 03/20/2023 19:50 INDICATION: Bilateral lower limb pain, chest pain TECHNIQUE: Nunes scale images without and with compression and Doppler images of the bilateral lower e xtremity veins were obtained. COMPARISON: 10/08/2019, 03/27/2017 FINDINGS: The right common femoral vein, profunda femoral vein, femoral vein, popliteal vein, peroneal trunk, p osterior tibial veins, and greater saphenous vein are patent. The left common femoral vein, profunda femoral vein, femoral vein, popliteal vein, peroneal trunk, po sterior tibial veins, and greater saphenous vein are patent. IMPRESSION: 1. Patent bilateral lower extremity veins. No evidence of deep venous thrombosis. Reviewed, dictated and finalized at location F. IMPRESSION: 1. Patent bilateral lower extremity veins. No evidence of deep venous thrombosi s.
--- NOTE | ~2023-03-20 | NM_ITS ---
EXAMINATION: NM zenon stress w perfusion DATE: 03/22/2023 10:56 INDICATION: Chest pain. TECHNIQUE: Rest images were obtained following intravenous administration of 10.9 mCi Tc99m tetrofosm in (Myoview). The patient was infused intravenously with Lexiscan (regadenoson). Then, 34.5 mCi Tc99m tetrofosmin (Myoview) was administered intravenously, and stress images were obtained. Data was vinnie nstructed into short axis and horizontal and vertical long axis SPECT images. Gated SPECT images were also obtained. COMPARISON: Chest CT 03/20/2023 FINDINGS: There is no definite reversible or fixed perfusion abnormality to suggest ischemia or infar ction. There is no segmental wall motion abnormality. Left ventricular ejection fraction measures > 70%. IMPRESSION: 1. No definite ischemia or infarct. 2. Normal left ventricular ejection fraction measuring >70%. Reviewed, dictated and finalized at location A.
--- NOTE | 2023-03-20 15:15 | ECG_ITS ---
Measurements Intervals [place] Rate: 68 P: 236 MS: 358 QRS: 60 QRSD: 76 T: 66 QT: 391 QTc: 416 Interpretive Statements SINUS RHYTHM WITH PREMATURE ATRIAL COMPLEXES BASELINE ARTIFACT PRESENT COMPARED TO ECG 10/17/2022 14:11:15 NO SIGNIFICANT CHANGES Electronically Signed On 03-20-2023 16:37:12 CDT by Jacinta Nash M.D.
[2023-03-20 15:43] LABS: Basophils Percent Auto 0.4 % (0.2-1.2); Eosinophils Absolute Auto 0.1 K/mm3 (0-0.3); Eosinophils Percent Auto 2.1 % (0-4.4); Hematocrit 39.7 % (37.0-47.0); Hemoglobin 12.4 g/dL (12.0-15.0); Immature Granulocyte Absolute 0.02 K/mm3 (0.00-0.031); Immature Granulocyte Percent A 0.4 % (0-0.5); Lymphocytes Absolute Auto 2.08 K/mm3 (0.9-3.2); Lymphocytes Percent Auto 36.9 % (18.3-44.2); Mean Corpuscular HGB Conc 31.2 g/dl (32-36); Mean Corpuscular Hemoglobin 29.8 pg (26-34); Mean Corpuscular Volume 95.4 fl (80-100); Mean Platelet Volume 12.1 fl (7.4-10.4); Monocytes Absolute Auto 0.4 K/mm3 (0.1-0.6); Monocytes Percent Auto 6.6 % (2.6-8.5); Neutrophils Percent Auto 53.6 % (45.5-73.1); Platelet Count Result 113 k/mm3 (150-375); Red Blood Count 4.16 M/mm3 (4.2-5.4); Red Cell Distribution Width 12.7 % (11.5-14.5); White Blood Count 5.6 K/mm3 (4.5-10.0)
[2023-03-20 15:53] LABS: Alanine Aminotransferase 34 U/L (6-35); Albumin Level 4.3 g/dL (3.5-5.1); Alkaline Phosphatase 77 U/L (38-126); Anion Gap 4 mmol/L (8-16); Aspartate Amino Transferase 41 U/L (14-36); Bilirubin,Total 0.5 mg/dL (0.2-1.3); Blood Urea Nitrogen 19 mg/dL (7-17); Calcium 8.9 mg/dL (8.4-10.2); Carbon Dioxide 34 mmol/L (22-30); Chloride 101 mmol/L (98-107); Estimated Glomerular Filt Rate > 60; Glucose 109 mg/dL (65-110); Lipase 49 U/L (23-300); Potassium 4.1 mmol/L (3.4-5.0); Sodium 139 mmol/L (137-145)
[2023-03-20 15:54] LABS: Prothrombin Time 13.1 Seconds (11.1-14.7)
[2023-03-20 16:04] LABS: Troponin I < 0.012 ng/mL (0.000-0.034)
--- NOTE | 2023-03-20 16:35 | PC.NURSE ---
Pt assisted to bathroom.
--- NOTE | 2023-03-20 17:34 | ED.CHESTPAIN ---
HPI - Chest Pain General Chief Complaint: Chest Pain Stated Complaint: chest pain Time Seen by Provider: 03/20/23 16:59 History of Present Illness HPI narrative: Patient is a 72-year-old female here with chest pain. She notes this morning she started having some chest pain which was located between her shoulder blades in her back and radiating around under left breast. She states it was associated with some light headed feeling. She thought it may be acid reflux and took Tums which did not help. she continued it come to hospital for an outpatient appointment for her at which time she stood up and noted the pain seemed to be much worse. She notes that she felt quite nauseous and took some Zofran that she had which seemed to improve the nausea. She notes the pain is much better at this time. She has a history of a double bypass in the and 2 coronary artery stents in the early . She follows with Dr. Taylor, last saw her last fall, she believes she was planning to do a stress test this fall. She notes chronic ongoing nausea since a cholecystectomy several years ago. She denies any abdominal pain. She does note that she has had some intermittent calf cramping bilaterally, unsure of how long it has been present. No cough, congestion, fever, chills, urinary symptoms. Related Data Home Medications Medication Instructions Recorded Confirmed alirocumab 75 mg/mL subcutaneous 75 mg subcut [id number] 08/13/19 03/15/23 pen injector (Praluent Pen) fexofenadine 180 mg tablet 180 mg PO DAILY PRN Allergy 08/13/19 03/15/23 (Swapna Allergy) Symptoms nitroglycerin 0.4 mg sublingual 0.4 mg sublingual ONCE PRN Chest 08/13/19 03/15/23 tablet (Nitrostat) Pain rosuvastatin 40 mg tablet (Crestor) 40 mg PO QAM 08/13/19 03/15/23 ketoconazole 2 % topical cream 1 applic topical DAILY PRN Rash 02/16/22 03/15/23 acetaminophen 500 mg capsule 500 mg PO QAM 02/15/23 03/15/23 cyanocobalamin (vitamin B-12) 1,000 mcg PO DAILY 02/15/23 03/15/23 1,000 mcg capsule dexlansoprazole 60 mg 60 mg PO HS 02/15/23 03/15/23 capsule,biphase delayed release duloxetine 20 mg capsule,delayed 20 mg PO BID 02/15/23 03/15/23 release gabapentin 300 mg capsule 600 mg PO BID 02/15/23 03/15/23 polyethylene glycol 3350 17 17 g PO DAILY PRN Constipation 02/15/23 03/15/23 gram/dose oral powder (Miralax) valacyclovir 1 gram tablet 2,000 mg PO Q12H PRN Mouth 02/15/23 03/15/23 Irritation Allergies Allergy/AdvReac Type Severity Reaction Status Date / Time adhesive tape Allergy Unknown RASH, Verified 03/15/23 10:28 REDNESS clindamycin Allergy Unknown Rash Verified 03/15/23 10:28 armodafinil [From Nuvigil] AdvReac Unknown Hyperactive Verified 03/15/23 10:28 Penicillins AdvReac Unknown Rash Verified 03/15/23 10:28 Sulfa (Sulfonamide AdvReac Unknown RASH, Verified 03/15/23 10:28 Antibiotics) REDNESS, BURNING Surgical Glue Allergy Intermediate Rash Uncoded 03/15/23 10:28 Review of Systems Review of Systems: All systems reviewed & are unremarkable except as noted in HPI and below PMFSH Past Medical History Medical History Anxiety Aortic atherosclerosis 11/2017 Aortic stenosis 1.3 cm2 Brain aneurysm Status post clips Burning sensation of mouth CAD (coronary artery disease) Cataracts, bilateral Cerebral atherosclerosis Chronic fatigue Chronic pain Chronic, continuous use of opioids DDD (degenerative disc disease) Dementia with frontal lobe atrophy, short term memory loss Depression Dilated bile duct Diverticulitis Endometriosis Fibrocystic breast disease Fibromyalgia Gallbladder sludge GERD (gastroesophageal reflux disease) History of angina History of heart attack 1994 Hyperlipidemia IPMN (intraductal papillary mucinous neoplasm) Migraine MVP (mitral valve prolapse) Neuropathy Osteoarthritis Osteoporosis Peripheral neuropathy Peripheral vascular disease, unspecified
--- NOTE | 2023-03-20 17:48 | PC.NURSE ---
EDP at bedside to assess pt.
--- NOTE | 2023-03-20 18:20 | PC.NURSE ---
Patient off unit to CT.
[2023-03-20 18:27] LABS: Appearance Urine Clear (Clear); Bacteria Urine None Seen /hpf; Bilirubin Urine Negative (Negative); Blood Urine 1+ (Negative); Color Urine Yellow (Yellow); Glucose Urine UA Negative (Negative); Ketones Urine Negative (Negative); Leukocyte Esterase Ur Negative LEU/UL (Negative); Nitrate Urine Negative (Negative); Non Pathogenic Casts 0-2; Protein Urine Negative (Negative); Specific Grav Ur 1.007 (1.001-1.035); Squamous Epithelial Cell Urine None seen /hpf (Few); WBC Urine 0-5 /hpf; pH Urine 7.5 (5.0-9.0)
[2023-03-20 18:44] LABS: Troponin I < 0.012 ng/mL (0.000-0.034)
[2023-03-20 18:59] LABS: Add Urine Microscopic? YES
--- NOTE | 2023-03-20 19:15 | PC.NURSE ---
Patient report given to LUCERO Diallo. All questions answered and care of patient transferred.
--- NOTE | 2023-03-20 20:37 | PM.IMHP ---
H&P: HPI History of Present Illness Date/Time: 03/20/23 20:37 Chief Complaint: Chest pain Narrative: This is a 72-year-old female with past medical history significant for coronary artery disease, aortic stenosis, chronic back pain, on chronic opiates, patient presents to the emergency room due to pain localizes in between shoulder blades and radiating around to the breast line on her chest on the left side, states that pain was present earlier in the morning came to a doctor's appointment accompanying her when at some point of while in the waiting area S2 to up and felt worse pain patient was brought to the emergency room for evaluation. According to patient has had weird taste in her mouth has been taking cephalexin in the outpatient setting after tooth extraction has felt nauseous. Denies any fevers, rigors, chills, cough, sputum production, leg swelling, PND, orthopnea. Preliminary workup has been essentially nonrevealing. Patient was ruled out for PE with is CT angiogram, bilateral lower extremity venous Doppler was negative for venous thrombosis. Troponins x3 were undetectable. Patient has been admitted for further evaluation management and treatment. FINDINGS: CHEST CTA: No aneurysm or dissection of the aorta. Changes of coronary artery bypass grafting are noted. There is mild emphysema. There is mild dependent atelectasis. No pleural effusion or pneumothorax. Cardiomegaly is noted. There are no pathologically enlarged thoracic lymph nodes. There is severe thoracic spondylosis. ABDOMEN AND PELVIS CTA: No aneurysm or dissection of the abdominal aorta. The celiac axis, superior mesenteric artery, and inferior mesenteric artery are normal at their origins. There are single renal arteries. Cysts of the liver measure up to 4.3 cm in the left hepatic lobe. The spleen and pancreas are normal. There are changes of cholecystectomy with chronic marked enlargement of the common bile duct and central intrahepatic bile ducts. The adrenal glands and kidneys are unremarkable. No pathologically enlarged abdominal or pelvic lymph nodes are identified. No free intraperitoneal gas or evidence of bowel obstruction. A large volume of colonic stool is present.? There is moderate lumbar spondylosis. IMPRESSION: 1. No aneurysm or dissection of the aorta. 2. Constipation. EXAMINATION: XR chest 2V DATE: 03/20/2023 15:51 INDICATION: Chest pain TECHNIQUE: PA and lateral views of the chest are obtained. COMPARISON: 02/21/2023 FINDINGS: The lungs are free of acute opacities. No pleural effusion or pneumothorax. The heart size is normal. Median sternotomy wires and mediastinal surgical clips are seen, likely from prior coronary artery bypass grafting. Neurostimulator leads and in the central spinal canal. There is moderate thoracic spondylosis. There are changes of anterior fusion procedure in the lower cervical spine. IMPRESSION: 1. No acute cardiopulmonary abnormality. EXAMINATION: US venous doppler LE DATE: 03/20/2023 19:50 INDICATION: Bilateral lower limb pain, chest pain TECHNIQUE: Nunes scale images without and with compression and Doppler images of the bilateral lower extremity veins were obtained. COMPARISON: 10/08/2019, 03/27/2017 FINDINGS: The right common femoral vein, profunda femoral vein, femoral vein, popliteal vein, peroneal trunk, posterior tibial veins, and greater saphenous vein are patent. The left common femoral vein, profunda femoral vein, femoral vein, popliteal vein, peroneal trunk, posterior tibial veins, and greater saphenous vein are patent. IMPRESSION: 1. Patent bilateral lower extremity veins. No evidence of deep venous thrombosis. Review of Systems Review of Systems: Pain in between her shoulder blades with radiation around to the front on the chest on the left side on the breast line, weird taste in her mouth, has been taking cephalexin after tooth extraction. Constitutional: Const
--- NOTE | 2023-03-20 22:06 | ADMGEN ---
2200: This patient, Natalie Millan, was admitted to IMU Room 205-02. Patient/family oriented to hospital policies and general routines including ID bracelet, bed and alarms, visiting hours, pain management, procedures, bathroom and other care routines, personal items, smoking policy, room service/diet, and visiting hours. Information on how to activate the Rapid Response Team has been discussed. Patient/Family are encouraged to report perceived risks to care and to ask questions if they do not understand what they are told or what they should do.
[2023-03-20 22:31] LABS: Troponin I < 0.012 ng/mL (0.000-0.034)
[2023-03-21] VITALS (19 sets, daily range): BP systolic 114–169; BP diastolic 38–65; PULSE 48–67; RESP 16–19; TEMP 36.2–36.6; O2SAT 90–98
--- NOTE | 2023-03-21 | ECHO_ITS ---
Patient Info Name: Natalie Millan Age: 72 years : 1950 Gender: Female Ht: 61 in Wt: 120 lbs BSA: 1.54 m2 BP: 114 / 41 mmHg Heart Rhythm: Atrial Flutter Technical Quality: Fair Exam Date: 03/21/2023 12:36 PM Exam Location: [facility] Pulmonary Patient Status: Outpatient Admit Date: 03/20/2023 Staff Ordering Physician: Rosibel Lagos MD Corporate Responsibility Officer: Megha Carrillo RDCS Attending Provider: Rosibel Lagos MD Referring Physician: Yolis HARGROVE; Exam Type: CA echo dop color flow w con Study Info Indications - aortic stenosis Complete two-dimensional, color flow and Doppler transthoracic echocardiogram is performed with contrast to opacify the left ventricle and to improve the deliniation of the left ventricle endocardial borders. Contrast/Agitated Saline Contrast/Ag. Saline: Definity Amount: 2.00 ml Administered By: Megha Carrillo RDCS Existing IV Access: Yes IV Access Condition: patent with no signs of infiltration Summary 1. Left ventricular chamber dimension is normal. 2. Left ventricular systolic function is normal, estimated at 65-70%. 3. There is mildly increased left ventricular wall thickness. 4. The left ventricular diastolic function is grade II diastolic dysfunction. 5. The aortic valve is bicuspid. 6. There is mild to moderate aortic valve stenosis with a peak velocity of 253.11 cm/s, mean gradient of 11 mmHg, and aortic valve area of 1.45 cm2. 7. There is mild mitral valve regurgitation. 8. There is mild tricuspid valve regurgitation. 9. Mild pulmonary hypertension, estimated pulmonary arterial systolic pressure is 40 mmHg. 10. There is mild pulmonic regurgitation. Left Ventricle Left ventricular chamber dimension is normal. Left ventricular systolic function is normal, estimated at 65-70%. There is mildly increased left ventricular wall thickness. The left ventricular diastolic function is grade II diastolic dysfunction. Right Ventricle Right ventricular chamber dimension is normal. Right ventricular systolic function is normal. Left Atria Left atrial chamber dimension is moderately enlarged. Right Atria Right atrial chamber dimension is normal. Atrial Septum Intact interatrial septum visualized by color flow imaging. Aortic Valve The aortic valve is bicuspid. There is mild to moderate aortic valve stenosis with a peak velocity of 253.11 cm/s, mean gradient of 11 mmHg, and aortic valve area of 1.45 cm2. There is trace aortic valve regurgitation. Pulmonic Valve The pulmonic valve is normal. There is no pulmonic valve stenosis. There is mild pulmonic regurgitation. Mitral Valve There is no mitral valve stenosis. There is mild mitral valve regurgitation. Normal appearance of mitral valve. Tricuspid Valve The tricuspid valve leaflets are normal. There is no significant tricuspid valve stenosis. There is mild tricuspid valve regurgitation. Mild pulmonary hypertension, estimated pulmonary arterial systolic pressure is 40 mmHg. Pericardium/Pleural The pericardium appears normal. There is no pericardial effusion. Inferior Vena Cava Normal inferior vena cava with <50% collapse upon inspiration consistent with elevated right atrial pressure, 10 mmHg. Aorta The aortic root size at the sinus of Valsalva is normal. Left Ventricular Outflow Tract Name Value Normal LVOT 2D
[2023-03-21] MEDS: CEPHALEXIN 500 MG CAPSULE PO ×3 (00:33→16:55)
[2023-03-21] MEDS: PANTOPRAZOLE 40 MG TABLET PO ×2 (00:33→20:53)
[2023-03-21] MEDS: DULoxetine HCL 20 MG CAPSULE.DR PO ×3 (00:33→16:54)
[2023-03-21] MEDS: GABAPENTIN 300 MG CAPSULE 600 MG PO ×3 (00:34→16:54)
[2023-03-21] MEDS: MORPHINE SULFATE (*CRX) 60 MG TABCR PO ×3 (00:34→20:53)
[2023-03-21] MEDS: ALPRAZolam (*CRX) 0.5 MG TABLET PO ×2 (00:35→15:22)
--- NOTE | 2023-03-21 02:33 | ECG_ITS ---
Measurements Intervals [place] Rate: 53 P: 259 [place]: 366 QRS: 59 QRSD: 82 T: 53 QT: 449 QTc: 422 Interpretive Statements ARTIFACT LIMITS INTERPRETATION PROBABLE SINUS RHYTHM ABNORMAL ECG COMPARED TO ECG 03/20/2023 15:24:16 NO SIGNIFICANT CHANGES Electronically Signed On 03-21-2023 10:32:15 CDT by Anibal Cline M.D.
[2023-03-21] MEDS: MORPHINE SULFATE (*CRX) 2 MG/ML INJ 1 MG IV PUSH (02:58)
--- NOTE | 2023-03-21 03:38 | PC.NURSE ---
0258: -RN scanned patient and 1mg of IVP morphine. -When RN attempted to save documentation [facility] stated she couldn't due to the chart being open by another user, MD Lagos. -RN contacted MD Lagos and relayed the error. -MD Lagos stated that she was dictating in the patient's chart but was heading to another floor and couldn't go back to her computer to resolve the issue. RN stated she couldn't chart the administration. stated she had to go and hung up. -RN administered the medication. Betsy Lopez RN witnessed.
[2023-03-21] MEDS: ACETAMINOPHEN 500 MG TABLET PO (09:21)
[2023-03-21] MEDS: ROSUVASTATIN 10 MG TABLET 40 MG PO (09:21)
--- NOTE | 2023-03-21 10:55 | PC.NURSE ---
Pt had a 10 beat run of v-tach today at 1040 am today she was asymptomatic at the time, HR now is [address] Macario with no answer at this time.
[2023-03-21] MEDS: ONDANSETRON HCL ODT 4 MG TABLET PO (11:29)
--- NOTE | 2023-03-21 11:35 | PC.NURSE ---
Dr Macario made aware of run of SVT today and gave order to monitor for now.
[2023-03-21] MEDS: PERFLUTREN LIPID MICROSPHERES 1.5 ML VIAL DILUTED TO 10 ML TOTAL VOLUME IV PUSH (13:00)
--- NOTE | 2023-03-21 13:50 | IVDEFINITY ---
Prior to administration of IV Definity the patient was educated on the risks and benefits of the imaging enhancing agent including potential adverse side effects. The patient verbalized understanding. Allergies were verified. No exclusion criteria were identified and at least one of the following inclusion criteria were met: 1) physician request, 2) patient technically difficult to image (per the [place] [employer] guidelines of two or more segments not discernable within the apical view), or 3) questionable left ventricular function. ?
--- NOTE | 2023-03-21 14:48 | PM.IMPN ---
Progress Note: A&P Assessment and Plan (1) Chest pain: Qualifiers: Chest pain type: unspecified Qualified Code(s): R07.9 - Chest pain, unspecified Code(s): R07.9 - Chest pain, unspecified Status: Acute Plan 72F w/ PMH HLD, HTN, CAD s/p CABG and stents, depression, dementia, anemia, DJD, GERD, osteoporosis, PVD, brain aneurysm s/p clips, presents with chest pain between her shoulders, radiating to the front, stabbing. Admitted on 03/20/23 1) chest pain - resolved. zenon scan tomorrow AM. - was not on aspirin at home, she said she had too many medications and didn't want to take it anymore. educated her. start aspirin daily. cont statin 2) DJD. RLE pain - this is chronic for her. she takes morphine already. she was amenable to try capsaicin cream full code stable. [facility] Subjective Date/time seen: 03/21/23 14:48 Interval history: NAOE. chest pain has resolved on its own. pt is symptom free. she is amenable to getting stress test tomorrow AM Review of Systems Cardiovascular: Cardiovascular: Denies chest pain and Denies dyspnea Respiratory: Respiratory: Denies cough and Denies dyspnea Gastrointestinal: Gastrointestinal: Denies abdominal pain and Denies vomiting Exam Const: General: no acute distress, alert and Physically active Resp: Effort & Inspection: normal respiratory effort Auscultation: clear to auscultation bilaterally Cardio: Rate: regular rate Rhythm: regular rhythm Heart sounds: S1 normal heart sound present and S2 normal heart sound present GI: Inspection: non-distended GI Palp: No abdominal tenderness Auscultation: normal bowel sounds Extrem: Right upper extremity: no edema Objective Data Vital Signs Vital Signs: Vital Signs - 24 hr 03/20/23 15:30 03/20/23 16:51 03/20/23 16:54 Temperature 98.4 F Pulse Rate 52 L 65 Respiratory Rate 16 14 Blood Pressure 172/71 H Pulse Oximetry 98 98 Oxygen Delivery Room Air 03/20/23 16:56 03/20/23 17:00 03/20/23 17:01 Temperature Pulse Rate 62 55 L 59 L Respiratory Rate 14 12 12 Blood Pressure 177/60 H 168/90 H Pulse Oximetry 97 99 100 Oxygen Delivery 03/20/23 17:02 03/20/23 17:15 03/20/23 17:16 Temperature Pulse Rate 59 L 50 L 50 L Respiratory Rate 19 15 17 Blood Pressure 158/54 H Pulse Oximetry 100 94 95 Oxygen Delivery 03/20/23 18:15 03/20/23 18:42 03/20/23 18:44 Temperature Pulse Rate 57 L 51 L 70 Respiratory Rate 16 14 Blood Pressure 169/73 H Pulse Oximetry 98 94 93 Oxygen Delivery 03/20/23 18:45 03/20/23 18:46 03/20/23 19:00 Temperature Pulse Rate 63 62 71 Respiratory Rate 15 16 18 Blood Pressure 148/71 H Pulse Oximetry 95 94 92 Oxygen Delivery 03/20/23 19:01 03/20/23 19:18 03/20/23 19:30 Temperature Pulse Rate 65 53 L 66 Respiratory Rate 17 15 11 L Blood Pressure 137/79 Pulse Oximetry 97 94 Oxygen Delivery 03/20/23 19:31 03/20/23 19:45 03/20/23 19:46 Temperature Pulse Rate 74 61 63 Respiratory Rate 15 12 Blood Pressure 158/81 H 169/64 H Pulse Oximetry 94 98 96 Oxygen Delivery 03/20/23 22:00 03/21/23 00:09 03/21/23 02:29 Temperature 97.1 F L 97.4 F L 97.7 F Pulse Rate 62 57 L 56 L Respiratory Rate 18 18 18 Blood Pressure 149/65 H 158/54 H 169/55 H Pulse Oximetry 96 98 94 Oxygen Delivery 03/21/23 00:00 03/21/23 04:09 03/21/23 04:00 Temperature 97.1 F L Pulse Rate 56 L Respiratory Rate 16 Blood Pressure 114/41 L Pulse Oximetry 97 Oxygen Delivery Room Air Room Air 03/21/23 06:00 03/21/23 04:00 03/21/23 02:00 Temperature Pulse Rate 54 L 54 L 50 L Respiratory Rate Blood Pressure Pulse Oximetry Oxygen Delivery 03/21/23 07:25 03/21/23 08:00 03/21/23 10:00 Temperature 97.9 F Pulse Rate 61 56 L 54 L Respiratory Rate 16 Blood Pressure 167/64 H Pulse Oximetry 94 Oxygen Delivery 03/21/23 11:25 03/21/23 12:00 03/21/23 12:00 Temperature 97.5 F L
[2023-03-21] MEDS: HEPARIN SODIUM 5,000 UNITS/ML VIAL 5000 UNITS SUB-Q (20:53)
[2023-03-22] VITALS (11 sets, daily range): BP systolic 104–140; BP diastolic 39–50; PULSE 48–99; RESP 16–20; TEMP 36.1–36.5; O2SAT 91–95
--- NOTE | 2023-03-22 | EST_ITS ---
Patient Info Name: Natalie Millan Age: 72 years : 1950 Gender: Female Ht: 61 in Wt: 121 lbs BSA: 1.54 m2 HR: 63 bpm BP: 152 / 72 mmHg Heart Rhythm: Sinus Rhythm Exam Date: 03/22/2023 9:46 AM Exam Location: [facility] Stress Patient Status: Outpatient Admit Date: 03/20/2023 Staff Ordering Physician: Vonda Macario MD Attending Provider: Rosibel Lagos MD Exercise Technologist: Shira Curran, CT Nurse: Annie Suazo APN Exam Type: CA stress zenon w NM Study Info Indications R07.89 - Other chest pain A regadenoson stress test was performed. Summary 1. No abnormal ST/T wave changes diagnostic of ischemia with Lexiscan. 2. Frequent PACs. 3. Please correlate with nuclear medicine images, reported separately. 4. Stress test supervised by Annie Suazo NP. Stress test interpreted by Jacinta Nash MD. Protocol: Lexiscan Stress ECG Details Stage: REST Duration (min): 1 min : 44 sec HR (bpm): 62 SBP (mmHg): 152 DBP (mmHg): 72 Stage: REST Duration (min): 7 min : 11 sec HR (bpm): 65 SBP (mmHg): 152 DBP (mmHg): 72 Stage: STAGE 1 Duration (min): 1 min : 0 sec HR (bpm): 83 SBP (mmHg): 174 DBP (mmHg): 64 Stage: RECOVERY Duration (min): 1 min : 0 sec HR (bpm): 98 SBP (mmHg): 174 DBP (mmHg): 64 Stage: RECOVERY Duration (min): 2 min : 0 sec HR (bpm): 98 SBP (mmHg): 174 DBP (mmHg): 64 Stage: RECOVERY Duration (min): 3 min : 0 sec HR (bpm): 94 SBP (mmHg): 154 DBP (mmHg): 74 Stage: RECOVERY Duration (min): 3 min : 39 sec HR (bpm): 100 SBP (mmHg): 154 DBP (mmHg): 74 Rest HR: 65 bpm Peak HR: 100 bpm Rest Sys BP: 152 mmHg Peak Sys BP: 174 mmHg Max Pred HR: 146 bpm % Max Pred HR: 68 % Target HR: 124 bpm Max RPP: 17,400 bpm*mmHg Total Time: 1 min : 0 sec Rest Chowdary BP: 72 mmHg Peak Chowdary BP: 64 mmHg Total Dose: 0.4 mg Resting ECG Sinus rhythm. Stress ECG Sinus tachycardia. No abnormal ST/T wave changes diagnostic of ischemia with Lexiscan. Arrhythmias Frequent PACs. Report Signatures
[2023-03-22] MEDS: CEPHALEXIN 500 MG CAPSULE PO ×2 (00:03→05:49)
[2023-03-22 05:24] LABS: Basophils Percent Auto 0.4 % (0.2-1.2); Eosinophils Absolute Auto 0.1 K/mm3 (0-0.3); Eosinophils Percent Auto 1.7 % (0-4.4); Hematocrit 38.4 % (37.0-47.0); Hemoglobin 12.1 g/dL (12.0-15.0); Immature Granulocyte Absolute 0.01 K/mm3 (0.00-0.031); Immature Granulocyte Percent A 0.2 % (0-0.5); Lymphocytes Absolute Auto 2.27 K/mm3 (0.9-3.2); Lymphocytes Percent Auto 47.2 % (18.3-44.2); Mean Corpuscular HGB Conc 31.5 g/dl (32-36); Mean Corpuscular Hemoglobin 30.3 pg (26-34); Mean Platelet Volume 12.4 fl (7.4-10.4); Monocytes Absolute Auto 0.3 K/mm3 (0.1-0.6); Monocytes Percent Auto 6.7 % (2.6-8.5); Neutrophils Absolute Auto 2.1 K/mm3 (1.3-6.7); Neutrophils Percent Auto 43.8 % (45.5-73.1); Platelet Count Result 123 k/mm3 (150-375); Red Cell Distribution Width 12.9 % (11.5-14.5); White Blood Count 4.8 K/mm3 (4.5-10.0)
[2023-03-22 05:32] LABS: Anion Gap 5 mmol/L (8-16); Blood Urea Nitrogen 23 mg/dL (7-17); Calcium 8.8 mg/dL (8.4-10.2); Carbon Dioxide 32 mmol/L (22-30); Chloride 102 mmol/L (98-107); Estimated CRCL calculation 53 ml/min; Estimated Glomerular Filt Rate > 60; Glucose 88 mg/dL (65-110); Potassium 3.9 mmol/L (3.4-5.0); Sodium 139 mmol/L (137-145)
[2023-03-22] MEDS: DULoxetine HCL 20 MG CAPSULE.DR PO (08:31)
[2023-03-22] MEDS: CYANOCOBALAMIN 1,000 MCG TABLET 1000 MCG PO (08:31)
[2023-03-22] MEDS: ASPIRIN 81 MG ENTERIC TABLET PO (08:31)
[2023-03-22] MEDS: GABAPENTIN 300 MG CAPSULE 600 MG PO (08:31)
[2023-03-22] MEDS: ACETAMINOPHEN 500 MG TABLET PO (08:31)
[2023-03-22] MEDS: MORPHINE SULFATE (*CRX) 60 MG TABCR PO (08:32)
[2023-03-22] MEDS: HEPARIN SODIUM 5,000 UNITS/ML VIAL 5000 UNITS SUB-Q (08:32)
[2023-03-22] MEDS: ROSUVASTATIN 10 MG TABLET 40 MG PO (08:32)
[2023-03-22] MEDS: ALPRAZolam (*CRX) 0.5 MG TABLET PO (10:57)
--- NOTE | 2023-03-22 12:43 | PM.IMPN ---
Progress Note: A&P Assessment and Plan (1) Chest pain: Qualifiers: Chest pain type: unspecified Qualified Code(s): R07.9 - Chest pain, unspecified Code(s): R07.9 - Chest pain, unspecified Status: Acute (2) Right knee pain: Code(s): M25.561 - Pain in right knee Status: Resolved (3) Weakness: Code(s): R53.1 - Weakness Status: Acute Plan 72F w/ PMH HLD, HTN, CAD s/p CABG and stents, depression, dementia, anemia, DJD, GERD, osteoporosis, PVD, brain aneurysm s/p clips, presents with chest pain between her shoulders, radiating to the front, stabbing. Admitted on 03/20/23 1) chest pain - resolved. lexiscan negative. CTM - was not on aspirin at home, she said she had too many medications and didn't want to take it anymore. educated her. restarted aspirin 03/21. aspirin daily. cont statin - pt aware of risk of bleeding with hx of brain aneurysm, but she can recall being told not to take blood thinners. she also is amenable to aspirin and aware of the risks. 2) CAD cont aspirin and statin b mark, yuan arb not on home list. BP and heart rate too low. will monitor, should have cardiology follow up as well 3) DJD. RLE pain - this is chronic for her. she takes morphine already. she was amenable to try capsaicin cream. check r KNEE x ray. 4) weakness - consult PT - d/c prn xanax - pt unwilling to decrease her morphine dose for chronic pain. opioid dependence full code stable. [facility] Subjective Date/time seen: 03/22/23 12:43 Interval history: NAOE. she complains of weakness. she has chronic right knee pain and requests evaluation of that. otherwise, no chest pain or shortness of breath Review of Systems Constitutional: Constitutional: Reports as per HPI Exam Const: General: comfortable and no acute distress Resp: Effort & Inspection: normal respiratory effort Cardio: Rate: regular rate Rhythm: regular rhythm : Bimanual exam- vagina & uterus: bladder normal to palpation Extrem: General: no edema Other: globally weak 4/5 motor strength through. sensation of RLE intact, pulses intact. osteoarthritic changes and post surgical scar of anterior right knee Objective Data Vital Signs Vital Signs: Vital Signs - 24 hr 03/21/23 14:00 03/21/23 16:00 03/21/23 16:00 Temperature Pulse Rate 63 66 Respiratory Rate Blood Pressure Pulse Oximetry Oxygen Delivery Room Air 03/21/23 16:23 03/21/23 18:00 03/21/23 19:49 Temperature 97.5 F L 97.6 F Pulse Rate 67 59 L 48 L Respiratory Rate 19 16 Blood Pressure 116/49 L 126/38 L Pulse Oximetry 90 92 Oxygen Delivery 03/21/23 20:00 03/21/23 20:00 03/21/23 23:55 Temperature 97.4 F L Pulse Rate 52 L 52 L Respiratory Rate 16 Blood Pressure 126/51 L Pulse Oximetry 92 Oxygen Delivery Room Air 03/21/23 22:00 03/22/23 00:00 03/22/23 00:00 Temperature Pulse Rate 58 L 55 L Respiratory Rate Blood Pressure Pulse Oximetry Oxygen Delivery Room Air 03/22/23 04:00 03/22/23 02:00 03/22/23 04:00 Temperature 97.6 F Pulse Rate 48 L 54 L 51 L Respiratory Rate 16 Blood Pressure 104/39 L Pulse Oximetry 92 Oxygen Delivery 03/22/23 04:00 03/22/23 05:47 03/22/23 07:59 Temperature 97.1 F L Pulse Rate 59 L 64 Respiratory Rate 18 Blood Pressure 140/49 L Pulse Oximetry 95 Oxygen Delivery Room Air 03/22/23 12:04 Temperature 97.0 F L Pulse Rate 58 L Respiratory Rate 20 Blood Pressure 114/42 L Pulse Oximetry 91 Oxygen Delivery Intake/Output Intake/Output: Intake & Output 03/19/23 03/20/23 03/21/23 03/22/23 23:59 23:59 23:59 23:59 Intake Total 1820 350 Output Total 1250 450 Balance 570 -100 Meds/Results Medications: Active Medications Generic Name Dose Route Start Last Admin Trade Name Freq PRN Reason Stop Dose Admin Acetaminophen 500 mg 03/21/23 09:00 03/22/23 08:31 Acetaminophen 500 Mg Tablet PO
--- NOTE | 2023-03-22 16:57 | PM.DS ---
DS: Admitting Diagnosis Discharge Date 03/22 Admitting Diagnosis chest pain DS: Discharge Diagnosis Discharge Diagnosis (1) Weakness: Code(s): R53.1 - Weakness Status: Acute (2) Chest pain: Qualifiers: Chest pain type: unspecified Qualified Code(s): R07.9 - Chest pain, unspecified Code(s): R07.9 - Chest pain, unspecified Status: Acute DS: Summary Hospital Course Hospital Course: 72F w/ PMH HLD, HTN, CAD s/p CABG and stents, depression, dementia, anemia, DJD, GERD, osteoporosis, PVD, brain aneurysm s/p clips, presents with chest pain between her shoulders, radiating to the front, stabbing. The pain resolved on its own, she had ACS ruled out and lexiscan was negative. pt was restarted on her ASA daily. she was discharged home on 03/22 to her baseline condition with home health ordered. she is to follow up with PCP and then cardiology thereafter. Time Spent with Patient Time attestation: Total time spent providing and/or coordinating discharge services: Time spent: Greater than 30 minutes Exam Const: General: cooperative and no acute distress Resp: Effort & Inspection: normal respiratory effort Auscultation: clear to auscultation bilaterally Cardio: Rate: regular rate Rhythm: regular rhythm Heart sounds: S1 normal heart sound present and S2 normal heart sound present GI: GI Palp: No abdominal tenderness Auscultation: normal bowel sounds DS: Data Data Completed and Pending Labs on day of discharge: Labs from last 24 hours 03/22/23 04:26 WBC 4.8 RBC 4.00 L Hgb 12.1 Hct 38.4 MCV 96.0 MCH 30.3 MCHC 31.5 L RDW 12.9 Plt Count 123 L MPV 12.4 H Immature Gran % (Auto) 0.2 Neut % (Auto) 43.8 L Lymph % (Auto) 47.2 H Davie % (Auto) 6.7 Eos % (Auto) 1.7 Baso % (Auto) 0.4 Lymph # (Auto) 2.27 Davie # (Auto) 0.3 Eos # (Auto) 0.1 Baso # (Auto) 0.0 Abs Immat Gran (auto) 0.01 Absolute Neuts (auto) 2.1 Absolute Nucleated RBC 0.0 Nucleated RBC % 0.0 Sodium 139 Potassium 3.9 Chloride 102 Carbon Dioxide 32 H Anion Gap 5 L BUN 23 H Creatinine 0.60 L Estim Creat Clear Calc 53 Estimated GFR > 60 Glucose 88 Calcium 8.8 Discharge Plan Discharge Attending physician on discharge: Vonda Macario Discharging Clinician: Vonda Macario Patient Disposition: Home Health Service Activity: no preference Diet: as tolerated Discharge Instructions: Per Care Coordination, patient to discharge with [facility] ([phone]) for PT/OT and fci services. Start of care week of 03/25/23. Agency will call to arrange the initial admission visit. Patient Instructions: Antibiotic Form, Chest Pain (GEN), How to Stop Smoking (DC) Stand Alone Forms: General Discharge Information Follow-up/Referrals: Abdiel Butcher MD [Primary Care Provider] - Discharge Medications: New aspirin 81 mg Tablet,Delayed Release (Dr/Ec) 81 mg PO QAM Qty: 90 0RF Continued alprazolam 0.5 mg tablet 0.5 mg PO TID PRN (Reason: anxiety) Qty: 90 0RF fexofenadine [Swapna Allergy] 180 mg Tablet 180 mg PO DAILY PRN (Reason: Allergy Symptoms) Patient Comments: pt states she doesn't need it right now rosuvastatin [Crestor] 40 mg Tablet 40 mg PO QAM Praluent Pen 75 mg/mL Pen Injector 75 mg SUBCUT [id number] Patient Comments: Takes just once on Sundays gabapentin 300 mg capsule 600 mg PO BID polyethylene glycol 3350 [Miralax] 17 gram/dose powder 17 g PO DAILY PRN (Reason: Constipation) duloxetine 20 mg capsule,delayed release(DR/EC) 20 mg PO BID Rx Instructions: TAKE 1 CAPSULE BY MOUTH TWICE A DAY START AFTER STOPPING MIRTAZAPINE dexlansoprazole 60 mg capsule,biphase delayed releas 60 mg PO HS acetaminophen 500 mg Capsule 500 mg PO QAM cyanocobalamin (vitamin B-12) 1,000 mcg Capsule 1,000 mcg PO DAILY ezetimibe 10 mg tablet 10 mg PO D
== END 2023-03-22 17:30 | disposition home health service (06) ==
LOC: ANHED 21:08 → ANHIMU 22:41
PROVIDERS: Emergency Medicine; Admitting Provider Internal Medicine; Emergency Provider Student in an Organized Health Care Education/Training Program; PCP Family Medicine Adolescent Medicine; Visit Provider General Practice
DX: R53.1 Weakness (principal); R07.9 Chest pain, unspecified; M79.662 Pain in left lower leg; M79.661 Pain in right lower leg; R25.2 Cramp and spasm; I25.2 Old myocardial infarction; K21.9 Gastro-esophageal reflux disease without esophagitis; I25.10 Atherosclerotic heart disease of native coronary artery without angina pectoris; Z95.1 Presence of aortocoronary bypass graft; F03.90 Unspecified dementia, unspecified severity, without behavioral disturbance, psychotic disturbance, mood disturbance, and anxiety; F32.A Depression, unspecified; F41.9 Anxiety disorder, unspecified; K59.00 Constipation, unspecified; M81.0 Age-related osteoporosis without current pathological fracture; E78.5 Hyperlipidemia, unspecified; R94.31 Abnormal electrocardiogram [ECG] [EKG]; I67.1 Cerebral aneurysm, nonruptured; I80.3 Phlebitis and thrombophlebitis of lower extremities, unspecified; M19.09 Primary osteoarthritis, other specified site; I73.9 Peripheral vascular disease, unspecified; G62.9 Polyneuropathy, unspecified; R56.9 Unspecified convulsions; Z96.82 Presence of neurostimulator; G89.29 Other chronic pain; R53.83 Other fatigue; R21 Rash and other nonspecific skin eruption; K12.30 Oral mucositis (ulcerative), unspecified; Z87.891 Personal history of nicotine dependence; F11.90 Opioid use, unspecified, uncomplicated; Z79.1 Long term (current) use of non-steroidal anti-inflammatories (NSAID); Z79.899 Other long term (current) drug therapy; Z82.49 Family history of ischemic heart disease and other diseases of the circulatory system; Z81.8 Family history of other mental and behavioral disorders
CPT/HCPCS: 36415; 71046; 71275; 73562; 74174; 78452; 80048; 80053; 81001; 83690; 84484; 85025; 85610; 85730; 93005; 93017; 93970; 96372; 96374; 96375; 96376; 99285; A9270; A9502; C8929; G0378; J1644; J2270; J2785; Q9957; Q9967

== ENCOUNTER 2024-05-21 13:26 | Outpatient (CLI) | payer MEDICARE, SELFPAY ==
--- NOTE | ~2024-05-21 | CT_ITS ---
EXAMINATION: CT thoracic lumbar wo con DATE: 05/21/2024 14:17 INDICATION: Radiculopathy. TECHNIQUE: Computed tomography (CT) of the thoracic and lumbar spine was performed without intravenou s contrast. Automated exposure control and iterative reconstruction technique were employed. The dose -length product was 330.36 mGy-cm. COMPARISON: None FINDINGS: CT THORACIC SPINE: There is mild emphysema. Cardiomegaly is noted. There are coronary artery calcific ations. There are cysts in the liver measuring up to 3.9 cm. There is kyphosis of thoracic spine. The re is mild chronic anterior wedging of T5, T6, T7, T8, and T9. There is decreased disc height, severe from T3-T4 through T10-T11. There is multilevel facet joint osteoarthritis, severe at several levels . There is multilevel mild neural foraminal stenosis. On the left, there is moderate neural foraminal stenosis at T9-T10. There is epidural electrodes with tips at T6. CT LUMBAR SPINE: L5 is a transitional segment. Alignment is normal. Vertebral body heights are normal . There is moderately decreased disc height at L1-L2, severely decreased disc height at L2-L3, mildly decreased disc height at L3-L4, and severely decreased disc height at L4-L5. The following disc leve ls are specifically discussed: L1-L2: The disc is bulging. There is severe bilateral facet joint osteoarthritis. There is mild bilat eral neural foraminal stenosis. There is mild central canal stenosis. L2-L3: The disc is bulging. There is severe bilateral facet joint osteoarthritis. There is mild bilat eral neural foraminal stenosis. There is mild central canal stenosis. L3-L4: The disc is bulging. There is severe bilateral facet joint osteoarthritis. There is mild bilat eral neural foraminal stenosis. There is mild central canal stenosis. L4-L5: The disc is bulging. There is severe bilateral facet joint osteoarthritis. There is mild bilat eral neural foraminal stenosis. There is mild central canal stenosis. L5-S1: The disc does not extend beyond the endplate margin. There is no facet joint hypertrophy. Ther e is no neural foraminal stenosis. There is no central canal stenosis. IMPRESSION: 1. Severe thoracic and lumbar spondylosis. Reviewed, dictated and finalized at location A. 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
== END 2024-05-21 13:27 | disposition home or self-care (01) ==
PROVIDERS: PCP Family Medicine Adolescent Medicine; Visit Provider Nurse Practitioner Family
DX: M47.894 Other spondylosis, thoracic region (principal); M47.26 Other spondylosis with radiculopathy, lumbar region
CPT/HCPCS: 72128; 72131

== ENCOUNTER 2024-11-05 13:02 | Outpatient (CLI) | payer MEDICARE, SELFPAY ==
--- OUTSIDE RECORDS SUMMARY | 2024-11-05 13:08 | XMS_ITS | Clinical Summary ---
Author Organization [facility] Address [address] [place] [address] Phone Care Team Providers Care Valve Inspector Name Role Phone Abdiel Butcher MD Primary Care Provider [phone] Allergies Active Allergy Reactions Criticality Noted Date Comments Adhesive Rash Medium 05/05/2019 Latex 05/05/2019 Added based on information entered during log entry, please review and add reactions, type, and severity as needed Morphine Headache Low Penicillins Rash Medium Sulfa (Sulfonamide Antibiotics) Rash Medium 11/29/2016 Unclassified Drug Rash Low 08/09/2018 Medications DULoxetine (CYMBALTA) 60 mg Capsule, Delayed Release(E.C.) Take 60 mg by mouth daily. 2 Active gabapentin (NEURONTIN) 600 mg tablet Take 800 mg by mouth 4 times daily. 5 Active donepezil (ARICEPT) 10 mg tablet Take 10 mg by mouth daily at bedtime. 2 Active memantine (NAMENDA XR) 14 mg Extended Release 24 hour capsule 14 mg 2 times daily. 6 Active rosuvastatin (CRESTOR) 40 mg tablet Take 40 mg by mouth daily at bedtime. 4 Active cycloSPORINE (RESTASIS) 0.05 % emulsion Administer 0.05 % in both eyes 2 times daily. 5 Active clonazePAM (KlonoPIN) 1 mg tablet Take 1 mg by mouth daily at bedtime. 2 Active ezetimibe (ZETIA) 10 mg tablet Take 10 mg by mouth daily at bedtime. 2 Active alirocumab (PRALUENT PEN) 75 mg/mL Pen Injector INJECT 1 ML UNDER THE SKIN EVERY 2 WEEKS IN THE ABDOMEN, THIGH, OR UPPER ARM ROTATING INJECTIONS SITES 8 Active ALPRAZolam (XANAX) 0.25 mg tablet Take 0.25 mg by mouth 3 times daily as needed. 2 Active nitroglycerin (NITROSTAT) 0.4 mg Tablet, Sublingual 0.4 mg. 3 Active codeine-butalbi xnj-cpalbuy-sls feine (ASCOMP WITH CODEINE) 15-04-207-40 mg capsule take 1 capsule by oral route every 4 hours as needed not to exceed 6 capsules per 24hrs 2 Active fluticasone propionate (FLONASE) 50 mcg/spray [place], Suspension nasal inhaler 1 [place] 1 time daily as needed. 8 Active diphenhydramine HCl (BENADRYL ORAL) Take by mouth. Activ e ibandronate (BONIVA) 150 mg tablet Take 150 mg by mouth every 30 days. Active oxyCODONE-aceta minophen (PERCOCET) 5-325 mg tablet Take 1 Tablet by mouth every 4 hours as needed for Pain, Moderate. Active oxyCODONE (ROXICODONE) 15 mg tablet Take 15 mg by mouth every 6 hours. Active fexofenadine (ALLERGY RELIEF) 180 mg tablet Take 180 mg by mouth 1 time daily as needed for Allergies. Active pantoprazole sodium (PANTOPRAZOLE ORAL) Take by mouth 1 time daily as needed. Active tiZANidine (ZANAFLEX) 4 mg Tablet Take 1 Tablet (4 mg) by mouth every 8 hours as needed for Spasm. 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 40 Tablet 9 Active alirocumab (Praluent Pen) 75 mg/mL Pen Injector Inject 75 mg by subcutaneous injection every 2 weeks. 2 mL 3 04/09/2023 12:31 PM CDT 3 Active alirocumab (Praluent Pen) 75 mg/mL Pen Injector Inject 75 mg by subcutaneous injection every 2 weeks. 2 mL 5 11/02/2024 12:50 PM CDT 5 Active Active Problems Problem Noted Date Diagnosed Date Lumbar spondylosis 09/10/2018 Resolved Problems Problem Noted Date Diagnosed Date Resolved Date Spondylolysis, lumbosacral 08/09/2018 0 09/10/2018 Encounters Date Type Department Care Team Description 11/04/2024 External Device Data ST[facility] ABSTRACTION Provider, Abstract 10/30/2024 External Device Data [facility] ABSTRACTION Provider, Abstract 10/29/2024 External Device Data [facility] ABSTRACTION Provider, Abstract 10/28/2024 External Device Data [facility] ABSTRACTION Provider, Abstract 08/27/2024 External Device Data [facility] ABSTRACTION Provider, Abstract 08/16/2024 External Device Data [facility] ABSTRACTION Provider, Abstract 08/15/2024 External Device Data [facility] ABSTRACTION Provider, Abstract 08/12/2024 External Device Data [facility] ABSTRACTION Provider, Abstract from Last 3 Months Family History Medical History Relation Name Comments Heart Attack Brother High Cholesterol Brother Hodgkin's lymphoma Brother Heart Failure Father Arthritis-osteo Mother Osteoporosis Mother Heart Attack Sister High Cholesterol Sister Relation Name Status Comments Brother Father Mother Alive Sister Alive Social History Tobacco Use Types Packs/Day Years Used Date Smoking Tobacco: Every Day Cigarettes 0.3 35 Started: 06/1983; Last attempted to quit: 06/2018 Alcohol Use Standard Drinks/Week Comments Yes 0 (1 standard drink = 0.6 oz pur e alcohol) social- minimal Comments No Sex and Gender Information Value Date Recorded Sex Assigned at Not on file Legal Sex Female 1:49 PM 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 Gender Identity Not on file Sexual Orientation Not on file Occupation Industry Job Start Date Job End Date retired/disabled Not on file Not on file Not on file Last Filed Vital Signs Vital Sign Reading Time Taken Comments Blood Pressure 105/53 05/06/2019 7:29 AM 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 Pulse 65 05/06/2019 7:29 AM 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 Temperature 36.7 C (98 F) 05/06/2019 7:29 AM 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 Respiratory Rate 14 05/06/2019 3:43 AM 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 Oxygen Saturation 94% 05/06/2019 7:29 AM 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 Inhaled Oxygen Concentration - - Weight 62.1 kg (137 lb) 05/05/2019 7:35 AM 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 Height 156.2 cm (5' 1.5) 04/28/2019 2:09 PM 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 Body Mass Index 25.47 04/28/2019 2:09 PM 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 Plan of Treatment Health Maintenance Due Date Last Done Comments DTAP/TDAP/TD VACCINES (1 - Tdap) 12/09/1967 PNEUMOCOCCAL VACCINE 50+ YEARS (1 of 2 - PCV) 12/08/18 66 COLORECTAL SCREENING 1993 Colorectal Cancer Screening 1993 FIT-DNA Q 3 years 1993 FIT/FOBT Q 1 year 1993 Flex Sig/CT Colonography Q 5 years 1993 ZOSTER VACCINE (1 of 2) 1998 OSTEOPOROSIS SCREENING 2013 RSV VACCINE (60+ or ) (1 - 1-dose 75+ series) 12/09/2023 INFLUENZA VACCINE (#1) 2024 Medical Devices Implanted Type Area Interactive Designer Device Identifier Shelf Expiration Date Model / Serial / Lot [place] Imjex Bumpy [id number] - [id number] Implanted:Qty: 1 on 05/05/2019 by Marcy Chin MD at [facility] [place] N/A: Back [employer]- NEUROLOGIC TECH 01/15/2023 [id number] / / [id number] Patient Controller Intellis Ptm Implanted:Qty: 1 on 05/05/2019 by Marcy Chin MD at [facility] Integral N/A: Back [employer]- NEUROLOGIC TECH [id number] / / [id number] Lead Specify Surescan Mri 65cm [id number] - [id number] Implanted:Qty: 1 on 05/05/2019 by Marcy Chin MD at [facility] Lead N/A: Back [employer]- NEUROLOGIC TECH 01/10/2023 [id number] / / [id number] Battery Generaton Intellis [id number] Implanted:Qty: 1 on 05/05/2019 by Marcy Chin MD at [facility] Other N/A: Back [employer] 03/24/2020 [id number] / / [id number] Patient Operations Analyst Intellis Rtm Implanted:Qty: 1 on 05/05/2019 by Marcy Chin MD at [facility] Other N/A: Back [employer]- NEUROLOGIC TECH [id number] / / [id number] N Floseal Implanted:Qty: 1 on 05/05/2019 by Marcy Chin MD at [facility] N/A: Back SANTOS- 20/20 [employer]THNeitui [id number] 02/11/2020 [id number] / / [id number] Explanted Type Area Interactive Designer Device Identifier Shelf Expiration Date Model / Serial / Lot Spinal Cord Stimulator Explanted:Qty: 1 on 05/05/2019 by Marcy Chin MD at [facility] N/A: Back Electrode Explanted:Qty: 1 on 05/05/2019 by Marcy Chin MD at [facility] N/A: Back Generator Explanted:Qty: 1 on 05/05/2019 by Marcy Chin MD at [facility] N/A: Back Insurance RX A[employer] Medicare Part D RX PHARMACY [email or web address] Commercial Advance Directives For more information, please contact: [phone] Documents on File Type Date Recorded Patient Wiping Cloth Cutter Expl anation Advance Directive POA 08/09/2018 1:47 PM Ad damico Directive POA * Full Code (Latest Code Status on File) Date Activated Date Inactivated Comments 05/05/2019 8:42 AM 05/06/2019 12:51 PM * Full Code Date Activated Date Inactivated Comments 05/05/2019 7:31 AM 05/05/2019 8:42 AM Care Teams Valve Inspector Relationship Specialty Start Date End Date Abdiel Butcher MD PCP - General Family Practice 07/23/18
--- OUTSIDE RECORDS SUMMARY | 2024-11-05 13:08 | XMS_ITS | Encounter Summary ---
Author Organization [facility] Address [address] [place] [address] Care Team Providers Care Optometrist/Practice Owner Name Role Phone Abdiel Butcher MD Primary Care Provider [phone] Encounter Details Date Type Department Care Team (Late st Contact Info) Description 11/04/2024 External Device Data [facility] ABSTRACTION Provider, Abstract NO ADDRESS ON FILE Social History Tobacco Use Types Packs/Day Years Used Date Smoking Tobacco: Every Day Cigarettes 0.3 35 Started: 06/1983; Last attempted to quit: 06/2018 Alcohol Use Standard Drinks/Week Comments Yes 0 (1 standard drink = 0.6 oz pur e alcohol) social- minimal Comments No Sex and Gender Information Value Date Recorded Sex Assigned at Not on file Legal Sex Female 1:49 PM PERIOPERATIVE ASSISTANT Gender Identity Not on file Sexual Orientation Not on file Occupation Industry Job Start Date Job End Date retired/disabled Not on file Not on file Not on file documented as of this encounter Plan of Treatment Not on file documented as of this encounter Visit Diagnoses Not on filedocumented in this encounter Care Teams Optometrist/Practice Owner Relationship Specialty Start Date End Date Abdiel Butcher MD PCP - General Family Practice 07/23/18 documented as of this encounter
--- OUTSIDE RECORDS SUMMARY | 2024-11-05 13:08 | XMS_ITS | Clinical Summary ---
Author Organization [facility] [address] Address [address] [place] [address] Care Team Providers Care Wafer Polishing Worker Name Role Phone Abdiel Butcher MD Primary Care Prov ider Allergies Active Allergy Reactions Criticality Noted Date Comments Adhesive Rash Medium 05/05/2019 Varenicline Other (See comments) Low 03/14/2020 Nightmares Clindamycin Rash Medium 02/25/2019 Latex Rash Medium 03/13/2022 Penicillins Rash Medium Sulfa (Sulfonamide Antibiotics) Rash Medium 11/29/2016 Medications aspirin 81 mg tablet take 1 tablet by oral route every day 0 0 02/26/20 13 Active ezetimibe (ZETIA) 10 mg tablet take 1 Tablet (10MG) by oral route every day 90 3 05/14/[address] (CYMBALTA) 60 mg capsule take 1 capsule (60MG) by oral route every day 0 05/14/20 12 Active Additional Information Patient taking differently: 20 mg oral Daily, Reported on 09/08/2024 fluticasone (FLONASE) 50 mcg/actuation nasal spray 9 03/03/20 18 Active nitroglycerin (NITROSTAT) 0.4 mg SL tabletIndications:Co ronary arteriosclerosis in [place] artery Place 1 tablet (0.4 mg total) under the tongue every 5 (five) minutes as needed for chest pain 25 tablet 03/08/20 20 Active Additional Information Patient not taking.Reported on 09/08/2024 morphine ER (MS CONTIN) 60 mg 12 hr tablet Take 30 mg by mouth 2 (two) times a day 02/29/20 21 Active gabapentin (NEURONTIN) 100 mg capsule Take 3 capsules (300 mg total) by mouth 3 (three) times a day 03/14/20 21 Active fexofenadine (NILA) 180 mg tablet Take 1 tablet (180 mg total) by mouth daily as needed Active ondansetron (ZOFRAN) 4 mg tablet Take 1 tablet (4 mg total) by mouth every 8 (eight) hours as needed for nausea or vomiting Active ketoconazole (NIZORAL) 2 % cream Apply topically daily Active ALPRAZolam (XANAX) 0.25 mg tablet Take 2 tablets (0.5 mg total) by mouth 3 (three) times a day as needed for anxiety or sleep 03/13/20 22 027 Active polyethylene glycol (MIRALAX) 17 gram/dose powder TAKE 17 GRAMS BY MOUTH DAILY 03/21/20 22 Active Praluent Pen 75 mg/mL pen injector Inject 75 mg by subcutaneous injection every 2 weeks. 2 mL 3 12/16/19 23 Active dexlansoprazole (DEXILANT) 60 mg capsule Take 1 capsule (60 mg total) by mouth daily 01/07/20 23 Active benzonatate (TESSALON) 200 mg capsule TAKE 1 CAPSULE BY MOUTH THREE TIMES A DAY NEEDED FOR COUGH 02/05/20 23 Active acetaminophen (TYLENOL) 500 mg tablet Take 1 tablet (500 mg total) by mouth every 6 (six) hours as needed for pain Active cyanocobalamin (Vitamin B-12) 1,000 mcg tabletIndications:Pr evention of Vitamin B12 Deficiency Take 1 tablet (1,000 mcg total) by mouth daily Active rosuvastatin (CRESTOR) 40 mg tablet TAKE 1 TABLET BY MOUTH EVERY DAY 90 tablet 3 05/02/20 23 Active Active Problems Problem Noted Date Diagnosed Date Premature atrial contractions 09/08/2024 History of CHF (congestive heart failure) 2022 Aortic valve stenosis, nonrheumatic 03/26/2021 Chronic pain syndrome 08/27/2017 Tobacco use 11/29/2016 History of coronary artery bypass surgery 2015 Overview (09/14/2016): Hx of CABG Familial hypercholesterolemia 11/16/2015 Overview (09/14/2016): Familial hypercholesterolemia Presence of stent in coronary artery 11/16/2015 Overview (09/14/2016): History of coronary artery stent placement Pure hypercholesterolemia 09/01/2014 Overview (09/14/2016): Pure hypercholesterolemia Resolved Problems Problem Noted Date Diagnosed Date Resolved Date Murmur, heart 03/08/2020 03/26/2021 Arrhythmia 02/24/2019 09/08/2024 Hypercholesterolemia 05/25/2016 025 Overview (09/14/2016): Hypercholesteremia 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[place] artery 09/01/2014 09/08/2024 Overview (09/14/2016): 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 09/01/2014 09/08/2024 Overview (09/14/2016): Arteriosclerosis of autologous vein coronary artery bypass graft Encounters Date Type Department Care Team Description 09/08/2024 11:30 AM CDT Office Visit [facility] [address] [place] [address] Chito Landrum MD History of coronary artery bypass surgery (Primary Dx); Pure hypercholesterolemia; Presence of stent in coronary artery; Familial hypercholesterolemia; History of CHF (congestive heart failure); Aortic valve stenosis, nonrheumatic; Premature atrial contractions; Tobacco use from Last 3 Months Surgical History Surgery Date Site/Laterality Comments OTHER SURGICAL HISTORY brain aneursym clipping, neck surgery, CABG CATARACT EXTRACTION Cataract Surgery CAROTID STENT CORONARY ARTERY BYPASS GRAFT REPLACEMENT TOTAL KNEE BILATERAL COLONOSCOPY UPPER GASTROINTESTINAL ENDOSCOPY CERVICAL SPINE SURGERY BUNIONETTE EXCISION Bilateral Medical History Medical History Date Comments Hx Other Medical viral encephali tis, Cdiff, periph neuropathy, CAD, Hx Other Medical Migraines, OA, rheum fever age 12, tob abuse Hx Other Medical esoph. Dr Brandon pineda 2016; Comments: [facility] 11/16/2015 - Hx Other Medical Chronic pain 2n d back, knees; Comments: [facility] 05/25/2016 - Hx Other Medical Pain stimulator in back; Comments: [facility] 05/25/2016 - Brain aneurysm 1989 Had surgery at M o [facility] GERD (gastroesophageal reflux disease) Gastritis Diverticulosis Liver disease cysts Chronic constipation Dysphagia Hypertension Hyperlipidemia Coronary artery disease Arthritis Cataract Family History Medical History Relation Name Comments Coronary artery disease Brother 2 Alaina nary Artery Bypass Graft; Heart attack Father Myocardial Infa rction; Other Other Familial hyperc holesterolemia; Coronary artery disease Sister 2 Alaina nary Artery Bypass Graft; Relation Name Status Comments Brother 1 Alive Brother 2 Father Alive Other Sister 1 Alive Sister 2 Social History Tobacco Use Types Packs/Day Years Used Date Smoking Tobacco: Every Day Cigarettes Smokeless Tobacco: Never Tobacco Cessation:Ready to Q uit: Not Asked; Counseling Given: Not Answered Comments:Smoking History Packs/day: 1 Packs Alcohol Use Standard Drinks/Week Comments No 0 (1 standard drink = 0.6 oz pur e alcohol) AUDIT-C Answer Date Recorded Q1: How often do you have a drink containing alcohol? Never 03/13/2022 Q2: How many drinks containi ng alcohol do you have on a typical day when you are drinking? Patient does not drink Frequency of Binge Drinking Not on file 08/2021 Comments No Sex and Gender Information Value Date Recorded Sex Assigned at Not on file Legal Sex Female 8:19 AM FINGER BUFFS ASSEMBLER Gender Identity Not on file Sexual Orientation Not on file Obstetrics History Last Filed Vital Signs Vital Sign Reading Time Taken Comments Blood Pressure 124/68 09/08/2024 11:24 AM CDT Pulse 79 09/08/2024 11:24 AM CDT Temperature 36.6 C (97.8 F) 03/13/2022 12:13 PM CDT Respiratory Rate 20 03/13/2022 1:50 PM CDT Oxygen Saturation 95% 09/08/2024 11:24 AM CDT Inhaled Oxygen Concentration - - Weight 51.7 kg (114 lb) 09/08/2024 11:24 AM CDT Height 154.9 cm (5' 1) 09/08/2024 11:24 AM CDT Body Mass Index 21.54 09/08/2024 11:24 AM CDT Plan of Treatment Health Maintenance Due Date Last Done Comments Colon Cancer Screening-Colonoscopy 1950 Depression Screening 1950 Osteoporosis Screening-Bone Density Scan 1948 DTaP/Tdap/Td Vaccine (1 - Tdap) 12/09/1959 Hepatitis B Screening 1966 Pneumococcal vaccine 65+ (1 of 2 - PCV) 12/09/1967 Zoster Vaccine (1 of 2) 1998 Well Visit 65+ 2013 Fall Risk Assessment 03/13/2023 03/13/2022 Covid-19 Vaccine ( season) 2024, 08/03/2020 Influenza Vaccine (Season Ended) 2025 Hepatitis C Screening Completed 04/26/2016 Procedures Procedure Name Priority Date/Time Associated Diagnosis Comments ELECTROCARDIOGRAM REPORT Routine 09/08/2024 3:49 PM CDT History of coronary artery bypass surgery History of CHF (congestive heart failure) Aortic valve stenosis, nonrheumatic Premature atrial contractions POCT LIPID PANEL Routine 09/08/2024 11:19 AM CDT History of coronary artery bypass surgery Pure hypercholesterolemia Familial hypercholesterolemia SERUM HEPATITIS C AB Routine 04/26/2016 3:19 AM FINGER BUFFS ASSEMBLER from Last 3 Months or Most Recently Relevant to Health Maintenance Results * Electrocardiogram Report (09/08/2024 3:49 PM CDT) us Chito Landrum MD ECG ORDERABLES Marilou l Result * POCT lipid panel (09/08/2024 11:19 AM CDT) Cholesterol, POC 150 mg/dL HDL, POC 57 mg/dL Triglycerides, POC 103 mg/dL LDL Cholesterol POC 72 mg/dL Chol/HDL Ratio, POC 1.3 Non-HDL Cholesterol, POC 93 mg/dL Cholesterol Total, POC 150 mg/dL Capillary blood 09/08/2024 1 1:19 AM CDT us Chito Landrum MD POINT OF CARE TEST O RDERABLES Final Result * Serum Hepatitis C ab (04/26/2016 3:19 AM FINGER BUFFS ASSEMBLER) HCV ab NON-REACTI VE NON-REACTI VE CDR HISTORICAL RESULTS Hepatitis signal to cutoff ratio 0.01 <1.00 CDR HISTORICAL RESULTS Serum 04/26/2016 3:19 AM FINGER BUFFS ASSEMBLER Narrative CDR HISTORICAL RESULTS - 04/27/2016 12:00 AM FINGER BUFFS ASSEMBLER Test performed at [employer] [address] [id number] [place] [address] Director: FELICITY CIFUENTES DO,MPH us Historical Provider LAB BLOOD ORDERABLES Marilou gross Result CDR HISTORICAL RESULTS from Last 3 Months or Most Recently Relevant to Health Maintenance Insurance T MEDICARE [employer] MEDICARE Advance Directives For more information, please contact: [phone] * Full Code (Latest Code Status on File) Date Activated Date Inactivated Comments 03/13/2022 12:12 PM 03/13/2022 7:24 PM Care Teams Wafer Polishing Worker Relationship Specialty Start Date End Date Abdiel Butcher MD [address] [place] [address] PCP - General 09/08/16
--- OUTSIDE RECORDS SUMMARY | 2024-11-05 13:08 | XMS_ITS | Referral Summary ---
Author Organization [facility] [address] [facility] [address] [place] [address] Care Team Providers Care Batt Machine Operator Name Role Phone Abdiel Butcher MD Primary Care Prov ider Encounters Date Type Department Care Team Description 09/08/2024 11:30 AM CDT Office Visit [facility] Cardiology [address] [facility] [address] [place] [address] Chito Landrum MD History of coronary artery bypass surgery (Primary Dx); Pure hypercholesterolemia; Presence of stent in coronary artery; Familial hypercholesterolemia; History of CHF (congestive heart failure); Aortic valve stenosis, nonrheumatic; Premature atrial contractions; Tobacco use from Last 3 Months Allergies Active Allergy Reactions Criticality Noted Date [...] 0.4 mg SL tabletIndications:Co ronary arteriosclerosis in [place] artery Place 1 tablet (0.4 mg total) [...] 025 Overview (09/14/2016): Hypercholesteremia 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[place] artery 09/01/2014 09/08/2024 Overview (09/14/2016): 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[place] artery 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 09/01/2014 09/08/2024 Overview (09/14/2016): Arteriosclerosis of autologous vein coronary artery bypass graft Social History Tobacco Use Types Packs/Day Years [...] on file Legal Sex Female 8:19 AM METAL DRAWER Gender Identity Not on file Sexual Orientation Not on file Last Filed Vital Signs [...] 09/08/2024 11:24 AM CDT Plan of Treatment Not on file Procedures Procedure Name Priority Date/Time Associated Diagnosis Comments ELECTROCARDIOGRAM REPORT Routine 09/08/2024 3:49 PM CDT History of coronary artery bypass surgery History of CHF (congestive heart failure) Aortic valve stenosis, nonrheumatic Premature atrial contractions POCT LIPID PANEL Routine 09/08/2024 11:19 AM CDT History of coronary artery bypass surgery Pure hypercholesterolemia Familial hypercholesterolemia SERUM HEPATITIS C AB Routine 04/26/2016 3:19 AM METAL DRAWER from Last 3 Months or Most Recently [...] Capillary blood 09/08/2024 1 1:19 AM CDT Chito Landrum MD POINT OF CARE TEST O RDERABLES Final Result * Serum Hepatitis C ab (04/26/2016 3:19 AM METAL DRAWER) HCV ab NON-REACTI VE NON-REACTI VE CDR HISTORICAL RESULTS Hepatitis signal to cutoff ratio 0.01 <1.00 CDR HISTORICAL RESULTS Serum 04/26/2016 3:19 AM METAL DRAWER Narrative CDR HISTORICAL RESULTS - 04/27/2016 12:00 AM METAL DRAWER Test performed at [facility] [address] [place] [address] Director: FELICITY CIFUENTES DO,MPH Historical Provider LAB BLOOD ORDERABLES Marilou gross Result CDR HISTORICAL RESULTS from Last 3 Months or Most Recently Relevant to Health Maintenance Insurance [facility] Advance Directives For more information, please contact: [phone] * Full Code (Latest Code Status on File) Date Activated Date Inactivated Comments 03/13/2022 12:12 PM 03/13/2022 7:24 PM Care Teams Batt Machine Operator Relationship Specialty Start Date End Date Abdiel Butcher MD [address] [place] [address] PCP - General 09/08/16
[2024-11-05 13:29] LABS: Basophils Percent Auto 0.3 % (0.2-1.2); Eosinophils Absolute Auto 0.1 K/mm3 (0-0.3); Eosinophils Percent Auto 0.9 % (0-4.4); Hematocrit 42.6 % (37.0-47.0); Hemoglobin 13.2 g/dL (12.0-15.0); Immature Granulocyte Absolute 0.01 K/mm3 (0.00-0.031); Immature Granulocyte Percent A 0.1 % (0-0.5); Lymphocytes Absolute Auto 1.42 K/mm3 (0.9-3.2); Lymphocytes Percent Auto 21.1 % (18.3-44.2); Mean Corpuscular Hemoglobin 30.2 pg (26-34); Mean Corpuscular Volume 97.5 fl (80-100); Mean Platelet Volume 12.6 fl (7.4-10.4); Monocytes Absolute Auto 0.3 K/mm3 (0.1-0.6); Monocytes Percent Auto 4.8 % (2.6-8.5); Neutrophils Absolute Auto 4.9 K/mm3 (1.3-6.7); Neutrophils Percent Auto 72.8 % (45.5-73.1); Platelet Count Result 113 k/mm3 (150-375); Red Blood Count 4.37 M/mm3 (4.2-5.4); Red Cell Distribution Width 12.7 % (11.5-14.5); White Blood Count 6.7 K/mm3 (4.5-10.0)
[2024-11-05 13:52] LABS: Vitamin D 25 Hydroxy 44.5 ng/mL
[2024-11-05 18:07] LABS: Alanine Aminotransferase 17 U/L (6-35); Albumin Level 4.5 g/dL (3.5-5.1); Alkaline Phosphatase 59 U/L (38-126); Anion Gap 3 mmol/L (4-12); Aspartate Amino Transferase 32 U/L (14-36); Bilirubin,Total 0.4 mg/dL (0.2-1.3); Blood Urea Nitrogen 20 mg/dL (7-17); Calcium 9.5 mg/dL (8.4-10.2); Carbon Dioxide 34 mmol/L (22-30); Chloride 104 mmol/L (98-107); Cholesterol 111 mg/dL (0-200); Estimated Glomerular Filt Rate > 60; Glucose 83 mg/dL (65-110); HDL Direct 59 mg/dL; Potassium 4.2 mmol/L (3.4-5.0); Sodium 141 mmol/L (137-145); Triglycerides 96 mg/dL (<150)
[2024-11-05 18:26] LABS: LDL Cholesterol Direct < 30 mg/dL
== END 2024-11-05 13:03 | disposition home or self-care (01) ==
PROVIDERS: PCP Family Medicine Adolescent Medicine; Visit Provider Nurse Practitioner Family
DX: E78.5 Hyperlipidemia, unspecified (principal); I70.0 Atherosclerosis of aorta; F34.1 Dysthymic disorder; I51.7 Cardiomegaly; M81.0 Age-related osteoporosis without current pathological fracture; K21.9 Gastro-esophageal reflux disease without esophagitis; R53.82 Chronic fatigue, unspecified; R63.0 Anorexia; R53.83 Other fatigue
CPT/HCPCS: 36415; 80053; 80061; 82306; 82607; 84443; 85025

== ENCOUNTER 2024-12-19 14:54 | Outpatient (CLI) | payer MEDICARE, SELFPAY ==
--- NOTE | ~2024-12-19 | CT_ITS ---
Non-contrast CT scan of the Abdomen and Pelvis Clinical indication: Abdominal pain Technique: 2.5 mm axial scans were obtained through the abdomen and pelvis without intravenous or or al contrast. Dose reduction technique was used on this scan by utilizing automated exposure control a nd iterative reconstruction technique. The dose-length product (DLP) was 182.72 mGy-cm. COMPARISON: 03/20/2023 Findings: Images through the lung bases reveal no abnormalities. There is no evidence of renal or ureteral calculi. The kidneys and the ureters are nondilated. Multiple hepatic cysts again present. Marked dilatation of common bile duct is similar to prior exam, possibly related to prior cholecystectomy. The spleen, pancreas, and adrenals appear normal. There a re atherosclerotic calcifications of the aorta. . There is no evidence of bowel obstruction. Prominent stool suggests constipation. Images through the pelvis were performed. There is no evidence of ascites or lymphadenopathy. Urinary bladder unremarkable. No pelvic mass seen. Impression: Constipation. No other acute abnormality. Chronic findings, as above. Reviewed, dictated and finalized at location . Impression: Constipation. No other acute abnormality. Chronic findings, as above.
--- OUTSIDE RECORDS SUMMARY | 2024-12-19 14:58 | XMS_ITS | Clinical Summary ---
Author Organization [facility] Address [address] [facility] [address] [facility] [address] [address] Phone Care Team Providers Care Business Functional Analyst Name Role Phone Abdiel Butcher MD Primary Care Provider [phone]- [phone] Allergies Active Allergy Reactions Criticality Noted Date [...] Tablet, Sublingual 0.4 mg. 3 Active codeine-butalbi bww-egqmogj-zfx feine (ASCOMP WITH CODEINE) 26-92-012-40 mg capsule take 1 capsule by oral route every 4 hours as needed not to exceed 6 capsules per 24hrs 2 Active fluticasone propionate (FLONASE) 50 mcg/spray [place], Suspension nasal inhaler 1 [place] 1 time daily as needed. 8 Active [...] for Spasm. 40 Tablet 05/06/2019 4:16 PM GEAR LAPPING MACHINE OPERATOR 9 Active tiZANidine (ZANAFLEX) 4 mg Tablet [...] injection every 2 weeks. 2 mL 5 12/01/2024 6:04 PM CDT 5 Active Active Problems Problem Noted Date Diagnosed Date Lumbar spondylosis 09/10/2018 Resolved Problems Problem Noted Date Diagnosed Date Resolved Date Spondylolysis, lumbosacral 08/09/2018 0 09/10/2018 Encounters Date Type Department Care Team Description 12/02/2024 External Device Data STL ABSTRACTION Provider, Abstract 11/25/2024 External Device Data STL ABSTRACTION Provider, Abstract 11/04/2024 External Device Data STL ABSTRACTION Provider, [...] on file Legal Sex Female 1:49 PM GEAR LAPPING MACHINE OPERATOR Gender Identity Not on file Sexual Orientation Not on file Occupation Industry Job Start Date Job End Date retired/disabled Not on file Not on file Not on file Last Filed Vital Signs Vital Sign Reading Time Taken Comments Blood Pressure 105/53 05/06/2019 7:29 AM GEAR LAPPING MACHINE OPERATOR Pulse 65 05/06/2019 7:29 AM GEAR LAPPING MACHINE OPERATOR Temperature 36.7 C (98 F) 05/06/2019 7:29 AM GEAR LAPPING MACHINE OPERATOR Respiratory Rate 14 05/06/2019 3:43 AM GEAR LAPPING MACHINE OPERATOR Oxygen Saturation 94% 05/06/2019 7:29 AM GEAR LAPPING MACHINE OPERATOR Inhaled Oxygen Concentration - - Weight 62.1 kg (137 lb) 05/05/2019 7:35 AM GEAR LAPPING MACHINE OPERATOR Height 156.2 cm (5' 1.5) 04/28/2019 2:09 PM GEAR LAPPING MACHINE OPERATOR Body Mass Index 25.47 04/28/2019 2:09 PM GEAR LAPPING MACHINE OPERATOR Plan of Treatment Health Maintenance Due Date Last Done Comments DTAP/TDAP/TD VACCINES (1 - Tdap) 12/09/1967 PNEUMOCOCCAL VACCINE 50+ YEARS (1 of 2 - PCV) 12/08/18 68 ZOSTER VACCINE (1 of 2) 1998 OSTEOPOROSIS SCREENING 2013 RSV VACCINE (60+ or ) (1 - 1-dose 75+ series) 12/09/2023 INFLUENZA VACCINE (#1) 2025 Medical Devices Implanted Type Area Product Distribution Specialist Device Identifier Shelf Expiration Date Model / Serial / Lot [place] Imjex Bumpy [id number] - [id number] Implanted:Qty: 1 on 05/05/2019 by Marcy Chin MD at [facility] [place] N/A: Back [employer]- NEUROLOGIC TECH 01/15/2023 [id number] / / [id number] Patient Controller Intellis Ptm Implanted:Qty: 1 on 05/05/2019 by Marcy Chin MD at [facility] Integral N/A: Back [employer]- NEUROLOGIC TECH [id number] / / [id number] Lead Specify Surescan Mri 65cm [id number] - [id number] Implanted:Qty: 1 on 05/05/2019 by Marcy Chin MD at [facility] Lead N/A: Back [employer]- NEUROLOGIC TECH 01/10/2023 [id number] / / [id number] Battery Generaton Intellis [id number] Implanted:Qty: 1 on 05/05/2019 by Marcy Chin MD at [facility] Other N/A: Back [employer] 03/24/2020 [id number] / / [id number] H Patient Tunnel Worker Intellis Rtm Implanted:Qty: 1 on 05/05/2019 by Marcy Chin MD at [facility] Other N/A: Back [employer]- NEUROLOGIC TECH [id number] / / [id number] N Floseal Implanted:Qty: 1 on 05/05/2019 by Marcy Chin MD at [facility] N/A: Back [employer] [id number] 02/11/2020 [id number] / / [id number] Explanted Type Area Product Distribution Specialist Device Identifier Shelf Expiration Date Model / Serial / Lot Spinal Cord Stimulator Explanted:Qty: 1 on 05/05/2019 by Marcy Chin MD at [facility] N/A: Back Electrode Explanted:Qty: 1 on 05/05/2019 by Marcy Chin MD at [facility] N/A: Back Generator Explanted:Qty: 1 on 05/05/2019 by Marcy Chin MD at [facility] N/A: Back Insurance RX AETNA Medicare Part D RX PHARMACY [employer], [email or web address] Commercial Advance Directives For more information, please contact: [phone] Documents on File Type Date Recorded Patient Steamtable Attendant Railroad Expl anation Advance Directive POA 08/09/2018 1:47 PM Ad damico Directive POA * Full Code (Latest Code Status on File) Date Activated Date Inactivated Comments 05/05/2019 8:42 AM 05/06/2019 12:51 PM * Full Code Date Activated Date Inactivated Comments 05/05/2019 7:31 AM 05/05/2019 8:42 AM Care Teams Business Functional Analyst Relationship Specialty Start Date End Date Abdiel Butcher MD PCP - General Family Practice 07/23/18
--- OUTSIDE RECORDS SUMMARY | 2024-12-19 14:58 | XMS_ITS | Clinical Summary ---
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 jorje e dilated, Dr Taylor 2016; Comments: [facility] 11/16/2015 - Hx Other Medical Chronic pain 2n d back, knees; Comments: [facility] 05/25/2016 - Hx Other Medical Pain stimulator in back; Comments: [facility] 05/25/2016 - Brain aneurysm 1989 Had surgery at o [facility] GERD (gastroesophageal reflux disease) Gastritis [...] on file Legal Sex Female 8:19 AM NEGATIVE RETOUCHER Gender Identity Not on file Sexual Orientation [...] Health Maintenance Due Date Last Done Comments Depression Screening 1950 Osteoporosis Screening-Bone Density Scan 1948 DTaP/Tdap/Td Vaccine (1 - Tdap) 12/09/1959 Hepatitis B Screening 1966 Pneumococcal vaccine 65+ (1 of 2 - PCV) 12/09/1967 Zoster Vaccine (1 of 2) 1998 Well Visit 65+ 2013 Fall Risk Assessment 03/13/2023 03/13/2022 Covid-19 Vaccine ( season) 2024, 08/03/2020 Influenza Vaccine (#1) 2025 Hepatitis C Screening Completed 04/26/2016 Procedures Procedure Name Priority Date/Time Associated Diagnosis Comments SERUM HEPATITIS C AB Routine 04/26/2016 3:19 AM NEGATIVE RETOUCHER from Last 3 Months or Most Recently Relevant to Health Maintenance Results * Serum Hepatitis C ab (04/26/2016 3:19 AM NEGATIVE RETOUCHER) HCV ab NON-REACTI VE NON-REACTI VE CDR HISTORICAL RESULTS Hepatitis signal to cutoff ratio 0.01 <1.00 CDR HISTORICAL RESULTS Serum 04/26/2016 3:19 AM NEGATIVE RETOUCHER Narrative CDR HISTORICAL RESULTS - 04/27/2016 12:00 AM NEGATIVE RETOUCHER Test performed at [employer] [address] [place] [address] Director: FELICITY CIFUENTES DO,MPH us Historical Provider LAB BLOOD ORDERABLES Marilou gross Result CDR HISTORICAL RESULTS from Last 3 Months or Most Recently Relevant to Health Maintenance Insurance [facility] MEDICARE [facility] MEDICARE Advance Directives For more information, please contact: [phone] * Full Code (Latest Code Status on File) Date Activated Date Inactivated Comments 03/13/2022 12:12 PM 03/13/2022 7:24 PM Care Teams Feed Crusher Relationship Specialty Start Date End Date Abdiel Butcher MD [address] [place] [address] PCP - General 09/08/16
--- OUTSIDE RECORDS SUMMARY | 2024-12-19 14:58 | XMS_ITS | Clinical Summary ---
Author Organization [facility] Address [address] [place] [address] Care Team Providers Care Buffing And Polishing Wheel Repairer Name Role Phone Abdiel Butcher MD Primary Care Provider +1- [phone] Social History Tobacco Use Types Packs/Day Years Used Date Smoking Tobacco: Never Assessed Comments Unknown Sex and Gender Information Value Date Recorded Sex Assigned at Not on file Legal Sex Female 7:06 PM CDT Gender Identity Not on file Sexual Orientation Not on file Last Filed Vital Signs Vital Sign Reading Time Taken Comments Blood Pressure 151/69 05/07/2013 10:35 AM PRESIDENT AND CHIEF EXECUTIVE OFFICER Pulse 52 05/07/2013 10:35 AM PRESIDENT AND CHIEF EXECUTIVE OFFICER Temperature - - Respiratory Rate - - Oxygen Saturation - - Inhaled Oxygen Concentration - - Weight 58.1 kg (128 lb) 05/07/2013 10:35 AM PRESIDENT AND CHIEF EXECUTIVE OFFICER Height 156.2 cm (5' 1.5) 05/07/2013 10:35 AM CS T Body Mass Index 23.79 05/07/2013 10:35 AM PRESIDENT AND CHIEF EXECUTIVE OFFICER Plan of Treatment Health Maintenance Due Date Last Done Comments Hepatitis C 1966 DTaP, Tdap and Td Vaccines ( 1 - Tdap) 12/09/1967 Pneumococcal Vaccine: 50+ Ye ars (1 of 1 - PCV) 1998 Zoster Vaccines (1 of 2) 1998 Dexa Scan (General) 2013 RSV Immunization or 60+ Years (1 - 1-dose 75+ series) 12/09/2023 COVID-19 Vaccine ( - 2023-2 5 season) 2024 Meningococcal B Vaccine Aged Out No l onger eligible based on patient's age to complete this topic Meningococcal Vaccine Aged Out No jamia rashad eligible based on patient's age to complete this topic RSV Immunizations Under 20 Months Aged Out No longer eligible based on patient's age to complete this topic Advance Directives Documents on File Type Date Recorded Patient Carpenter Streetcar Expl anation Advance Directives and Geovannamarleen g Will 03/27/2013 POWER OF PRODUCT MARKETING CONSULTANT Care Teams Buffing And Polishing Wheel Repairer Relationship Specialty Start Date End Date Abdiel Butcher MD [address] [address] PCP - General 03/27/13
--- OUTSIDE RECORDS SUMMARY | 2024-12-19 14:58 | XMS_ITS | Referral Summary ---
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 [...] on file Legal Sex Female 8:19 AM GLOBAL MARKETING COORDINATOR Gender Identity Not on file Sexual Orientation [...] HEPATITIS C AB Routine 04/26/2016 3:19 AM GLOBAL MARKETING COORDINATOR from Last 3 Months or Most Recently Relevant to Health Maintenance Results * Serum Hepatitis C ab (04/26/2016 3:19 AM GLOBAL MARKETING COORDINATOR) HCV ab NON-REACTI VE NON-REACTI VE CDR HISTORICAL RESULTS Hepatitis signal to cutoff ratio 0.01 <1.00 CDR HISTORICAL RESULTS Serum 04/26/2016 3:19 AM GLOBAL MARKETING COORDINATOR Narrative CDR HISTORICAL RESULTS - 04/27/2016 12:00 AM GLOBAL MARKETING COORDINATOR Test performed at [facility] [address] [place] [address] Director: FELICITY CIFUENTES DO,MPH us Historical Provider LAB BLOOD ORDERABLES Marilou gross Result CDR HISTORICAL RESULTS from Last 3 Months or Most Recently Relevant to Health Maintenance Insurance T MEDICARE T MEDICARE Advance Directives For more information, please contact: [phone] * Full Code (Latest Code Status on File) Date Activated Date Inactivated Comments 03/13/2022 12:12 PM 03/13/2022 7:24 PM Care Teams Bookie Relationship Specialty Start Date End Date Abdiel Butcher MD [address] [place] [address] PCP - General 09/08/16
[2024-12-19 15:49] LABS: Hematocrit 40.6 % (37.0-47.0); Hemoglobin 12.7 g/dL (12.0-15.0); Immature Granulocyte Percent A 0.3 % (0-0.5); Lymphocytes Absolute Auto 1.82 K/mm3 (0.9-3.2); Mean Corpuscular HGB Conc 31.3 g/dl (32-36); Mean Corpuscular Hemoglobin 30.2 pg (26-34); Mean Corpuscular Volume 96.7 fl (80-100); Nucleated Red Blood Cells Absolute Auto 0.000 K/mm3 (0.0-0.012); Nucleated Red Blood Cells Perc 0.0 % (0.0-0.2); Platelet Count Result 107 k/mm3 (150-375); Red Blood Count 4.20 M/mm3 (4.2-5.4); White Blood Count 7.5 K/mm3 (4.5-10.0)
[2024-12-19 15:54] LABS: Add Urine Microscopic? YES; Appearance Urine Clear (Clear); Glucose Urine UA Negative (Negative); Leukocyte Esterase Ur Trace LEU/UL (Negative); Nitrate Urine Negative (Negative); Non Pathogenic Casts 0-2; Specific Grav Ur 1.019 (1.001-1.035)
[2024-12-19 16:01] LABS: Alanine Aminotransferase 23 U/L (6-35); Albumin Level 4.3 g/dL (3.5-5.1); Alkaline Phosphatase 54 U/L (38-126); Amylase 56 U/L (30-110); Anion Gap 6 mmol/L (4-12); Aspartate Amino Transferase 32 U/L (14-36); Bilirubin,Total 0.5 mg/dL (0.2-1.3); Blood Urea Nitrogen 15 mg/dL (7-17); Calcium 9.1 mg/dL (8.4-10.2); Carbon Dioxide 32 mmol/L (22-30); Chloride 102 mmol/L (98-107); Estimated Glomerular Filt Rate > 60; Glucose 95 mg/dL (65-110); Lipase 41 U/L (23-300); Potassium 3.8 mmol/L (3.4-5.0); Sodium 140 mmol/L (137-145); Total Protein 7.0 g/dL (6.3-8.2)
== END 2024-12-19 14:55 | disposition home or self-care (01) ==
LOC: ANHIMG 14:56
PROVIDERS: PCP Nurse Practitioner Family; Visit Provider Nurse Practitioner Family
DX: R10.9 Unspecified abdominal pain (principal); R30.0 Dysuria; K59.00 Constipation, unspecified
CPT/HCPCS: 36415; 74176; 80053; 81001; 82150; 83690; 85025

== ENCOUNTER 2025-01-02 14:48 | Outpatient (CLI) | payer MEDICARE, SELFPAY ==
--- OUTSIDE RECORDS SUMMARY | 2025-01-02 14:51 | XMS_ITS | Clinical Summary ---
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 vein coronary [...] jorje e dilated, Dr Taylor 2016; Comments: [facility] 11/16/2015 - Hx Other Medical Chronic pain 2n d back, knees; Comments: [facility] 05/25/2016 - Hx Other Medical Pain stimulator in back; Comments: [facility] 05/25/2016 - Brain aneurysm 1989 Had surgery at o [facility] GERD (gastroesophageal reflux disease) Gastritis Diverticulosis [...] on file Legal Sex Female 8:19 AM CHIEF MEDICAL PHYSICIST Gender Identity Not on file Sexual Orientation [...] HEPATITIS C AB Routine 04/26/2016 3:19 AM CHIEF MEDICAL PHYSICIST from Last 3 Months or Most Recently Relevant to Health Maintenance Results * Serum Hepatitis C ab (04/26/2016 3:19 AM CHIEF MEDICAL PHYSICIST) HCV ab NON-REACTI VE NON-REACTI VE CDR HISTORICAL RESULTS Hepatitis signal to cutoff ratio 0.01 <1.00 CDR HISTORICAL RESULTS Serum 04/26/2016 3:19 AM CHIEF MEDICAL PHYSICIST Narrative CDR HISTORICAL RESULTS - 04/27/2016 12:00 AM CHIEF MEDICAL PHYSICIST Test performed at [facility] [address] [place] [address] Director: FELICITY CIFUENTES DO,MPH us Historical Provider LAB BLOOD ORDERABLES Marilou gross Result CDR HISTORICAL RESULTS from Last 3 Months or Most Recently Relevant to Health Maintenance Insurance [facility] MEDICARE [facility] MEDICARE Advance Directives For more information, please contact: [phone] * Full Code (Latest Code Status on File) Date Activated Date Inactivated Comments 03/13/2022 12:12 PM 03/13/2022 7:24 PM Care Teams Cycle Counter Relationship Specialty Start Date End Date Abdiel Butcher MD [address] [place] [address] PCP - General 09/08/16
--- OUTSIDE RECORDS SUMMARY | 2025-01-02 14:51 | XMS_ITS | Clinical Summary ---
Author Organization [facility] Address [address] [facility] [address] [address] Phone Care Team Providers Care Reed Cleaner Name Role Phone Abdiel Butcher MD Primary Care Provider +1- [phone] Allergies Active Allergy Reactions Criticality Noted Date [...] Tablet, Sublingual 0.4 mg. 3 Active codeine-butalbi wpb-icqxugl-ced feine (ASCOMP WITH CODEINE) [id number] mg capsule take 1 capsule by oral route every 4 hours as needed not to exceed 6 capsules per 24hrs 2 Active fluticasone propionate (FLONASE) 50 mcg/spray [place], Suspension nasal inhaler 1 [place] 1 time daily as needed. 8 Active [...] for Spasm. 40 Tablet 05/06/2019 4:16 PM INFORMATION TECHNOLOGY ADVISOR 9 Active tiZANidine (ZANAFLEX) 4 mg Tablet [...] injection every 2 weeks. 2 mL 5 12/29/2024 2:22 PM CDT 5 Active Active Problems Problem Noted Date Diagnosed Date Lumbar spondylosis 09/10/2018 Resolved Problems Problem Noted Date Diagnosed Date Resolved Date Spondylolysis, lumbosacral 08/09/2018 0 09/10/2018 Encounters Date Type Department Care Team Description 12/24/2024 External Device Data [facility] ABSTRACTION Provider, Abstract 12/23/2024 External Device Data [facility] ABSTRACTION Provider, Abstract 12/02/2024 External Device Data [facility] ABSTRACTION Provider, [...] on file Legal Sex Female 1:49 PM INFORMATION TECHNOLOGY ADVISOR Gender Identity Not on file Sexual Orientation Not on file Occupation Industry Job Start Date Job End Date retired/disabled Not on file Not on file Not on file Last Filed Vital Signs Vital Sign Reading Time Taken Comments Blood Pressure 105/53 05/06/2019 7:29 AM INFORMATION TECHNOLOGY ADVISOR Pulse 65 05/06/2019 7:29 AM INFORMATION TECHNOLOGY ADVISOR Temperature 36.7 C (98 F) 05/06/2019 7:29 AM INFORMATION TECHNOLOGY ADVISOR Respiratory Rate 14 05/06/2019 3:43 AM INFORMATION TECHNOLOGY ADVISOR Oxygen Saturation 94% 05/06/2019 7:29 AM INFORMATION TECHNOLOGY ADVISOR Inhaled Oxygen Concentration - - Weight 62.1 kg (137 lb) 05/05/2019 7:35 AM INFORMATION TECHNOLOGY ADVISOR Height 156.2 cm (5' 1.5) 04/28/2019 2:09 PM INFORMATION TECHNOLOGY ADVISOR Body Mass Index 25.47 04/28/2019 2:09 PM INFORMATION TECHNOLOGY ADVISOR Plan of Treatment Health Maintenance Due Date Last Done Comments DTAP/TDAP/TD VACCINES (1 - Tdap) 12/09/1969 PNEUMOCOCCAL VACCINE 50+ YEARS (1 of 2 - PCV) 12/08/18 68 ZOSTER VACCINE (1 of 2) 1998 OSTEOPOROSIS SCREENING 2013 RSV VACCINE (60+ or ) (1 - 1-dose 75+ series) 12/09/2023 INFLUENZA VACCINE (#1) 2025 Medical Devices Implanted Type Area Banjo Repairer Device Identifier Shelf Expiration Date Model / Serial / Lot [place] Mirela Karimi [id number] - [id number] Implanted:Qty: 1 on 05/05/2019 by Marcy Chin MD at [facility] [employer] [place] N/A: Back [employer]- NEUROLOGIC TECH 01/15/2023 [id number] / / [id number] Patient Controller Intellis Ptm Implanted:Qty: 1 on 05/05/2019 by Marcy Chin MD at [facility] Integral N/A: Back [employer]- NEUROLOGIC TECH [id number] / / [id number] Lead Specify Surescan Mri 65cm [id number] - [id number] Implanted:Qty: 1 on 05/05/2019 by Marcy Chin MD at [facility] Lead N/A: Back [employer]- NEUROLOGIC TECH 01/10/2023 [id number] / / [id number] Battery Generaton Intellis [id number] Implanted:Qty: 1 on 05/05/2019 by Marcy Chin MD at [facility] Other N/A: Back [employer] 03/24/2020 [id number] / / [id number] Patient Cuff Matcher Intellis Rtm Implanted:Qty: 1 on 05/05/2019 by Marcy Chin MD at [facility] Other N/A: Back [employer]- NEUROLOGIC TECH [id number] / / [id number] N Floseal Implanted:Qty: 1 on 05/05/2019 by Marcy Chin MD at [facility] N/A: Back [employer]Shunt BREEZY [id number] 02/11/2020 [id number] / / [id number] Explanted Type Area Banjo Repairer Device Identifier Shelf Expiration Date Model / Serial / Lot Spinal Cord Stimulator Explanted:Qty: 1 on 05/05/2019 by Marcy Chin MD at [facility] N/A: Back Electrode Explanted:Qty: 1 on 05/05/2019 by Marcy Chin MD at [facility] N/A: Back Generator Explanted:Qty: 1 on 05/05/2019 by Marcy Chin MD at [facility] N/A: Back Insurance RX [employer] Medicare Part D [employer] Commercial Advance Directives For more information, please contact: [phone] Documents on File Type Date Recorded Patient Director Of Residence Life Expl anation Advance Directive POA 08/09/2018 1:47 PM Ad damico Directive POA * Full Code (Latest Code Status on File) Date Activated Date Inactivated Comments 05/05/2019 8:42 AM 05/06/2019 12:51 PM * Full Code Date Activated Date Inactivated Comments 05/05/2019 7:31 AM 05/05/2019 8:42 AM Care Teams Reed Cleaner Relationship Specialty Start Date End Date Abdiel Butcher MD PCP - General Family Practice 07/23/18
--- OUTSIDE RECORDS SUMMARY | 2025-01-02 14:51 | XMS_ITS | Clinical Summary ---
Author Organization [facility] Address [address] [place] [address] Care Team Providers Care Clinical Trial Associate Name Role Phone Abdiel Butcher MD Primary Care Provider +1- [phone] Social History Tobacco Use Types Packs/Day Years Used Date Smoking Tobacco: Never Assessed Comments Unknown Sex and Gender Information Value Date Recorded Sex Assigned at Not on file Legal Sex Female 7:06 PM CDT Gender Identity Not on file Sexual Orientation Not on file Last Filed Vital Signs Vital Sign Reading Time Taken Comments Blood Pressure 151/69 05/07/2013 10:35 AM MICROBIAL SPECIALIST Pulse 52 05/07/2013 10:35 AM MICROBIAL SPECIALIST Temperature - - Respiratory Rate - - Oxygen Saturation - - Inhaled Oxygen Concentration - - Weight 58.1 kg (128 lb) 05/07/2013 10:35 AM MICROBIAL SPECIALIST Height 156.2 cm (5' 1.5) 05/07/2013 10:35 AM CS T Body Mass Index 23.79 05/07/2013 10:35 AM MICROBIAL SPECIALIST Plan of Treatment Health Maintenance Due Date [...] Documents on File Type Date Recorded Patient Pain Management Nurse Practitioner Expl anation Advance Directives and Geovannamarleen g Will 03/27/2013 POWER OF HANDLE TURNER Care Teams Clinical Trial Associate Relationship Specialty Start Date End Date Abdiel Butcher MD [address] [address] PCP - General 03/27/13
--- OUTSIDE RECORDS SUMMARY | 2025-01-02 14:51 | XMS_ITS | Referral Summary ---
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 coronary [...] on file Legal Sex Female 8:19 AM RECONCILEMENT CLERK Gender Identity Not on file Sexual Orientation [...] HEPATITIS C AB Routine 04/26/2016 3:19 AM RECONCILEMENT CLERK from Last 3 Months or Most Recently Relevant to Health Maintenance Results * Serum Hepatitis C ab (04/26/2016 3:19 AM RECONCILEMENT CLERK) HCV ab NON-REACTI VE NON-REACTI VE CDR HISTORICAL RESULTS Hepatitis signal to cutoff ratio 0.01 <1.00 CDR HISTORICAL RESULTS Serum 04/26/2016 3:19 AM RECONCILEMENT CLERK Narrative CDR HISTORICAL RESULTS - 04/27/2016 12:00 AM RECONCILEMENT CLERK Test performed at [facility] [address] [place] [address] Director: FELICITY CIFUENETS DO,MPH us Historical Provider LAB BLOOD ORDERABLES Marilou gross Result CDR HISTORICAL RESULTS from Last 3 Months or Most Recently Relevant to Health Maintenance Insurance T MEDICARE T MEDICARE Advance Directives For more information, please contact: [phone] * Full Code (Latest Code Status on File) Date Activated Date Inactivated Comments 03/13/2022 12:12 PM 03/13/2022 7:24 PM Care Teams Storage Battery Inspector And Tester Relationship Specialty Start Date End Date Abdiel Butcher MD [address] [place] [address] PCP - General 09/08/16
[2025-01-02 15:31] LABS: Add Urine Microscopic? YES; Appearance Urine Clear (Clear); Glucose Urine UA Negative (Negative); Leukocyte Esterase Ur Trace LEU/UL (Negative); Nitrate Urine Negative (Negative); Non Pathogenic Casts 0-2; Specific Grav Ur 1.019 (1.001-1.035)
== END 2025-01-02 14:49 | disposition home or self-care (01) ==
PROVIDERS: PCP Nurse Practitioner Family; Visit Provider Nurse Practitioner Family
DX: R30.0 Dysuria (principal)
CPT/HCPCS: 81001